=== PATIENT | female | born 1945 | race Caucasian/White ===

== ENCOUNTER → 2016-11-09 | Outpatient (CLI) | payer MEDICARE, BC | LOC: MMGSC 17:16 | PROVIDERS: ATTEND Family Medicine | DX: R94.6 Abnormal results of thyroid function studies (principal) | CPT/HCPCS: 36415; 84439; 84443; 99214 ==

== ENCOUNTER 2016-11-13 19:29 | Inpatient (IN) | payer MEDICARE, BC ==
[2016-11-13] MEDS ORDERED: ASPIRIN 81 MG CHEW PO STA (20:04)
[2016-11-13 20:36] LABS: ALT 33 U/L (9-52); AST 51 U/L (14-36); Acetaminophen <10.0 ug/mL; Alcohol <10 mg/dL; Alkaline Phosphatase 81 U/L (38-126); Anion Gap 7 mmol/L; Blood Urea Nitrogen 32 mg/dL (7-17); Calcium 9.1 mg/dL (8.4-10.2); Carbon Dioxide 30 mmol/L (22-30); Chloride 100 mmol/L (98-107); Glucose 122 mg/dL (74-99); Magnesium 1.6 mg/dL (1.6-2.3); Non-African American GFR(MDRD) >60 (>60 ml/min/1.73 sqM); Potassium 4.2 mmol/L (3.5-5.1); Salicylate <1.0 mg/dL; Sodium 137 mmol/L (137-145); Total Bilirubin 0.6 mg/dL (0.2-1.3); Total Protein 6.3 g/dL (6.3-8.2)
[2016-11-13 20:40] LABS: Basophils % (A) 1 %; CH 29.1; CHCM 31.2; Eosinophils # (A) 0.1 k/uL (0-0.7); Eosinophils % (A) 2 %; HCT 36.1 % (34.0-46.0); HDW 3.17; HGB 11.5 gm/dL (11.4-16.0); Hypochromasia Moderate; Luc # (Auto) 0.11; Luc % (Auto) 2; Lymphocytes # (A) 0.8 k/uL (1.0-4.8); Lymphocytes % (A) 17 %; MCHC 31.9 g/dL (31.0-37.0); MCV 93.9 fL (80.0-100.0); Mean Platelet Volume 8.2; Monocytes # (A) 0.3 k/uL (0-1.0); Monocytes % (A) 7 %; Neutrophils # (A) 3.5 k/uL (1.3-7.7); Neutrophils % (A) 71 %; RBC 3.84 m/uL (3.80-5.40); RDW 15.1 % (11.5-15.5); WBC 4.9 k/uL (3.8-10.6); WBC (Perox) 5.05
--- NOTE | 2016-11-13 20:50 | ED ---
General Adult HPI - General Chief complaint: Psychiatric Symptoms Stated complaint: Anxiety, SOB Time Seen by Provider: 11/13/16 19:55 Source: patient Mode of arrival: EMS Limitations: no limitations - History of Present Illness Initial comments: This 71-year-old white female presents with a complaint of some left-sided chest pain and shortness of breath. She apparently was quite anxious at home. Her said that she was hyperventilating. She presents by EMS. She does have a history of COPD and utilizes 2.5 L per hour of oxygen. She does have a history of anxiety. She also has a history of depression and apparently told the nurse initially that she is suicidal but denies any suicidal ideations to myself and an additional nurse. She complains of some mild lower extremity swelling in her feet. This apparently has been somewhat chronic over the last month or 2. He denies any history of DVT or PE. - Related Data Home Medications Medication Instructions Recorded Confirmed Dextroamphetamine/Amphetamine 15 mg PO BID PRN 08/27/15 11/13/16 [Adderall] Fenofibrate Nanocrystallized 145 mg PO DAILY 08/27/15 11/13/16 [Fenofibrate] LORazepam [Lorazepam] 1 mg PO TID 08/27/15 11/13/16 Metoprolol Tartrate 25 mg PO BID 08/27/15 11/13/16 Pregabalin [Lyrica] 150 mg PO HS 08/27/15 11/13/16 oxyCODONE HCL/ACETAMINOPHEN 1 tab PO QID PRN 08/27/15 11/13/16 [Oxycodone-Acetaminophen 10-325] Albuterol Inhaler [Ventolin Hfa 2 puff INHALATION RT-QID PRN 11/13/16 11/13/16 Inhaler] Ergocalciferol [Vitamin D2] 50,000 unit PO MO 11/13/16 11/13/16 Furosemide [Lasix] 20 mg PO DAILY PRN 11/13/16 11/13/16 Allergies Allergy/AdvReac Type Severity Reaction Status Date / Time No Known Allergies Allergy Verified 11/13/16 20:29 Review of Systems ROS Statement: Those systems with pertinent positive or pertinent negative responses have been documented in the HPI. ROS Other: All systems not noted in ROS Statement are negative. Past Medical History Past Medical History: Cancer, COPD, Fibromyalgia, Hyperlipidemia, Hypertension, Musculoskeletal Disorder, Osteoarthritis (OA) History of Any Multi-Drug Resistant Organisms: None Reported Past Surgical History: Unable to Obtain, Adenoidectomy, Joint Replacement, Orthopedic Surgery, Tonsillectomy Additional Past Surgical History / Comment(s): left lower lung removed, left total knee arthroplasty, tonsillectomy and adenoidectomy. Past Psychological History: No Psychological Hx Reported Smoking Status: Current every day smoker Past Alcohol Use History: None Reported Past Drug Use History: None Reported - Past Family History Mother Family Medical History: Cancer (Mother at age of 69 from colon cancer with metastatic disease) Additional Family Medical History / Comment(s): colon CA Father Family Medical History: Vascular Disorder (Father at age of 70 from a PAD with carotid endarterectomy.) Sister(s) Family Medical History: Cancer (Patient has 6 sisters one from lung cancer at the age of 60 the other one at age 50 from renal failure on hemodialysis ), Renal Disease Son(s) Family Medical History: No Reported History (Patient has 3 sons no major medical problems) General Exam - General Exam Comments Initial Comments: GENERAL: The patient is well nourished and well hydrated. VITAL SIGNS: Heart rate, blood pressure, respiratory rate reviewed as recorded in nurse's notes. EYES: Pupils are round and reactive. Extraocular movements are intact. No conjunctival / lid redness or swelling. ENT: No external evidence of injury, swelling, or ecchymosis. Airway is patent. Throat is clear. NECK: Nontender. No swelling or evidence of injury. No subcutaneous emphysema. Trachea is midline. No thyroid mass. HEART: Regular rate and rhythm. Good peripheral pulses. LUNGS/CHEST: Breath sounds clear and equal bilaterally. No rales, rhonchi, or wheezes. No ecchymosis, subcutaneous emphysema, or tenderness. ABDOMEN: Abdomen soft without tenderness. No palpable masses or organomegaly. No peritoneal signs. No abdominal wall swelling or ecchymosis. EXTREMITIES: No extremity tenderness. Normal muscle tone and function. No thoracolumbar tenderness. There is some slight swelling into the feet. NEUROLOGIC: Sensation is grossly intact. Cranial nerve exam reveals face is symmetrical, tongue is midline, speech is clear. SKIN: No abrasions or ecchymosis is noted. No induration or masses noted. PSYCHIATRIC: Alert and oriented. Appropriate behavior and judgment. Limitations: no limitations Course Vital Signs 11/13/16 11/13/16 11/13/16 19:42 21:17 21:29 Temperature 97.6 F Pulse Rate 72 76 78 Respiratory 22 Rate Blood Pressure 127/57 O2 Sat by Pulse 98 Oximetry 11/13/16 11/13/16 11/14/16 22:22 23:32 00:47 Temperature Pulse Rate 70 74 67 Respiratory 20 20 20 Rate Blood Pressure 132/62 124/69 126/60 O2 Sat by Pulse 96 96 100 Oximetry Medical Decision Making - Medical Decision Making The patient was seen and examined. All diagnostics were reviewed. An EKG was done which shows a normal sinus rhythm at a rate is 73. There is no acute ST-T wave changes identified. The OH interval is 126, castration is 98, and QTC intervals 438. The chest x-ray did not show any acute processes. The d-dimer was elevated on the labs. The BNP is significantly elevated as well. The troponin is moderately elevated. The computed tomography scan of the thorax does show a right upper lobe 2.7 cm mass. No evidence of PE is noted. The patient is sleeping on recheck and is in no distress after receiving some Ativan. She is also given 40 mg of Lasix. It is felt as though she would require admission to the hospital for further treatment. She is agreeable. The family is updated. The case will be discussed with internal medicine shortly. - Lab Data Result diagrams: 11/13/16 20:04 11/13/16 20:04 Lab Results 11/13/16 11/13/16 11/13/16 Range/Units 20:04 20:04 20:04 WBC 4.9 (3.8-10.6) k/uL RBC 3.84 (3.80-5.40) m/uL Hgb 11.5 (11.4-16.0) gm/dL Hct 36.1 (34.0-46.0) % MCV 93.9 (80.0-100.0) fL MCH 30.0 (25.0-35.0) pg MCHC 31.9 (31.0-37.0) g/dL RDW 15.1 (11.5-15.5) % Plt Count 236 (150-450) k/uL Neutrophils % 71 % Lymphocytes % 17 % Monocytes % 7 % Eosinophils % 2 % Basophils % 1 % Neutrophils # 3.5 (1.3-7.7) k/uL Lymphocytes # 0.8 L (1.0-4.8) k/uL Monocytes # 0.3 (0-1.0) k/uL Eosinophils # 0.1 (0-0.7) k/uL Basophils # 0.0 (0-0.2) k/uL Hypochromasia Moderate Anisocytosis (manual) Present Stomatocytes Present PT (9.0-12.0) sec INR (<1.1) APTT (22.0-30.0) sec D-Dimer (<0.60) mg/L FEU Sodium 137 (137-145) mmol/L Potassium 4.2 (3.5-5.1) mmol/L Chloride 100 (98-107) mmol/L Carbon Dioxide 30 (22-30) mmol/L Anion Gap 7 mmol/L BUN 32 H (7-17) mg/dL Creatinine 0.81 (0.52-1.04) mg/dL Est GFR (MDRD) Af Amer >60 (>60 ml/min/1.73 sqM) Est GFR (MDRD) Non-Af >60 (>60 ml/min/1.73 sqM) Glucose 122 H (74-99) mg/dL Calcium 9.1 (8.4-10.2) mg/dL Magnesium 1.6 (1.6-2.3) mg/dL Total Bilirubin 0.6 (0.2-1.3) mg/dL AST 51 H (14-36) U/L ALT 33 (9-52) U/L Alkaline Phosphatase 81 (38-126) U/L Total Creatine Kinase 31 (30-135) U/L CK-MB (CK-2) 2.3 (0.0-2.4) ng/mL CK-MB (CK-2) Rel Index 7.4 Troponin I 0.122 H* (0.000-0.034) ng/mL NT-Pro-B Natriuret Pep pg/mL Total Protein 6.3 (6.3-8.2) g/dL Albumin 3.4 L (3.5-5.0) g/dL Urine Color Urine Appearance (Clear) Urine pH (5.0-8.0) Ur Specific Homer (1.001-1.035) Urine Protein (Negative) Urine Glucose (UA) (Negative) Urine Ketones (Negative) Urine Blood (Negative) Urine Nitrite (Negative) Urine Bilirubin (Negative) Urine Urobilinogen (<2.0) mg/dL Ur Leukocyte Esterase (Negative) Urine RBC (0-5) /hpf Urine WBC (0-5) /hpf Ur Squamous Epith Cells (0-4) /hpf Urine Mucus (None) /hpf Urine Yeast (Budding) (None) /hpf Salicylates <1.0 mg/dL Urine Opiates Screen (NotDetected) Ur Oxycodone Screen (NotDetected) Urine Methadone Screen (NotDetected) Ur Propoxyphene Screen (NotDetected) Acetaminophen <10.0 ug/mL Ur Barbiturates Screen (NotDetected) U Tricyclic Antidepress (NotDetected) Ur Phencyclidine Scrn (NotDetected) Ur Amphetamines Screen (NotDetected) U Methamphetamines Scrn (NotDetected) U Benzodiazepines Scrn (NotDetected) Urine Cocaine Screen (NotDetected) U Marijuana (THC) Screen (NotDetected) Serum Alcohol <10 mg/dL 11/13/16 11/13/16 11/13/16 Range/Units 20:04 20:04 23:20 WBC (3.8-10.6) k/uL RBC (3.80-5.40) m/uL Hgb (11.4-16.0) gm/dL Hct (34.0-46.0) % MCV (80.0-100.0) fL MCH (25.0-35.0) pg MCHC (31.0-37.0) g/dL RDW (11.5-15.5) % Plt Count (150-450) k/uL Neutrophils % % Lymphocytes % % Monocytes % % Eosinophils % % Basophils % % Neutrophils # (1.3-7.7) k/uL Lymphocytes # (1.0-4.8) k/uL Monocytes # (0-1.0) k/uL Eosinophils # (0-0.7) k/uL Basophils # (0-0.2) k/uL Hypochromasia Anisocytosis (manual) Stomatocytes PT 12.5 H (9.0-12.0) sec INR 1.3 (<1.1) APTT 24.7 (22.0-30.0) sec D-Dimer 0.68 H (<0.60) mg/L FEU Sodium (137-145) mmol/L Potassium (3.5-5.1) mmol/L Chloride (98-107) mmol/L Carbon Dioxide (22-30) mmol/L Anion Gap mmol/L BUN (7-17) mg/dL Creatinine (0.52-1.04) mg/dL Est GFR (MDRD) Af Amer (>60 ml/min/1.73 sqM) Est GFR (MDRD) Non-Af (>60 ml/min/1.73 sqM) Glucose (74-99) mg/dL Calcium (8.4-10.2) mg/dL Magnesium (1.6-2.3) mg/dL Total Bilirubin (0.2-1.3) mg/dL AST (14-36) U/L ALT (9-52) U/L Alkaline Phosphatase (38-126) U/L Total Creatine Kinase (30-135) U/L CK-MB (CK-2) (0.0-2.4) ng/mL CK-MB (CK-2) Rel Index Troponin I (0.000-0.034) ng/mL NT-Pro-B Natriuret Pep 95285 pg/mL Total Protein (6.3-8.2) g/dL Albumin (3.5-5.0) g/dL Urine Color Light Yellow Urine Appearance Cloudy H (Clear) Urine pH 6.5 (5.0-8.0) Ur Specific Homer 1.009 (1.001-1.035) Urine Protein Negative (Negative) Urine Glucose (UA) Negative (Negative) Urine Ketones Negative (Negative) Urine Blood Trace H (Negative) Urine Nitrite Positive H (Negative) Urine Bilirubin Negative (Negative) Urine Urobilinogen <2.0 (<2.0) mg/dL Ur Leukocyte Esterase Large H (Negative) Urine RBC 8 H (0-5) /hpf Urine WBC >182 H (0-5) /hpf Ur Squamous Epith Cells <1 (0-4) /hpf Urine Mucus Rare H (None) /hpf Urine Yeast (Budding) Few H (None) /hpf Salicylates mg/dL Urine Opiates Screen Not Detected (NotDetected) Ur Oxycodone Screen Detected H (NotDetected) Urine Methadone Screen Not Detected (NotDetected) Ur Propoxyphene Screen Not Detected (NotDetected) Acetaminophen ug/mL Ur Barbiturates Screen Not Detected (NotDetected) U Tricyclic Antidepress Not Detected (NotDetected) Ur Phencyclidine Scrn Not Detected (NotDetected) Ur Amphetamines Screen Detected H (NotDetected) U Methamphetamines Scrn Not Detected (NotDetected) U Benzodiazepines Scrn Detected H (NotDetected) Urine Cocaine Screen Not Detected (NotDetected) U Marijuana (THC) Screen Not Detected (NotDetected) Serum Alcohol mg/dL Disposition Clinical Impression: Acute anxiety, Acute exacerbation of chronic obstructive airways disease, Depression, Chest pain, Dyspnea, Lung mass, UTI (urinary tract infection), Elevated troponin Disposition: ADMITTED IP TO THIS [facility] Condition: Fair Time of Disposition: 00:53 Decision Date: 11/14/16 Decision Time: 00:53
[2016-11-13] MEDS ORDERED: IPRATROPIUM-ALBUTEROL 3 ML NEB INHALATION STA (20:51)
[2016-11-13 20:53] LABS: Creatine Kinase MB 2.3 ng/mL (0.0-2.4)
[2016-11-13 20:54] LABS: Troponin I 0.122 ng/mL (0.000-0.034)
[2016-11-13 20:56] LABS: INR 1.3 (<1.1); Partial Thromboplastin Time 24.7 sec (22.0-30.0); Prothrombin Time 12.5 sec (9.0-12.0)
[2016-11-13] MEDS ORDERED: NITROGLYCERIN OINT 1 INCH/GM PACKET TOPICAL STA (20:56)
--- NOTE | 2016-11-13 20:59 | XR ---
EXAMINATION TYPE: XR chest 2V DATE OF EXAM: 11/13/2016 8:35 PM COMPARISON: 08/26/2015 HISTORY: Pain TECHNIQUE: Frontal and lateral views of the chest are obtained. FINDINGS: Previously seen left hilar clips redemonstrated. There are a few scattered linear shadows throughout the lung parenchyma bilaterally, seen on the prior study, and likely chronic. Overall, the lung parenchyma appears clear bilaterally. Pleural spaces appear negative. Cardiac silhouette is top normal in size. Bones and soft tissues are unremarkable. IMPRESSION: NO DEFINITE ACUTE PROCESS.
[2016-11-13 21:14] LABS: Stomatocytes Present
[2016-11-13] MEDS ORDERED: RX INFO: IV CONTRAST WAS GIVEN 1 EACH MISC MISCELLANE PRN (22:00)
[2016-11-13] MEDS ORDERED: FUROSEMIDE 10 MG/ML 4 ML VIAL IV STA (22:01)
[2016-11-13] MEDS ORDERED: LORazepam 2 MG/ML SYRINGE IV STA (22:31)
[2016-11-13 23:43] LABS: Appearance,Urine Cloudy (Clear); Bilirubin,Urine Negative (Negative); Glucose,Urine (UA) Negative (Negative); Ketones,Urine Negative (Negative); Leukocyte Esterase,Urine Large (Negative); Mucus,Urine Rare /hpf; Nitrite,Urine Positive (Negative); PH, Urine 6.5 (5.0-8.0); Particle Count 5055; Protein,Urine Negative (Negative); RBC,Urine 8 /hpf (0-5); Specific Gravity,Urine 1.009 (1.001-1.035); Squamous Epithelial Cell,Urine <1 /hpf (0-4); UA Billing (MACRO vs. MICRO) MICRO; Urobilinogen,Urine <2.0 mg/dL (<2.0); WBC,Urine >182 /hpf (0-5)
--- NOTE | 2016-11-14 00:17 | CT ---
ADDENDUM - Added by Bhupendra Campbell M.D. on 12/06/2016 2:49 AM (-07:00) Coronal and sagittal maximum intensity projection reformats were created on a separate workstation and submitted for review. EXAM: CT Chest With Intravenous Contrast CLINICAL HISTORY: Reason: Pain TECHNIQUE: Axial computed tomography images of the chest with intravenous contrast during the arterial phase of enhancement. Coronal and sagittal reformats submitted. CTDI is 30.32 mGy and DLP is 323.91 mGy-cm This CT exam was performed using one or more of the following dose reduction techniques: automated exposure control, adjustment of the mA and/or kV according to patient size, and/or use of iterative reconstruction technique. COMPARISON: No relevant prior studies available. FINDINGS: Pulmonary arteries: Dilated central pulmonary arteries suggesting pulmonary arterial hypertension. No pulmonary embolism. Aorta: No aortic aneurysm or dissection. Lungs: Extensive emphysema, probably centrilobular bilaterally. Spiculated 2.7 cm mass at the periphery/lateral lower segment of the right upper lobe. Pleural space: Small right and left pleural effusion. No pneumothorax. Heart: Unremarkable. No cardiomegaly. No significant pericardial effusion. No evidence of RV dysfunction. Bones/joints: No acute fracture. No dislocation. Soft tissues: Unremarkable. Lymph nodes: Unremarkable. No enlarged lymph nodes. IMPRESSION: No PE. Suspicious 2.7 cm spiculated mass at the right upper lobe. [employer] 11/14/16 00:54 Verify Receipt Verified receipt with DEBRA Handley who verified received by Dr. Harden on 11/14 00:53 (-04:00)
[2016-11-14] MEDS ORDERED: NITROGLYCERIN SL TABS 0.4 MG TAB SUBLINGUAL PRN (01:11)
[2016-11-14] MEDS ORDERED: HEPARIN SODIUM,PORCINE 5,000 UNIT/ML 1 ML VIAL IV ONE (01:11)
[2016-11-14] MEDS ORDERED: HEPARIN SODIUM,PORCINE 5,000 UNIT/ML 1 ML VIAL IV PRN (01:11)
[2016-11-14] MEDS ORDERED: ALBUTEROL NEBULIZED 2.5 MG/3 ML INHALATION PRN (01:15)
[2016-11-14] MEDS ORDERED: NON-FORMULARY DRUG (Dextroamphetamine/Amphetamine [Adderall] 15 MG) PO PRN (01:15)
[2016-11-14] MEDS: HEPARIN SODIUM,PORCINE/D5W PMX 25,000 UNIT in DEXTROSE/WATER 1 500ML.BAG IV SCH (01:38)
[2016-11-14] MEDS: NITROGLYCERIN OINT 1 INCH/GM PACKET TOPICAL SCH ×4 (06:38→23:04)
[2016-11-14] MEDS: METOPROLOL TARTRATE 25 MG TAB PO SCH ×2 (07:55→21:52)
[2016-11-14] MEDS: ASPIRIN 325 MG TAB PO SCH (07:55)
[2016-11-14] MEDS: FUROSEMIDE 10 MG/ML 4 ML VIAL IV SCH ×2 (07:55→21:52)
[2016-11-14] MEDS: oxyCODONE-APAP 10-325MG 1 EACH TAB PO PRN ×2 (07:56→14:42)
[2016-11-14] MEDS: FENOFIBRATE 160 MG TAB PO SCH (07:57)
[2016-11-14] MEDS: LORazepam 1 MG TAB PO SCH ×2 (07:57→17:57)
--- NOTE | 2016-11-14 08:42 | P.CRDCN ---
History of Present Illness Consult date: 11/14/16 Requesting physician: Selena Wiggins Consult reason: chest pain, shortness of breath Chief complaint: Chest discomfort and shortness of breath History of present illness: His is a 71-year-old female with known history of COPD, history of lung cancer approximately 24 years ago, fibromyalgia, major depressive and anxiety disorder, hypertension, hyperlipidemia, family history of premature coronary artery disease, nicotine dependence, is admitted to the hospital with symptoms of progressively worsening shortness of breath with associated left- sided chest discomfort. According to the patient, she's been getting progressively more short of breath at home, she states that when this happens she hyperventilates and then develops chest pain. Patient also states that for the past 3 weeks or more she has noticed an increase in leg swelling bilaterally. She states she has never been told in the past to have any congestive cardiac failure. At the time of my examination this morning, she still appears short of breath, she denies any chest pain at present. KG on presentation here shows normal sinus rhythm with nonspecific ST-T wave changes. Subsequent EKG performed this morning shows normal sinus rhythm with inferior lateral ST-T wave changes. Chest x-ray does not reveal any acute process. White blood cell count 4.9, hemoglobin 11.5, d-dimer 0.68, potassium 4.2, BUN 32 , creatinine 0.8. Troponins 0.12, 0.14. BNP level 12,900. Drug screen positive for oxycodone amphetamines and benzodiazepines. Pressure on arrival 128/58 with a heart rate in the 70s. 98% on 4 L of oxygen. Patient was given 40 mg of IV Lasix in the emergency room and is currently on 40 mg of Lasix IV twice a day. She is also on IV heparin. Past Medical History Past Medical History: Cancer, COPD, Fibromyalgia, Hyperlipidemia, Hypertension, Musculoskeletal Disorder, Osteoarthritis (OA), Pneumonia History of Any Multi-Drug Resistant Organisms: None Reported Past Surgical History: Adenoidectomy, Joint Replacement, Orthopedic Surgery, Tonsillectomy Additional Past Surgical History / Comment(s): left lower lung removed, left total knee arthroplasty, tonsillectomy and adenoidectomy. Past Psychological History: No Psychological Hx Reported Smoking Status: Current every day smoker Past Alcohol Use History: None Reported Past Drug Use History: None Reported - Past Family History Mother Family Medical History: Cancer Additional Family Medical History / Comment(s): colon CA Father Family Medical History: Vascular Disorder Sister(s) Family Medical History: Cancer, Renal Disease Son(s) Family Medical History: No Reported History Medications and Allergies Home Medications Medication Instructions Recorded Confirmed Type Dextroamphetamine/Amphetamine 15 mg PO BID PRN 08/27/15 11/13/16 History [Adderall] Fenofibrate Nanocrystallized 145 mg PO DAILY 08/27/15 11/13/16 History [Fenofibrate] LORazepam [Lorazepam] 1 mg PO TID 08/27/15 11/13/16 History Metoprolol Tartrate 25 mg PO BID 08/27/15 11/13/16 History Pregabalin [Lyrica] 150 mg PO HS 08/27/15 11/13/16 History oxyCODONE HCL/ACETAMINOPHEN 1 tab PO QID PRN 08/27/15 11/13/16 History [Oxycodone-Acetaminophen 10-325] Albuterol Inhaler [Ventolin Hfa 2 puff INHALATION RT-QID PRN 11/13/16 11/13/16 History Inhaler] Ergocalciferol [Vitamin D2] 50,000 unit PO MO 11/13/16 11/13/16 History Furosemide [Lasix] 20 mg PO DAILY PRN 11/13/16 11/13/16 History Allergies Allergy/AdvReac Type Severity Reaction Status Date / Time No Known Allergies Allergy Verified 11/13/16 20:29 Physical Exam Vitals: Vital Signs Temp Pulse Pulse Pulse Resp BP BP 11/14/16 08:00 97.9 F 70 18 127/60 11/14/16 03:13 71 18 11/14/16 02:04 97.1 F L 71 18 126/58 11/14/16 01:42 68 20 102/56 Pulse Ox 11/14/16 08:00 94 L 11/14/16 03:13 11/14/16 02:04 97 11/14/16 01:42 96 Intake and Output 11/13/16 11/14/16 11/14/16 22:59 06:59 14:59 Intake Total 40 Balance 40 Intake: IV 40 0.9 NS 40 Other: # Voids 1 Weight 41.2 kg 41.2 kg Patient Weight 11/15/16 06:59 Weight 41.2 kg PHYSICAL EXAMINATION: HEENT: Head is atraumatic, normocephalic. Pupils equal, round. Neck is supple. There is elevated jugular venous pressure. HEART EXAMINATION: S1 and S2 1 systolic murmur is heard. CHEST EXAMINATION: Lungs reveal decreased air exchange throughout with fine rales to bilateral bases. ABDOMEN: Soft, nontender. Bowel sounds are heard. No organomegaly noted. EXTREMITIES: 2+ peripheral pulses with 2+ evidence of peripheral edema and no calf tenderness noted. NEUROLOGIC patient is awake, alert and oriented -3. Very Anxious. . Results 11/13/16 20:04 11/13/16 20:04 Cardiac Enzymes 11/14/16 11/14/16 Range/Units 03:03 06:32 CK-MB (CK-2) 2.0 (0.0-2.4) ng/mL Troponin I 0.149 H* (0.000-0.034) ng/mL Current Medications Generic Name Dose Route Start Last Admin Trade Name Freq PRN Reason Stop Dose Admin Albuterol Sulfate 2.5 mg 11/14/16 01:15 Ventolin Nebulized INHALATION RT-QID PRN Shortness Of Breath Aspirin 325 mg 11/14/16 09:00 11/14/16 07:55 Aspirin PO 325 mg DAILY PETRA Administration Ergocalciferol 50,000 unit 11/20/16 09:00 Vitamin D2 PO Mo@0900 PETRA Fenofibrate 160 mg 11/14/16 09:00 11/14/16 07:57 Lofibra PO 160 mg DAILY PETRA Administration Furosemide 40 mg 11/14/16 09:00 11/14/16 07:55 Lasix IV 40 mg BID PETRA Administration Heparin Sodium (Porcine) 0 unit 11/14/16 01:11 Heparin IV Q6HR PRN Low PTT Protocol Heparin Sodium/Dextrose 25,000 500 mls @ 14.69 mls/hr 11/14/16 01:15 01:38 unit/ IV Solution IV 12 units/kg/hr .Q24H PETRA 14.69 mls/hr Protocol Administration 12 UNITS/KG/HR Ceftriaxone Sodium 1,000 mg/ 50 mls @ 100 mls/hr 11/14/16 23:00 Sodium Chloride IVPB HS PETRA Lorazepam 1 mg 11/14/16 09:00 11/14/16 07:57 Ativan PO 1 mg TID PTERA Administration Metoprolol Tartrate 25 mg 11/14/16 09:00 11/14/16 07:55 Lopressor PO 25 mg BID PETRA Administration Miscellaneous Information 1 each 11/13/16 22:00 11/13/16 22:19 Rx Info: Iv Contrast Was Given MISCELLANE 11/15/16 22:00 1 each DAILY PRN Administration Per Protocol Nitroglycerin 1 inch 11/14/16 06:00 11/14/16 06:38 Nitro-Bid Oint TOPICAL 1 inch Q6HR PETRA Administration Nitroglycerin 0.4 mg 11/14/16 01:11 Nitrostat SUBLINGUAL Q5M PRN Chest Pain Non-Formulary Medication 15 mg 11/14/16 01:15 Dextroamphetamine/Amphetamine [Adderall] PO BID PRN Alertness Oxycodone/Acetaminophen 1 each 11/14/16 01:15 11/14/16 07:56 Percocet 10-325 PO 1 each QID PRN Administration Pain Intake and Output 11/13/16 11/14/16 11/14/16 22:59 06:59 14:59 Intake Total 40 Balance 40 Intake: IV 40 0.9 NS 40 Other: # Voids 1 Weight 41.2 kg 41.2 kg Patient Weight 11/15/16 06:59 Weight 41.2 kg EKG Interpretations (text) Initial EKG shows a normal sinus rhythm with nonspecific ST-T wave changes, subsequent EKG performed this morning shows normal sinus rhythm with inferior lateral ST-T wave changes. Assessment and Plan Plan: Assessment and plan #1 symptoms of progressively worsening shortness of breath likely a combination of COPD exacerbation and congestive heart failure. LV function unknown at this time. BNP 12,900. Patient is currently on IV Lasix. #2 chest discomfort and symptoms of heartburn, with some atypical features, rule out acute coronary syndrome. Troponins 0.12, 0.14. EKG shows a normal sinus rhythm with inferior lateral ST-T wave changes. #3 COPD #4 history of depressive and anxiety disorder. #5 hypertension #6 hyperlipidemia #7 family history of premature coronary artery disease #8 nicotine dependence Plan We will obtain an echocardiogram with Doppler study, continue IV heparin, continue IV Lasix monitoring intake and output along with daily weights daily lytes BUN and creatinine. Once the patient's heart failure and COPD he has, improved, patient will require further workup to rule out underlying coronary artery disease.Further recommendations to follow. DNP note has been reviewed, I agree with a documented findings and plan of care. Patient was seen and examined.
[2016-11-14 09:09] LABS: Creatine Kinase MB 1.7 ng/mL (0.0-2.4)
[2016-11-14 09:13] LABS: Troponin I 0.144 ng/mL (0.000-0.034)
--- NOTE | 2016-11-14 13:04 | ECHOF ---
Referral Reason:cp and sob MEASUREMENTS -------- HEIGHT: 162.6 cm WEIGHT: 40.8 kg BP: 102/56 RVIDd: 3.5 cm (< 3.3) IVSd: 1.0 cm (0.6 - 1.1) LVIDd: 3.6 cm (3.9 - 5.3) LVPWd: 1.1 cm (0.6 - 1.1) IVSs: 1.6 cm LVIDs: 2.3 cm LVPWs: 1.5 cm LA Diam: 3.5 cm (2.7 - 3.8) LAESV Index (A-L): 16.27 ml/m Ao Diam: 3.2 cm (2.0 - 3.7) AV Cusp: 2.0 cm (1.5 - 2.6) MV EXCURSION: 18.612 mm (> 18.000) MV EF SLOPE: 80 mm/s (70 - 150) EPSS: 0.1 cm MV E Chip: 0.59 m/s MV DecT: 126 ms MV A Chip: 0.51 m/s MV E/A Ratio: 1.17 RAP: 5.00 mmHg RVSP: 75.87 mmHg FINDINGS -------- Sinus rhythm. This was a technically good study. The left ventricular size is normal. There is borderline concentric left ventricular hypertrophy. Overall left ventricular systolic function is normal with, an EF between 55 - 60 %. The right ventricle is mildly enlarged. Normal LA size by volume 22+/-6 ml/m2. The right atrium is normal in size. Aortic valve is trileaflet and is mildly thickened. The mitral valve leaflets are mildly thickened. Mild mitral annular calcification present. [id number] mitral regurgitation is present. Moderate to severe tricuspid regurgitation present. There is severe pulmonary hypertension. The right ventricular systolic pressure, as measured by Doppler, is 75.87mmHg. Trace/mild (physiologic) pulmonic regurgitation. The aortic root size is normal. Normal inferior vena cava with normal inspiratory collapse consistent with estimated right atrial pressure of 5 mmHg. The pericardium is normal. CONCLUSIONS -------- 1. Sinus rhythm. 2. Mild mitral annular calcification present. 3. [id number] mitral regurgitation is present. 4. Moderate to severe tricuspid regurgitation present. 5. There is severe pulmonary hypertension. 6. The right ventricular systolic pressure, as measured by Doppler, is 75.87mmHg. 7. Trace/mild (physiologic) pulmonic regurgitation. 8. The aortic root size is normal. 9. Normal inferior vena cava with normal inspiratory collapse consistent with estimated right atrial pressure of 5 mmHg. 10. The pericardium is normal. 11. This was a technically good study. 12. The left ventricular size is normal. 13. There is borderline concentric left ventricular hypertrophy. 14. Overall left ventricular systolic function is normal with, an EF between 55 - 60 %. 15. The right ventricle is mildly enlarged. 16. Normal LA size by volume 22+/-6 ml/m2. 17. Aortic valve is trileaflet and is mildly thickened. 18. The mitral valve leaflets are mildly thickened. EFFICIENCY EXPERT: Leena Lamb RDCS
--- NOTE | 2016-11-14 20:47 | P.HPIM ---
History of Present Illness H&P Date: 11/14/16 Chief Complaint: Shortness of breath This is a 70-year-old female one of Dr. Iris Sauceda with a previous medical history significant for chronic obstructive pulmonary disease, history of lung cancer that was diagnosed about 22 years ago status post left lower lobe resection, osteoarthritis, fibromyalgia, cachexia and significant weight loss, major depressive disorder, anxiety disorder with panic attacks, and current tobacco dependency patient stated that she came to the emergency department at [facility] secondary to left-sided chest pain, worsening shortness of breath, dyspnea on exertion, and pleurisy. She also has increasing lower extremity edema worse within the past 3 weeks, patient denies any fever she has some yellow UA screen sputum, patient has had increasing stress. She continues to smoke depending on her stress level, she has home O2 at 3 L is a cannula, patient has a nebulizer however the insurance does not call for nebulized medications, she also has been losing some weight with decreasing appetite In the emergency room, as EKG changes showing inferior lateral ST-T wave changes, chest x-ray did not reveal an acute process, CTA of the chest failed to reveal any pulmonary emboli, there is a spiculated 2.7 cm mass at the periphery L lower segment of the right upper lobe,, dilated central pulmonary arteries suggesting pulmonary arterial hypertension small right and left pleural effusion no pneumothorax third troponin was noted to be elevated, patient was admitted with what was presumed to be CHF exacerbation, consult was made with cardiology and echo cardiogram was requested Review of Systems Constitutional: Reports as per HPI, Reports anorexia, Reports chills, Reports fatigue, Reports poor appetite, Reports weakness, Reports weight loss, Denies chronic headaches, Denies chronic pain, Denies daytime sleepiness, Denies fever , Denies lethargy, Denies malaise, Denies night sweats, Denies sweats, Denies weight gain Ears, nose, mouth and throat: Reports as per HPI, Denies ant. neck pain, Denies bleeding gums, Denies dental pain, Denies dysphagia, Denies epistaxis, Denies headache, Denies hoarseness, Denies mouth pain, Denies nasal congestion, Denies nasal discharge, Denies neck fullness/pressure, Denies neck lump, Denies nose pain, Denies odynophagia, Denies post-nasal drip, Denies sinus pain, Denies sinus pressure, Denies swelling in mouth, Denies swelling in throat, Denies sore throat, Denies vertigo, Denies voice changes Cardiovascular: Reports as per HPI, Denies chest pain, Denies claudication, Denies decreased exercise tolerance, Denies dyspnea on exertion, Denies edema, Denies high blood pressure, Denies irregular heart beat, Denies leg edema, Denies lightheadedness, Denies orthopnea, Denies palpitations, Denies paroxysmal nocturnal dyspnea, Denies phlebitis, Denies rapid heart beat, Denies shortness of breath, Denies syncope Respiratory: Reports as per HPI, Reports cough, Reports cough with sputum, Reports dyspnea, Reports home oxygen, Reports pain on inspiration, Reports respiratory infections, Reports wheezing, Denies congestion, Denies excessive sputum, Denies hemoptysis, Denies pain, Denies pleurisy, Denies sleep apnea, Denies snoring Gastrointestinal: Reports as per HPI, Denies abdominal pain, Denies belching, Denies bloating, Denies BRBPR, Denies change in bowel habits, Denies coffee ground emesis, Denies constipation, Denies diarrhea, Denies dyspepsia, Denies early satiety, Denies excessive gas, Denies heartburn, Denies hematemesis, Denies hematochezia, Denies indigestion, Denies jaundice, Denies lactose intolerance, Denies loss of appetite, Denies melena, Denies nausea, Denies vomiting Genitourinary: Reports as per HPI Menstruation: Reports as per HPI Musculoskeletal: Reports as per HPI Integumentary: Reports as per HPI Neurological: Reports as per HPI Past Medical History Past Medical History: Cancer, COPD, Fibromyalgia, Hyperlipidemia, Hypertension, Musculoskeletal Disorder, Osteoarthritis (OA), Pneumonia History of Any Multi-Drug Resistant Organisms: None Reported Past Surgical History: Adenoidectomy, Joint Replacement, Orthopedic Surgery, Tonsillectomy Additional Past Surgical History / Comment(s): left lower lung removed, left total knee arthroplasty, tonsillectomy and adenoidectomy. Past Psychological History: No Psychological Hx Reported Smoking Status: Current every day smoker Past Alcohol Use History: None Reported Past Drug Use History: None Reported - Past Family History Mother Family Medical History: Cancer Additional Family Medical History / Comment(s): colon CA Father Family Medical History: Vascular Disorder Sister(s) Family Medical History: Cancer, Renal Disease Son(s) Family Medical History: No Reported History Medications and Allergies Home Medications Medication Instructions Recorded Confirmed Type Dextroamphetamine/Amphetamine 15 mg PO BID PRN 08/27/15 11/13/16 History [Adderall] Fenofibrate Nanocrystallized 145 mg PO DAILY 08/27/15 11/13/16 History [Fenofibrate] LORazepam [Lorazepam] 1 mg PO TID 08/27/15 11/13/16 History Metoprolol Tartrate 25 mg PO BID 08/27/15 11/13/16 History Pregabalin [Lyrica] 150 mg PO HS 08/27/15 11/13/16 History oxyCODONE HCL/ACETAMINOPHEN 1 tab PO QID PRN 08/27/15 11/13/16 History [Oxycodone-Acetaminophen 10-325] Albuterol Inhaler [Ventolin Hfa 2 puff INHALATION RT-QID PRN 11/13/16 11/13/16 History Inhaler] Ergocalciferol [Vitamin D2] 50,000 unit PO MO 11/13/16 11/13/16 History Furosemide [Lasix] 20 mg PO DAILY PRN 11/13/16 11/13/16 History Allergies Allergy/AdvReac Type Severity Reaction Status Date / Time No Known Allergies Allergy Verified 11/13/16 20:29 Physical Exam Vitals: Vital Signs Temp Pulse Pulse Pulse Resp BP BP 11/14/16 08:00 97.9 F 70 18 127/60 11/14/16 03:13 71 18 11/14/16 02:04 97.1 F L 71 18 126/58 11/14/16 01:42 68 20 102/56 Pulse Ox 11/14/16 08:00 94 L 11/14/16 03:13 11/14/16 02:04 97 11/14/16 01:42 96 Intake and Output 11/13/16 11/14/16 11/14/16 22:59 06:59 14:59 Intake Total 40 Balance 40 Intake: IV 40 0.9 NS 40 Other: # Voids 1 Weight 41.2 kg 41.2 kg Patient Weight 11/15/16 06:59 Weight 41.2 kg - Constitutional General appearance: cooperative, no acute distress, thin - EENT Eyes: anicteric sclerae, EOMI, PERRLA, poor dentition, normal appearance ENT: NA/AT, normal oropharynx - Neck Neck: no lymphadenopathy, normal ROM, no other, no rigidity, no stridor, no thyromegaly - Respiratory Respiratory: bilateral: CTA, diminished, wheezing - Cardiovascular Rhythm: regular Heart sounds: normal: S1, S2 Abnormal Heart Sounds: no systolic murmur, no diastolic murmur, no rub, no S3 Gallop, no S4 Gallop, no click, no other - Gastrointestinal General gastrointestinal: normal bowel sounds, soft - Integumentary Integumentary: normal, normal turgor - Neurologic Neurologic: CNII-XII intact - Musculoskeletal Musculoskeletal: gait normal, strength equal bilaterally - Psychiatric Psychiatric: A&O x's 3, appropriate affect, intact judgment & insight Results CBC & Chem 7: 11/13/16 20:04 11/13/16 20:04 Labs: Abnormal Lab Results - Last 24 Hours (Table) 11/14/16 11/14/16 11/14/16 Range/Units 06:32 08:09 08:09 APTT 48.1 H (22.0-30.0) sec Total Creatine Kinase 29 L (30-135) U/L Troponin I 0.149 H* 0.144 H* (0.000-0.034) ng/mL Laboratory Results WBC 4.9 k/uL (3.8-10.6) 11/13/16 20:04 RBC 3.84 m/uL (3.80-5.40) 11/13/16 20:04 Hgb 11.5 gm/dL (11.4-16.0) 11/13/16 20:04 Hct 36.1 % (34.0-46.0) 11/13/16 20:04 MCV 93.9 fL (80.0-100.0) 11/13/16 20:04 MCH 30.0 pg (25.0-35.0) 11/13/16 20:04 MCHC 31.9 g/dL (31.0-37.0) 11/13/16 20:04 RDW 15.1 % (11.5-15.5) 11/13/16 20:04 Plt Count 236 k/uL (150-450) 11/13/16 20:04 Neutrophils % 71 % 11/13/16 20:04 Lymphocytes % 17 % 11/13/16 20:04 Monocytes % 7 % 11/13/16 20:04 Eosinophils % 2 % 11/13/16 20:04 Basophils % 1 % 11/13/16 20:04 Neutrophils # 3.5 k/uL (1.3-7.7) 11/13/16 20:04 Lymphocytes # 0.8 k/uL (1.0-4.8) L 11/13/16 20:04 Monocytes # 0.3 k/uL (0-1.0) 11/13/16 20:04 Eosinophils # 0.1 k/uL (0-0.7) 11/13/16 20:04 Basophils # 0.0 k/uL (0-0.2) 11/13/16 20:04 Hypochromasia Moderate 11/13/16 20:04 Anisocytosis (manual) Present 11/13/16 20:04 Stomatocytes Present 11/13/16 20:04 PT 12.5 sec (9.0-12.0) H 11/13/16 20:04 INR 1.3 (<1.1) 11/13/16 20:04 APTT 48.1 sec (22.0-30.0) H 11/14/16 08:09 D-Dimer 0.68 mg/L FEU (<0.60) H 11/13/16 20:04 Sodium 137 mmol/L (137-145) 11/13/16 20:04 Potassium 4.2 mmol/L (3.5-5.1) 11/13/16 20:04 Chloride 100 mmol/L (98-107) 11/13/16 20:04 Carbon Dioxide 30 mmol/L (22-30) 11/13/16 20:04 Anion Gap 7 mmol/L 11/13/16 20:04 BUN 32 mg/dL (7-17) H 11/13/16 20:04 Creatinine 0.81 mg/dL (0.52-1.04) 11/13/16 20:04 Est GFR (MDRD) Af Amer >60 (>60 ml/min/1.73 sqM) 11/13/16 20:04 Est GFR (MDRD) Non-Af >60 (>60 ml/min/1.73 sqM) 11/13/16 20:04 Glucose 122 mg/dL (74-99) H 11/13/16 20:04 Calcium 9.1 mg/dL (8.4-10.2) 11/13/16 20:04 Magnesium 1.6 mg/dL (1.6-2.3) 11/13/16 20:04 Total Bilirubin 0.6 mg/dL (0.2-1.3) 11/13/16 20:04 AST 51 U/L (14-36) H 11/13/16 20:04 ALT 33 U/L (9-52) 11/13/16 20:04 Alkaline Phosphatase 81 U/L (38-126) 11/13/16 20:04 Total Creatine Kinase 29 U/L (30-135) L 11/14/16 08:09 CK-MB (CK-2) 1.7 ng/mL (0.0-2.4) 11/14/16 08:09 CK-MB (CK-2) Rel Index 5.9 11/14/16 08:09 Troponin I 0.144 ng/mL (0.000-0.034) H* 11/14/16 08:09 NT-Pro-B Natriuret Pep 56587 pg/mL 11/13/16 20:04 Total Protein 6.3 g/dL (6.3-8.2) 11/13/16 20:04 Albumin 3.4 g/dL (3.5-5.0) L 11/13/16 20:04 Urine Color Light Yellow 11/13/16 23:20 Urine Appearance Cloudy (Clear) H 11/13/16 23:20 Urine pH 6.5 (5.0-8.0) 11/13/16 23:20 Ur Specific [place] 1.009 (1.001-1.035) 11/13/16 23:20 Urine Protein Negative (Negative) 11/13/16 23:20 Urine Glucose (UA) Negative (Negative) 11/13/16 23:20 Urine Ketones Negative (Negative) 11/13/16 23:20 Urine Blood Trace (Negative) H 11/13/16 23:20 Urine Nitrite Positive (Negative) H 11/13/16 23:20 Urine Bilirubin Negative (Negative) 11/13/16 23:20 Urine Urobilinogen <2.0 mg/dL (<2.0) 11/13/16 23:20 Ur Leukocyte Esterase Large (Negative) H 11/13/16 23:20 Urine RBC 8 /hpf (0-5) H 11/13/16 23:20 Urine WBC >182 /hpf (0-5) H 11/13/16 23:20 Ur Squamous Epith Cells <1 /hpf (0-4) 11/13/16 23:20 Urine Mucus Rare /hpf (None) H 11/13/16 23:20 Urine Yeast (Budding) Few /hpf (None) H 11/13/16 23:20 Salicylates <1.0 mg/dL 11/13/16 20:04 Urine Opiates Screen Not Detected (NotDetected) 11/13/16 23:20 Ur Oxycodone Screen Detected (NotDetected) H 11/13/16 23:20 Urine Methadone Screen Not Detected (NotDetected) 11/13/16 23:20 Ur Propoxyphene Screen Not Detected (NotDetected) 11/13/16 23:20 Acetaminophen <10.0 ug/mL 11/13/16 20:04 Ur Barbiturates Screen Not Detected (NotDetected) 11/13/16 23:20 U Tricyclic Antidepress Not Detected (NotDetected) 11/13/16 23:20 Ur Phencyclidine Scrn Not Detected (NotDetected) 11/13/16 23:20 Ur Amphetamines Screen Detected (NotDetected) H 11/13/16 23:20 U Methamphetamines Scrn Not Detected (NotDetected) 11/13/16 23:20 U Benzodiazepines Scrn Detected (NotDetected) H 11/13/16 23:20 Urine Cocaine Screen Not Detected (NotDetected) 11/13/16 23:20 U Marijuana (THC) Screen Not Detected (NotDetected) 11/13/16 23:20 Serum Alcohol <10 mg/dL 11/13/16 20:04 Thrombosis Risk Factor Assmnt - DVT/VTE Prophylaxis DVT/VTE Prophylaxis: Pharmacologic Prophylaxis ordered, Mechanical Prophylaxis ordered - Choose All That Apply Any of the Below Risk Factors Present?: Yes Each Factor Represents 1 point: Abnormal pulmonary function (COPD), Swollen legs (current) Each Risk Factor Represents 2 Points: Arthroscopic surgery Thrombosis Risk Factor Assessment Total Risk Factor Score: 4 Thrombosis Risk Factor Assessment Level: Moderate Risk Assessment and Plan Plan: 1. CHF exacerbation with elevated troponin, diastolic CHF is suspected, echocardiogram was requested ejection fraction of 55-60% moderate to severe tricuspid regurgitation, mild to moderate mitral regurgitation, right ventricular systolic pressure of 78. Patient currently is requiring diuretics 40 mg Lasix every 12 hours, cardiology consultation. 2. COPD exacerbation for which patient requires Solu-Medrol nebulized treatments trial and Atrovent, Pulmicort consult will be made with her primary pulmonary doctor Dr. Sauceda, 3. New lung mass noted spiculated lesion right upper lobe 2.7 cm, patient also will be seen consultation by Dr. Sauceda to formally worked this when up,, imaging studies needs to be done to include bone scan and PET/CT 4. Known history off lung cancer diagnosed 22 years ago 5. Severe pulmonary hypertension patient currently would be on IV diuretics, cardiology to address other pulmonary hypertension medications 6. Elevated troponin echocardiogram as mentioned above, nonspecific EKG changes , possibly related to chronic diastolic CHF and severe pulmonary hypertension for acute coronary syndrome cannot be ruled out 7. Chronic depression and anxiety disorder and currently is on Ativan 1 milligram 3 times a day will be decreased to 0.5 mg 3 times a day, adderall has to be discontinued secondary to weight loss, Remeron will be started at 15 mg hs and currently is not homicidal without any suicidal ideation, patient might need to take consultation should she decompensate further 8Hypertensive cardio vascular disease metoprolol 25 mg twice a day 9 Hyperlipidemia on fenofibrate 145 mg daily 10 Active tobacco dependency 11Chronic opiate use on oxycodone 10 this needs to be investigated further continue on Lyrica 150 at bedtime 12. Anorexia cachexia malignancy and anxiety related most likely, stop adderall , start on Remeron 15 mg at bedtime 12 gI prophylaxis 13 DVT prophylaxis 14 prognsosi guarded CODE STATUS full It Time with Patient: Greater than 30
[2016-11-14] MEDS ORDERED: MIRTAZAPINE 15 MG TAB PO SCH (21:00)
[2016-11-14] MEDS: LORazepam 0.5 MG TAB PO SCH (21:54)
[2016-11-15] MEDS: HEPARIN SODIUM,PORCINE/D5W PMX 25,000 UNIT in DEXTROSE/WATER 1 500ML.BAG IV SCH (05:00)
[2016-11-15] MEDS: NITROGLYCERIN OINT 1 INCH/GM PACKET TOPICAL SCH ×3 (06:14→19:40)
[2016-11-15 08:53] LABS: Cholesterol 111 mg/dL (<200); HDL Cholesterol 42 mg/dL (40-60); Triglycerides 110 mg/dL (<150)
--- NOTE | 2016-11-15 10:49 | P.CNPUL ---
History of Present Illness Consult date: 11/15/16 Requesting physician: Selena Wiggins Reason for consult: abnormal CXR/CT Chief complaint: Shortness of breath, anxiety, left-sided chest pain History of present illness: This is a pleasant 71-year-old female patient follows with Dr. Simmons as her primary care physician. She does have a history of hyperlipidemia, hypertension , osteoarthritis, anxiety, fibromyalgia. She also has severe oxygen dependent chronic obstructive pulmonary disease and follows with Dr. Sauceda in our office for the same. The patient is a 50+ pack per day smoking history as well. The patient had a lung cancer and is status post left lower lobe lobectomy performed by Dr. Mcmahon approximately 20 years ago. She denies any recurrence of cancer. She presented here 11/13/2016 with complaints of left- sided chest pain, shortness of breath and anxiety. She was hyperventilating as well. A urine drug screen was positive for oxycodone, amphetamines and benzodiazepines. A chest x-ray revealed no acute cardiopulmonary process. An echocardiogram revealed evidence of severe pulmonary hypertension with an RVSP of 75 mmHg. Her troponins were borderline at 0.122, 0.149, 0.144. A heparin drip was initiated. Her proBNP level was 12,900. She is receiving Lasix 40 mg IV push every 12 hours. She has preserved left ventricular systolic function with estimated ejection fraction 55-60%. A CT angiogram ruled out pulmonary embolism however there was a noted 2.7 cm spiculated lesion at the periphery/ lateral lower segment of the right upper lobe. Significant emphysema is noted as well. The patient is seen today in consultation on the selective care unit. She is currently awake and alert in no acute distress. Her main complaint today is that of a headache. She denies any worsening shortness of breath, cough or congestion. No chills or night sweats. She has had some recent weight loss and poor appetite. She is maintaining O2 saturations at 100% on 4 L /m per nasal cannula. She's been afebrile. Hemodynamically stable. Review of Systems 14 point review of system was conducted. All negative other than as mentioned in the HPI. Past Medical History Past Medical History: Cancer, COPD, Fibromyalgia, Hyperlipidemia, Hypertension, Musculoskeletal Disorder, Osteoarthritis (OA), Pneumonia History of Any Multi-Drug Resistant Organisms: None Reported Past Surgical History: Adenoidectomy, Joint Replacement, Orthopedic Surgery, Tonsillectomy Additional Past Surgical History / Comment(s): left lower lung removed, left total knee arthroplasty, tonsillectomy and adenoidectomy. Past Psychological History: No Psychological Hx Reported Smoking Status: Current every day smoker Past Alcohol Use History: None Reported Past Drug Use History: None Reported - Past Family History Mother Family Medical History: Cancer Additional Family Medical History / Comment(s): colon CA Father Family Medical History: Vascular Disorder Sister(s) Family Medical History: Cancer, Renal Disease Son(s) Family Medical History: No Reported History Medications and Allergies Home Medications Medication Instructions Recorded Confirmed Type Dextroamphetamine/Amphetamine 15 mg PO BID PRN 08/27/15 11/13/16 History [Adderall] Fenofibrate Nanocrystallized 145 mg PO DAILY 08/27/15 11/13/16 History [Fenofibrate] LORazepam [Lorazepam] 1 mg PO TID 08/27/15 11/13/16 History Metoprolol Tartrate 25 mg PO BID 08/27/15 11/13/16 History Pregabalin [Lyrica] 150 mg PO HS 08/27/15 11/13/16 History oxyCODONE HCL/ACETAMINOPHEN 1 tab PO QID PRN 08/27/15 11/13/16 History [Oxycodone-Acetaminophen 10-325] Albuterol Inhaler [Ventolin Hfa 2 puff INHALATION RT-QID PRN 11/13/16 11/13/16 History Inhaler] Ergocalciferol [Vitamin D2] 50,000 unit PO MO 11/13/16 11/13/16 History Furosemide [Lasix] 20 mg PO DAILY PRN 11/13/16 11/13/16 History Allergies Allergy/AdvReac Type Severity Reaction Status Date / Time No Known Allergies Allergy Verified 11/13/16 20:29 Physical Exam Vitals: Vital Signs Temp Pulse Resp BP Pulse Ox 11/15/16 03:51 77 16 11/15/16 03:50 98 F 77 16 130/63 100 11/14/16 23:44 75 16 11/14/16 23:43 75 16 122/58 93 L 11/14/16 20:00 97.1 F L 70 16 132/62 96 11/14/16 16:00 65 20 100/49 95 11/14/16 12:00 97.6 F 73 18 119/56 96 Intake and Output 11/14/16 11/15/16 11/15/16 22:59 06:59 14:59 Intake Total 400 402.016 Output Total 600 1700 200 Balance -200 -1297.984 -200 Intake: IV 40 0.9 NS 40 Intake, IV Titration 402.016 Amount Heparin Sodium,Porcine/ 402.016 D5w Pmx 25,000 unit In Dextrose/Water 1 500ml. bag @ 12 UNITS/KG/HR 14. 69 mls/hr IV .Q24H PETRA Rx #:[id number] Oral 360 Output: Urine 600 1700 200 Other: # Voids 1 1 Weight 41 kg GENERAL EXAM: Frail, cachectic. Alert, comfortable in no apparent distress. HEAD: Normocephalic. EYES: Normal reaction of pupils, equal size. NOSE: Clear with pink turbinates. THROAT: No erythema or exudates. NECK: No masses, no JVD. CHEST: No chest wall deformity. LUNGS: Equal air entry with end expiratory wheeze. Diminished throughout.. CVS: S1 and S2 normal with no audible murmurs, regular rhythm. ABDOMEN: No hepatosplenomegaly, normal bowel sounds, no guarding or rigidity. SPINE: No scoliosis or deformity SKIN: No rashes CENTRAL NERVOUS SYSTEM: No focal deficits, tone is normal in all 4 extremities. Extremities: There is trace peripheral edema. No clubbing, no cyanosis. Peripheral pulses are intact. Results - Laboratory Findings CBC and BMP: 11/13/16 20:04 11/13/16 20:04 PT/INR, D-dimer PT 12.5 sec (9.0-12.0) H 11/13/16 20:04 INR 1.3 (<1.1) 11/13/16 20:04 D-Dimer 0.68 mg/L FEU (<0.60) H 11/13/16 20:04 Abnormal lab findings: Abnormal Labs 11/14/16 11/14/16 11/14/16 06:32 08:09 08:09 APTT 48.1 H Total Creatine Kinase 29 L Troponin I 0.149 H* 0.144 H* 11/15/16 08:09 APTT 43.1 H Total Creatine Kinase Troponin I - Diagnostic Findings Chest x-ray: image reviewed CT scan - chest: image reviewed Assessment and Plan Plan: Impression: #1 Acute on chronic hypoxic respiratory failure, multifactorial, secondary to acute exacerbation of severe oxygen dependent chronic obstructive pulmonary disease, acute exacerbation of diastolic congestive heart failure, chronic and ongoing tobacco dependence, anxiety. #2 Acute exacerbation of diastolic congestive heart failure. Preserved left ventricular systolic function with estimated ejection fraction 55-60%. #3 Severe pulmonary hypertension, RVSP 75 mmHg. #4 Borderline troponin leak. Currently on heparin drip. #5 Acute exacerbation of severe oxygen dependent chronic obstructive pulmonary disease. Suspect anorexia/cachexia syndrome. #6 Chronic and ongoing tobacco dependence. #7 2.7 cm spiculated lesion at the periphery/lower segment of the right upper lobe in a patient with a previous history of left lower lobe lung cancer status post lobectomy greater than 20 years ago. No chemotherapy or radiation at that time. #8 History of anxiety. #9 Fibromyalgia. #10 Hypertension. #11 Hyperlipidemia. #12 Osteoarthritis. #13 Urine drug screen positive for oxycodone, benzodiazepines and amphetamines. #14 Urinary tract infection, culture pending. #15 Poor overall functional performance based on the above-mentioned comorbidities. Plan: The patient was seen and evaluated by Dr. Sauceda. Her chest x-ray, CT angiogram and labs were reviewed. The spiculated lesion is quite peripheral and may be difficult to obtain a transbronchial biopsy, the location may be difficult for CT-guided fine-needle aspirate as well. A PET scan in the outpatient setting would be beneficial to determine if there is any significant SUV uptake in that area. In the interim, we'll continue with her treatment for COPD exacerbation. We will add bronchodilators 4 times a day, Pulmicort inhalations twice a day and IV Solu-Medrol. She is on ceftriaxone. She is being diuresed. She is educated regarding the importance of complete smoking cessation. A NicoDerm patch will be offered. We will continue to follow and make further recommendations based on her clinical status. Time with Patient: Greater than 30
[2016-11-15] MEDS: IPRATROPIUM-ALBUTEROL 3 ML NEB INHALATION SCH ×3 (11:14→19:45)
[2016-11-15] MEDS: ASPIRIN 325 MG TAB PO SCH (11:18)
[2016-11-15] MEDS: methylPREDNISolone SOD SUCCI 40 MG/ML 1 ML VIAL IV SCH ×2 (11:18→19:40)
[2016-11-15] MEDS: FUROSEMIDE 10 MG/ML 4 ML VIAL IV SCH ×2 (11:18→20:56)
[2016-11-15] MEDS: FENOFIBRATE 160 MG TAB PO SCH (11:18)
[2016-11-15] MEDS: METOPROLOL TARTRATE 25 MG TAB PO SCH ×2 (11:18→20:56)
[2016-11-15] MEDS: LORazepam 0.5 MG TAB PO SCH ×3 (11:19→21:55)
[2016-11-15] MEDS: NICOTINE 14MG/24HR PATCH TRANSDERM SCH (11:19)
--- NOTE | 2016-11-15 14:31 | P.PN ---
Subjective This is a 70-year-old female one of Dr. Iris Sauceda with a previous medical history significant for chronic obstructive pulmonary disease, history of lung cancer that was diagnosed about 22 years ago status post left lower lobe resection, osteoarthritis, fibromyalgia, cachexia and significant weight loss, major depressive disorder, anxiety disorder with panic attacks, and current tobacco dependency patient stated that she came to the emergency department at [facility] secondary to left-sided chest pain, worsening shortness of breath, dyspnea on exertion, and pleurisy. She also has increasing lower extremity edema worse within the past 3 weeks, patient denies any fever she has some yellow UA screen sputum, patient has had increasing stress. She continues to smoke depending on her stress level, she has home O2 at 3 L is a cannula, patient has a nebulizer however the insurance does not call for nebulized medications, she also has been losing some weight with decreasing appetite In the emergency room, as EKG changes showing inferior lateral ST-T wave changes, chest x-ray did not reveal an acute process, CTA of the chest failed to reveal any pulmonary emboli, there is a spiculated 2.7 cm mass at the periphery L lower segment of the right upper lobe,, dilated central pulmonary arteries suggesting pulmonary arterial hypertension small right and left pleural effusion no pneumothorax third troponin was noted to be elevated, patient was admitted with what was presumed to be CHF exacerbation, consult was made with cardiology and echo cardiogram was requested 11/15: Echocardiogram reveals moderate mitral regurgitation, severe tricuspid regurgitation, severe pulmonary hypertension, borderline concentric left ventricular hypertrophy, EF 55-60%. Cardiology has recommended continuing IV heparin and IV Lasix and she will have workup for coronary artery disease once stabilized. Triglycerides 110, cholesterol 111, LDL 47 and HDL 42. Patient has been evaluated by pulmonary medicine. Solu-Medrol at to 40 mg every 8 hours. Plan for outpatient PET scan. Patient is sleepy today for which Remeron is changed to suppertime. Objective - Vital Signs Vital signs: Vital Signs Temp 98 F 11/15/16 03:50 Pulse 77 11/15/16 03:51 Resp 16 11/15/16 03:51 BP 130/63 11/15/16 03:50 Pulse Ox 100 11/15/16 03:50 Intake & Output 11/14/16 11/15/16 11/15/16 18:59 06:59 18:59 Intake Total 770 442.016 Output Total 500 2100 Balance 270 -1657.984 Weight 41.2 kg 41 kg Intake: IV 40 0.9 NS 40 Intake, IV Titration 50 402.016 Amount Heparin Sodium,Porcine/ 402.016 D5w Pmx 25,000 unit In Dextrose/Water 1 500ml. bag @ 12 UNITS/KG/HR 14. 69 mls/hr IV .Q24H [facility] Rx #:[id number] cefTRIAXone 1,000 mg In 50 Sodium Chloride 0.9% 50 ml @ 100 mls/hr IVPB HS [facility] Rx#:[id number] Oral 720 Output: Urine 500 2100 Other: # Voids 1 1 - Exam General appearance: cooperative, no acute distress, thin - EENT Eyes: anicteric sclerae, EOMI, PERRLA, poor dentition, normal appearance ENT: NA/AT, normal oropharynx - Neck Neck: no lymphadenopathy, normal ROM, no other, no rigidity, no stridor, no thyromegaly - Respiratory Respiratory: bilateral: CTA, diminished, wheezing - Cardiovascular Rhythm: regular Heart sounds: normal: S1, S2 Abnormal Heart Sounds: no systolic murmur, no diastolic murmur, no rub, no S3 Gallop, no S4 Gallop, no click, no other - Gastrointestinal General gastrointestinal: normal bowel sounds, soft - Integumentary Integumentary: normal, normal turgor - Neurologic Neurologic: CNII-XII intact - Musculoskeletal Musculoskeletal: gait normal, strength equal bilaterally - Psychiatric Psychiatric: A&O x's 3, appropriate affect, intact judgment & insight - Labs CBC & Chem 7: 11/13/16 20:04 11/13/16 20:04 Labs: Abnormal Lab Results - Last 24 Hours (Table) 11/14/16 Range/Units 08:09 Total Creatine Kinase 29 L (30-135) U/L Troponin I 0.144 H* (0.000-0.034) ng/mL Assessment and Plan Plan: 1. Acute on chronic diastolic heart failure. Cardiology consult appreciated. Patient is currently on Lasix 40 mg IV twice daily. Echocardiogram as above. Continue Lopressor. 2. COPD exacerbation for which patient requires Solu-Medrol nebulized treatments trial and Atrovent, Pulmicort consult will be made with her primary pulmonary doctor Dr. Sauceda, 3. New lung mass noted spiculated lesion right upper lobe 2.7 cm, patient also will be seen consultation by Dr. Sauceda to formally worked this when up, imaging studies needs to be done to include bone scan and PET/CT 4. Known history of lung cancer diagnosed 22 years ago 5. Severe pulmonary hypertension patient currently would be on IV diuretics, cardiology to address other pulmonary hypertension medications 6. Elevated troponin echocardiogram as mentioned above, nonspecific EKG changes , possibly related to chronic diastolic CHF and severe pulmonary hypertension for acute coronary syndrome cannot be ruled out 7. Recurrent depression and generalized anxiety disorder and currently is on Ativan 1 milligram 3 times a day will be decreased to 0.5 mg 3 times a day, adderall has to be discontinued secondary to weight loss, Remeron will be started at 15 mg hs and currently is not homicidal without any suicidal ideation , patient might need to take consultation should she decompensate further 8. Hypertensive cardio vascular disease metoprolol 25 mg twice a day 9. Hyperlipidemia on fenofibrate 145 mg daily 10. Active tobacco dependency 11. Chronic opiate use on oxycodone 10 this needs to be investigated further continue on Lyrica 150 at bedtime 12. Anorexia cachexia malignancy and anxiety related most likely, stop adderall , start on Remeron 15 mg at bedtime 13. gI prophylaxis 14. DVT prophylaxis 15. prognsosi guarded CODE STATUS full Discharge plan: To be determined Impression and plan of care have been directed as dictated by the signing physician. Alisa Griffin nurse practitioner acting as scribe for signing physician. Time with Patient: Greater than 30
[2016-11-15 15:31] LABS: Glucose,Whole Blood 125 mg/dL (75-99)
[2016-11-15 15:54] LABS: ABG Base Excess 11.2 mmol/L; ABG HCO3 36 mmol/L (21-25); ABG Oxygen Saturation 99.9 % (94-97); ABG PCO2 55 mmHg (35-45); ABG PH 7.44 (7.35-7.45); ABG PO2 351 mmHg (83-108); ABG TCO2 38 mmol/L (19-24)
--- NOTE | 2016-11-15 16:30 | P.PN ---
Subjective Principal diagnosis: Acute respiratory failure This is a pleasant 71-year-old female patient with a past medical history significant for COPD, chronic respiratory failure on home oxygen, history of lung cancer and status post left lower lobe lobectomy long time ago, presented to the hospital with dyspnea. She was diagnosed with COPD exacerbation as well as CHF exacerbation. She was hypoxic when she presented to the emergency room. The BNP came in to be 12,000. The troponin was mildly elevated which is likely secondary to hypoxemia. The EKG did not show any ischemic changes. I'll follow-up with her today, she is not feeling well I told and she is short of breath even with regular conversation. The prognosis overall seems to be very poor. The CODE STATUS of the patient need to be addressed as well. Objective - Vital Signs Vital signs: Vital Signs Temp 97.5 F L 11/15/16 12:00 Pulse 84 11/15/16 16:12 Resp 20 11/15/16 12:00 BP 125/61 11/15/16 12:00 Pulse Ox 100 11/15/16 12:00 Intake & Output 11/14/16 11/15/16 11/15/16 18:59 06:59 18:59 Intake Total 770 442.016 Output Total 500 2100 500 Balance 270 -1657.984 -500 Weight 41.2 kg 41 kg Intake: IV 40 0.9 NS 40 Intake, IV Titration 50 402.016 Amount Heparin Sodium,Porcine/ 402.016 D5w Pmx 25,000 unit In Dextrose/Water 1 500ml. bag @ 12 UNITS/KG/HR 14. 69 mls/hr IV .Q24H [facility] Rx #:[id number] cefTRIAXone 1,000 mg In 50 Sodium Chloride 0.9% 50 ml @ 100 mls/hr IVPB HS [facility] Rx#:[id number] Oral 720 Output: Urine 500 2100 500 Other: # Voids 1 1 - Constitutional General appearance: Present: mild distress - Respiratory Respiratory: bilateral: diminished - Cardiovascular Rhythm: regular - Labs CBC & Chem 7: 11/13/16 20:04 11/13/16 20:04 Labs: Abnormal Lab Results - Last 24 Hours (Table) 11/15/16 11/15/16 11/15/16 Range/Units 08:09 15:28 15:45 APTT 43.1 H (22.0-30.0) sec ABG pCO2 55 H (35-45) mmHg ABG pO2 351 H (83-108) mmHg ABG HCO3 36 H (21-25) mmol/L ABG Total CO2 38 H (19-24) mmol/L ABG O2 Saturation 99.9 H (94-97) % POC Glucose (mg/dL) 125 H (75-99) mg/dL Assessment and Plan Plan: Assessment #1 acute on chronic respiratory failure #2 CHF exacerbation secondary to diastole dysfunction #3 COPD exacerbation #4 possible recurrence of cancer #5 multiple comorbid conditions Plan #1 continue the current medical treatment #2 from the cardiac vascular standpoint overview, there is no reason for any further cardiac workup
[2016-11-15 18:25] LABS: Glucose,Whole Blood 137 mg/dL (75-99)
[2016-11-15] MEDS: MIRTAZAPINE 15 MG TAB PO SCH (19:45)
[2016-11-15] MEDS: BUDESONIDE 1 MG/2 ML NEBU INHALATION SCH (19:45)
[2016-11-15] MEDS: oxyCODONE-APAP 10-325MG 1 EACH TAB PO PRN (20:55)
--- NOTE | 2016-11-15 21:48 | XR ---
EXAMINATION TYPE: XR KUB portable DATE OF EXAM: 11/15/2016 9:08 PM COMPARISON: NONE HISTORY: Left abdominal pain TECHNIQUE: Supine portable FINDINGS: Nonspecific bowel gas pattern. Visualized lung bases and pleural spaces are unremarkable. IMPRESSION: No definite acute abdominal pelvic process.
--- NOTE | 2016-11-15 21:54 | CT ---
EXAMINATION TYPE: CT brain wo con DATE OF EXAM: 11/15/2016 9:39 PM COMPARISON: NONE HISTORY: Patient poor historian. Patient shows signs of altered mental status. CT DLP: 700.2 mGycm Automated exposure control for dose reduction was used. FINDINGS: There is no acute intracranial hemorrhage, mass effect, or midline shift identified. The ventricles and sulci are within normal limits in size. The globes are intact and the visualized sinuses are george ar. IMPRESSION: No acute intracranial hemorrhage, mass effect, or midline shift is seen.
[2016-11-15] MEDS: SENNOSIDES-DOCUSATE SODIUM 1 EACH TAB PO SCH (21:56)
[2016-11-15 22:01] LABS: ALT 31 U/L (9-52); AST 34 U/L (14-36); Alkaline Phosphatase 65 U/L (38-126); Blood Urea Nitrogen 24 mg/dL (7-17); Calcium 9.6 mg/dL (8.4-10.2); Chloride 86 mmol/L (98-107); Glucose 137 mg/dL (74-99); Non-African American GFR(MDRD) >60 (>60 ml/min/1.73 sqM); Potassium 3.3 mmol/L (3.5-5.1); Sodium 136 mmol/L (137-145); Total Bilirubin 0.8 mg/dL (0.2-1.3); Total Protein 7.1 g/dL (6.3-8.2)
[2016-11-15 22:09] LABS: Anion Gap 7 mmol/L
[2016-11-15 22:19] LABS: Carbon Dioxide 43 mmol/L (22-30)
[2016-11-15] MEDS ORDERED: Potassium Replacement Protocol 1 EACH MISC MISCELLANE PRN (23:33)
[2016-11-16] MEDS: methylPREDNISolone SOD SUCCI 40 MG/ML 1 ML VIAL IV SCH ×4 (00:10→23:47)
[2016-11-16] MEDS: NITROGLYCERIN OINT 1 INCH/GM PACKET TOPICAL SCH ×5 (00:10→23:47)
[2016-11-16] MEDS: POTASSIUM CHLORIDE 20 MEQ, LIDOCAINE 2% INJ 20 MG in SODIUM CHLORIDE 0.9% 100 ML IVPB SCH ×2 (00:10→03:52)
[2016-11-16] MEDS: oxyCODONE-APAP 10-325MG 1 EACH TAB PO PRN ×3 (05:23→23:46)
[2016-11-16 05:42] LABS: CH 29.2; CHCM 31.7; HCT 39.8 % (34.0-46.0); HDW 3.24; HGB 12.7 gm/dL (11.4-16.0); Hypochromasia Slight; MCH 29.5 pg (25.0-35.0); MCHC 31.8 g/dL (31.0-37.0); MCV 92.7 fL (80.0-100.0); Mean Platelet Volume 7.8; RBC 4.29 m/uL (3.80-5.40); WBC 7.3 k/uL (3.8-10.6)
[2016-11-16 06:27] LABS: ALT 32 U/L (9-52); AST 35 U/L (14-36); Alkaline Phosphatase 70 U/L (38-126); Blood Urea Nitrogen 24 mg/dL (7-17); Calcium 9.8 mg/dL (8.4-10.2); Chloride 87 mmol/L (98-107); Glucose 126 mg/dL (74-99); Magnesium 1.5 mg/dL (1.6-2.3); Non-African American GFR(MDRD) >60 (>60 ml/min/1.73 sqM); Phosphorous 3.4 mg/dL (2.5-4.5); Potassium 3.9 mmol/L (3.5-5.1); Sodium 138 mmol/L (137-145); Total Bilirubin 0.6 mg/dL (0.2-1.3); Total Protein 7.4 g/dL (6.3-8.2)
[2016-11-16 06:34] LABS: Anion Gap 10 mmol/L
[2016-11-16 06:38] LABS: Carbon Dioxide 41 mmol/L (22-30)
[2016-11-16] MEDS ORDERED: Magnesium Replacement Protocol 1 EACH MISC MISCELLANE PRN (06:41)
[2016-11-16] MEDS: MAGNESIUM SULFATE-D5W PMX 1 GM in DEXTROSE/WATER 1 100ML.BAG IVPB SCH ×2 (07:12→09:25)
[2016-11-16] MEDS: BUDESONIDE 1 MG/2 ML NEBU INHALATION SCH ×2 (08:11→20:29)
[2016-11-16] MEDS: IPRATROPIUM-ALBUTEROL 3 ML NEB INHALATION SCH ×4 (08:11→20:29)
--- NOTE | 2016-11-16 09:33 | XR ---
EXAMINATION TYPE: XR chest 1V portable DATE OF EXAM: 11/16/2016 6:20 AM COMPARISON: 11/13/2016 HISTORY: Pain TECHNIQUE: Single frontal view of the chest is obtained. FINDINGS: Postsurgical changes noted with hyperinflation compatible COPD. Mild prominence of the lef t hilum. No overt failure or pneumothorax. IMPRESSION: 1. Correlate for COPD. 2. Postsurgical change of mild prominence of the left hilum.
[2016-11-16] MEDS: METOPROLOL TARTRATE 25 MG TAB PO SCH ×2 (09:36→21:06)
[2016-11-16] MEDS: ENOXAPARIN 40 MG/0.4 ML SYRINGE SQ SCH (09:36)
[2016-11-16] MEDS: ASPIRIN 325 MG TAB PO SCH (09:36)
[2016-11-16] MEDS: SENNOSIDES-DOCUSATE SODIUM 1 EACH TAB PO SCH (09:38)
[2016-11-16] MEDS: FENOFIBRATE 160 MG TAB PO SCH (09:38)
[2016-11-16] MEDS: LORazepam 0.5 MG TAB PO SCH ×3 (09:38→21:06)
--- NOTE | 2016-11-16 09:38 | US ---
EXAMINATION TYPE: US kidneys/renal and bladder DATE OF EXAM: 11/16/2016 8:03 AM COMPARISON: CT CLINICAL HISTORY: abdominal pain hematuria microscopic, UTI. UTI, microscopic hematuria EXAM MEASUREMENTS: Right Kidney: 9.2 x 3.3 x 3.1 cm Left Kidney: 9.1 x 4.3 x 3.8 cm Right Kidney: No evidence of hydronephrosis or nephrolithiasis Left Kidney: No evidence of hydronephrosis or nephrolithiasis. Lower pole limited by bowel gas. Bladder: Pt has cath in place IMPRESSION: No acute process.
[2016-11-16] MEDS: NICOTINE 14MG/24HR PATCH TRANSDERM SCH (09:39)
--- NOTE | 2016-11-16 09:42 | P.PN ---
Subjective Principal diagnosis: Acute respiratory failure This is a pleasant 71-year-old female patient with a past medical history significant for COPD, chronic respiratory failure on home oxygen, history of lung cancer and status post left lower lobe lobectomy long time ago, presented to the hospital with dyspnea. She was diagnosed with COPD exacerbation as well as CHF exacerbation. She was hypoxic when she presented to the emergency room. The BNP came in to be 12,000. The troponin was mildly elevated which is likely secondary to hypoxemia. The EKG did not show any ischemic changes. When the patient was seen yesterday she was quite dyspneic and tired and fatigued. She was seen and evaluated by Dr. Sauceda who transferred the patient to the intensive care unit. I'll follow-up with her today, she seems definitely better. The shortness of breath has improved. She is not as confused as yesterday. The chest x-ray continues to show findings consistent with COPD and not CHF. I am going to DC the Lasix IV and start her on Lasix by mouth. Objective - Vital Signs Vital signs: Vital Signs Temp 98.5 F 11/16/16 08:00 Pulse 89 11/16/16 09:00 Resp 34 H 11/16/16 09:00 BP 135/56 11/16/16 09:00 Pulse Ox 100 11/16/16 09:00 Intake & Output 11/15/16 11/16/16 11/16/16 18:59 06:59 18:59 Intake Total 1153.196 130 Output Total 500 1425 70 Balance -500 -271.804 60 Weight 38.1 kg Intake: IV 110 30 0.9 NS 110 30 Intake, IV Titration 563.196 100 Amount Heparin Sodium,Porcine/ 263.196 D5w Pmx 25,000 unit In Dextrose/Water 1 500ml. bag @ 12 UNITS/KG/HR 14. 69 mls/hr IV .Q24H [facility] Rx #:[id number] Magnesium Sulfate-D5w Pmx 100 1 gm In Dextrose/Water 1 100ml.bag @ 100 mls/hr IVPB Q1H [facility] Rx#: [id number] Potassium Chloride 20 meq 200 Lidocaine 2% Inj 20 mg In Sodium Chloride 0.9% 100 ml @ 55.5 mls/hr IVPB Q2HR [facility] Rx#:[id number] cefTRIAXone 1,000 mg In 100 Sodium Chloride 0.9% 50 ml @ 100 mls/hr IVPB HS [facility] Rx#:[id number] Oral 480 Output: Urine 500 1425 70 Other: Voiding Method Indwelling Catheter - Constitutional General appearance: Present: mild distress - Respiratory Respiratory: bilateral: CTA - Cardiovascular Rhythm: regular - Labs CBC & Chem 7: 11/16/16 05:06 11/16/16 05:06 Labs: Abnormal Lab Results - Last 24 Hours (Table) 11/15/16 11/15/16 11/15/16 Range/Units 15:28 15:45 18:23 APTT (22.0-30.0) sec ABG pCO2 55 H (35-45) mmHg ABG pO2 351 H (83-108) mmHg ABG HCO3 36 H (21-25) mmol/L ABG Total CO2 38 H (19-24) mmol/L ABG O2 Saturation 99.9 H (94-97) % Sodium (137-145) mmol/L Potassium (3.5-5.1) mmol/L Chloride (98-107) mmol/L Carbon Dioxide (22-30) mmol/L BUN (7-17) mg/dL Glucose (74-99) mg/dL POC Glucose (mg/dL) 125 H 137 H (75-99) mg/dL Magnesium (1.6-2.3) mg/dL 11/15/16 11/15/16 11/16/16 Range/Units 21:18 22:05 05:06 APTT 36.6 H 76.7 H (22.0-30.0) sec ABG pCO2 (35-45) mmHg ABG pO2 (83-108) mmHg ABG HCO3 (21-25) mmol/L ABG Total CO2 (19-24) mmol/L ABG O2 Saturation (94-97) % Sodium 136 L (137-145) mmol/L Potassium 3.3 L (3.5-5.1) mmol/L Chloride 86 L (98-107) mmol/L Carbon Dioxide 43 H* (22-30) mmol/L BUN 24 H (7-17) mg/dL Glucose 137 H (74-99) mg/dL POC Glucose (mg/dL) (75-99) mg/dL Magnesium (1.6-2.3) mg/dL 11/16/16 Range/Units 05:06 APTT (22.0-30.0) sec ABG pCO2 (35-45) mmHg ABG pO2 (83-108) mmHg ABG HCO3 (21-25) mmol/L ABG Total CO2 (19-24) mmol/L ABG O2 Saturation (94-97) % Sodium (137-145) mmol/L Potassium (3.5-5.1) mmol/L Chloride 87 L (98-107) mmol/L Carbon Dioxide 41 H* (22-30) mmol/L BUN 24 H (7-17) mg/dL Glucose 126 H (74-99) mg/dL POC Glucose (mg/dL) (75-99) mg/dL Magnesium 1.5 L (1.6-2.3) mg/dL Assessment and Plan Plan: Assessment #1 acute on chronic respiratory failure #2 CHF exacerbation secondary to diastole dysfunction #3 COPD exacerbation #4 possible recurrence of cancer #5 multiple comorbid conditions Plan #1 DC the Lasix IV and start the patient on Lasix by mouth #2 from the cardiac vascular standpoint of view the patient can be transferred to the floor.
--- NOTE | 2016-11-16 13:26 | P.PN ---
Subjective Principal diagnosis: Acute on chronic hypoxic respiratory failure secondary to COPD and diastolic congestive heart failure. Severe pulmonary hypertension and anxiety. This is a pleasant 71-year-old female patient follows with Dr. Simmons as her primary care physician. She does have a history of hyperlipidemia, hypertension , osteoarthritis, anxiety, fibromyalgia. She also has severe oxygen dependent chronic obstructive pulmonary disease and follows with Dr. Sauceda in our office for the same. The patient is a 50+ pack per day smoking history as well. The patient had a lung cancer and is status post left lower lobe lobectomy performed by Dr. Mcmahon approximately 20 years ago. She denies any recurrence of cancer. She presented here 11/13/2016 with complaints of left- sided chest pain, shortness of breath and anxiety. She was hyperventilating as well. A urine drug screen was positive for oxycodone, amphetamines and benzodiazepines. A chest x-ray revealed no acute cardiopulmonary process. An echocardiogram revealed evidence of severe pulmonary hypertension with an RVSP of 75 mmHg. Her troponins were borderline at 0.122, 0.149, 0.144. A heparin drip was initiated. Her proBNP level was 12,900. She is receiving Lasix 40 mg IV push every 12 hours. She has preserved left ventricular systolic function with estimated ejection fraction 55-60%. A CT angiogram ruled out pulmonary embolism however there was a noted 2.7 cm spiculated lesion at the periphery/ lateral lower segment of the right upper lobe. Significant emphysema is noted as well. The patient is seen today in consultation on the selective care unit. She is currently awake and alert in no acute distress. Her main complaint today is that of a headache. She denies any worsening shortness of breath, cough or congestion. No chills or night sweats. She has had some recent weight loss and poor appetite. She is maintaining O2 saturations at 100% on 4 L /m per nasal cannula. She's been afebrile. Hemodynamically stable. Patient was reevaluated today on 11/2016, patient spent last evening in the intensive care unit because the 18th was called to see the patient on selective , and she was quite lethargic, and slightly obtunded. ABG was felt to be reasonable, but because of the patient's mental status, she was monitored in the intensive care unit overnight. In the meantime she was kept on diuretics, bronchodilators, and this morning she seems to be doing much better. Breathing a lot easier. And she is more awake and responsive. Her basic metabolic profile showed elevated bicarb of 41, this is relatively normal for the patient considering her underlying severe COPD and hypercapnia. CBC was normal. And her chest x-ray showed no evidence of congestive heart failure, there is slightly prominent left hilum and postsurgical changes. Objective - Vital Signs Vital signs: Vital Signs Temp 98.5 F 11/16/16 12:00 Pulse 74 11/16/16 12:00 Resp 13 11/16/16 12:00 BP 133/53 11/16/16 12:00 Pulse Ox 99 11/16/16 12:00 Intake & Output 11/15/16 11/16/16 11/16/16 18:59 06:59 18:59 Intake Total 1153.196 280 Output Total 500 1425 160 Balance -500 -271.804 120 Weight 38.1 kg 38.1 kg Intake: IV 110 180 0.9 NS 110 180 Intake, IV Titration 563.196 100 Amount Heparin Sodium,Porcine/ 263.196 D5w Pmx 25,000 unit In Dextrose/Water 1 500ml. bag @ 12 UNITS/KG/HR 14. 69 mls/hr IV .Q24H [facility] Rx #:[id number] Magnesium Sulfate-D5w Pmx 100 1 gm In Dextrose/Water 1 100ml.bag @ 100 mls/hr IVPB Q1H [facility] Rx#: [id number] Potassium Chloride 20 meq 200 Lidocaine 2% Inj 20 mg In Sodium Chloride 0.9% 100 ml @ 55.5 mls/hr IVPB Q2HR [facility] Rx#:[id number] cefTRIAXone 1,000 mg In 100 Sodium Chloride 0.9% 50 ml @ 100 mls/hr IVPB HS [facility] Rx#:[id number] Oral 480 Output: Urine 500 1425 160 Other: Voiding Method Indwelling Catheter Indwelling Catheter - Exam GENERAL EXAM: Frail, cachectic. Alert, comfortable in no apparent distress. HEAD: Normocephalic. EYES: Normal reaction of pupils, equal size. NOSE: Clear with pink turbinates. THROAT: No erythema or exudates. NECK: No masses, no JVD. CHEST: No chest wall deformity. LUNGS: Equal air entry with end expiratory wheeze. Diminished throughout.. CVS: S1 and S2 normal with no audible murmurs, regular rhythm. ABDOMEN: No hepatosplenomegaly, normal bowel sounds, no guarding or rigidity. SPINE: No scoliosis or deformity SKIN: No rashes CENTRAL NERVOUS SYSTEM: No focal deficits, tone is normal in all 4 extremities. Extremities: Bipedal edema, resolved. No clubbing, no cyanosis. Peripheral pulses are intact. - Labs CBC & Chem 7: 11/16/16 05:06 11/16/16 05:06 Labs: Abnormal Lab Results - Last 24 Hours (Table) 11/15/16 11/15/16 11/15/16 Range/Units 15:28 15:45 18:23 APTT (22.0-30.0) sec ABG pCO2 55 H (35-45) mmHg ABG pO2 351 H (83-108) mmHg ABG HCO3 36 H (21-25) mmol/L ABG Total CO2 38 H (19-24) mmol/L ABG O2 Saturation 99.9 H (94-97) % Sodium (137-145) mmol/L Potassium (3.5-5.1) mmol/L Chloride (98-107) mmol/L Carbon Dioxide (22-30) mmol/L BUN (7-17) mg/dL Glucose (74-99) mg/dL POC Glucose (mg/dL) 125 H 137 H (75-99) mg/dL Magnesium (1.6-2.3) mg/dL 11/15/16 11/15/16 11/16/16 Range/Units 21:18 22:05 05:06 APTT 36.6 H 76.7 H (22.0-30.0) sec ABG pCO2 (35-45) mmHg ABG pO2 (83-108) mmHg ABG HCO3 (21-25) mmol/L ABG Total CO2 (19-24) mmol/L ABG O2 Saturation (94-97) % Sodium 136 L (137-145) mmol/L Potassium 3.3 L (3.5-5.1) mmol/L Chloride 86 L (98-107) mmol/L Carbon Dioxide 43 H* (22-30) mmol/L BUN 24 H (7-17) mg/dL Glucose 137 H (74-99) mg/dL POC Glucose (mg/dL) (75-99) mg/dL Magnesium (1.6-2.3) mg/dL 11/16/16 Range/Units 05:06 APTT (22.0-30.0) sec ABG pCO2 (35-45) mmHg ABG pO2 (83-108) mmHg ABG HCO3 (21-25) mmol/L ABG Total CO2 (19-24) mmol/L ABG O2 Saturation (94-97) % Sodium (137-145) mmol/L Potassium (3.5-5.1) mmol/L Chloride 87 L (98-107) mmol/L Carbon Dioxide 41 H* (22-30) mmol/L BUN 24 H (7-17) mg/dL Glucose 126 H (74-99) mg/dL POC Glucose (mg/dL) (75-99) mg/dL Magnesium 1.5 L (1.6-2.3) mg/dL Assessment and Plan Plan: #1 Acute on chronic hypoxic respiratory failure, multifactorial, secondary to acute exacerbation of severe oxygen dependent chronic obstructive pulmonary disease, acute exacerbation of diastolic congestive heart failure, , anxiety. And severe pulmonary hypertension. #2 Acute exacerbation of diastolic congestive heart failure. Preserved left ventricular systolic function with estimated ejection fraction 55-60%. #3 Severe pulmonary hypertension, RVSP 75 mmHg. #4 Borderline troponin leak. Being addressed by cardiology #5 Acute exacerbation of severe oxygen dependent chronic obstructive pulmonary disease. Suspect anorexia/cachexia syndrome. #6 Chronic and ongoing tobacco dependence. #7 2.7 cm spiculated lesion at the periphery/lower segment of the right upper lobe in a patient with a previous history of left lower lobe lung cancer status post lobectomy greater than 20 years ago. No chemotherapy or radiation at that time. This will be monitored on outpatient basis, I explained to the patient that I plan to repeat her CT of the chest in 4 months, and if the nodule seems to be increased in size, I would likely recommend radiation only. Patient is not a surgical candidate anymore. #8 History of anxiety. #9 Fibromyalgia. #10 Hypertension. #11 Hyperlipidemia. #12 Osteoarthritis. #13 Urine drug screen positive for oxycodone, benzodiazepines and amphetamines. #14 Urinary tract infection, culture pending. #15 Poor overall functional performance based on the above-mentioned comorbidities. Recommendation: Patient could be transferred back to [facility] today, continue present course of treatment including bronchodilators, cautiously hydrate the patient, and we'll continue to follow. Discussed her condition with her and with her family at bedside. Time with Patient: Less than 30
[2016-11-16] MEDS: FUROSEMIDE 10 MG/ML 4 ML VIAL IV SCH (17:25)
[2016-11-16] MEDS: SODIUM CHLORIDE 0.9% 1,000 ML IV SCH (17:26)
[2016-11-16] MEDS: MIRTAZAPINE 15 MG TAB PO SCH (18:20)
--- NOTE | 2016-11-16 18:41 | P.PN ---
Subjective This is a 70-year-old female one of Dr. Iris Sauceda with a previous medical history significant for chronic obstructive pulmonary disease, history of lung cancer that was diagnosed about 22 years ago status post left lower lobe resection, osteoarthritis, fibromyalgia, cachexia and significant weight loss, major depressive disorder, anxiety disorder with panic attacks, and current tobacco dependency patient stated that she came to the emergency department at [facility] secondary to left-sided chest pain, worsening shortness of breath, dyspnea on exertion, and pleurisy. She also has increasing lower extremity edema worse within the past 3 weeks, patient denies any fever she has some yellow UA screen sputum, patient has had increasing stress. She continues to smoke depending on her stress level, she has home O2 at 3 L is a cannula, patient has a nebulizer however the insurance does not call for nebulized medications, she also has been losing some weight with decreasing appetite In the emergency room, as EKG changes showing inferior lateral ST-T wave changes, chest x-ray did not reveal an acute process, CTA of the chest failed to reveal any pulmonary emboli, there is a spiculated 2.7 cm mass at the periphery L lower segment of the right upper lobe,, dilated central pulmonary arteries suggesting pulmonary arterial hypertension small right and left pleural effusion no pneumothorax third troponin was noted to be elevated, patient was admitted with what was presumed to be CHF exacerbation, consult was made with cardiology and echo cardiogram was requested 11/15: Echocardiogram reveals moderate mitral regurgitation, severe tricuspid regurgitation, severe pulmonary hypertension, borderline concentric left ventricular hypertrophy, EF 55-60%. Cardiology has recommended continuing IV heparin and IV Lasix and she will have workup for coronary artery disease once stabilized. Triglycerides 110, cholesterol 111, LDL 47 and HDL 42. Patient has been evaluated by pulmonary medicine. Solu-Medrol at to 40 mg every 8 hours. Plan for outpatient PET scan. Patient is sleepy today for which Remeron is changed to suppertime. 11/16: Patient was transferred to ICU last night secondary to pulmonary decompensation and mental status changes, ABGs were obtained, CAT scan of the brain was performed, no new intervention needed except for diuretics, bronchodilators, patient is much better this morning with less shortness of breath, Ativan has been decreased, secondary to her hypercapnia, no aspirative events noted, Objective - Vital Signs Vital signs: Vital Signs Temp 98.5 F 11/16/16 17:37 Pulse 85 11/16/16 17:37 Resp 18 11/16/16 17:37 BP 161/73 11/16/16 17:37 Pulse Ox 100 11/16/16 17:37 Intake & Output 11/15/16 11/16/16 11/16/16 18:59 06:59 18:59 Intake Total 1153.196 560 Output Total 500 1425 310 Balance -500 -271.804 250 Weight 38.1 kg 38.1 kg Intake: IV 110 460 0.9 NS 110 460 Intake, IV Titration 563.196 100 Amount Heparin Sodium,Porcine/ 263.196 D5w Pmx 25,000 unit In Dextrose/Water 1 500ml. bag @ 12 UNITS/KG/HR 14. 69 mls/hr IV .Q24H PETRA Rx #:[id number] Magnesium Sulfate-D5w Pmx 100 1 gm In Dextrose/Water 1 100ml.bag @ 100 mls/hr IVPB Q1H PETRA Rx#: [id number] Potassium Chloride 20 meq 200 Lidocaine 2% Inj 20 mg In Sodium Chloride 0.9% 100 ml @ 55.5 mls/hr IVPB Q2HR PETRA Rx#:[id number] cefTRIAXone 1,000 mg In 100 Sodium Chloride 0.9% 50 ml @ 100 mls/hr IVPB HS PETRA Rx#:[id number] Oral 480 Output: Urine 500 1425 310 Other: Voiding Method Indwelling Catheter Indwelling Catheter - Constitutional General appearance: Present: cooperative, no acute distress, thin - EENT Eyes: Present: anicteric sclerae, EOMI, dentition normal, normal appearance ENT: Present: hearing grossly normal, NA/AT, normal oropharynx - Neck Neck: Present: normal ROM - Respiratory Respiratory: bilateral: CTA, negative: diminished, dullness, rales, rhonchi, wheezing - Cardiovascular Rhythm: regular Heart sounds: normal: S1, S2 Abnormal Heart Sounds: Absent: systolic murmur, diastolic murmur, rub, S3 Gallop , S4 Gallop, click, other - Gastrointestinal General gastrointestinal: Present: soft - Integumentary Integumentary: Present: normal, normal turgor - Neurologic Neurologic: Present: CNII-XII intact - Musculoskeletal Musculoskeletal: Present: strength equal bilaterally - Psychiatric Psychiatric: Present: A&O x's 3, appropriate affect, intact judgment & insight - Labs CBC & Chem 7: 11/16/16 05:06 11/16/16 05:06 Labs: Abnormal Lab Results - Last 24 Hours (Table) 11/15/16 11/15/16 11/16/16 Range/Units 21:18 22:05 05:06 APTT 36.6 H 76.7 H (22.0-30.0) sec Sodium 136 L (137-145) mmol/L Potassium 3.3 L (3.5-5.1) mmol/L Chloride 86 L (98-107) mmol/L Carbon Dioxide 43 H* (22-30) mmol/L BUN 24 H (7-17) mg/dL Glucose 137 H (74-99) mg/dL Magnesium (1.6-2.3) mg/dL 11/16/16 Range/Units 05:06 APTT (22.0-30.0) sec Sodium (137-145) mmol/L Potassium (3.5-5.1) mmol/L Chloride 87 L (98-107) mmol/L Carbon Dioxide 41 H* (22-30) mmol/L BUN 24 H (7-17) mg/dL Glucose 126 H (74-99) mg/dL Magnesium 1.5 L (1.6-2.3) mg/dL Microbiology - Last 24 Hours (Table) 11/16/16 00:25 Urine Culture - Preliminary Urine,Catheterized Assessment and Plan Plan: 1. Acute on chronic diastolic heart failure along with new hypercarbic respiratory failure,. Cardiology consult appreciated. Patient is currently on Lasix 40 mg IV twice daily. Echocardiogram as above. Continue Lopressor. oral diuretics will be started soon, minimize Ativan, minimize oxycodone use 2. COPD exacerbation for which patient requires Solu-Medrol nebulized treatments trial and Atrovent, Pulmicort consult will be made with her primary pulmonary doctor Dr. Sauceda, 3. New lung mass noted spiculated lesion right upper lobe 2.7 cm, patient also will be seen consultation by Dr. Sauceda to formally work this up, imaging studies needs to be done to include bone scan and PET/CT 4. Known history of lung cancer diagnosed 22 years ago 5. Severe pulmonary hypertension patient currently would be on IV diuretics, cardiology to address other pulmonary hypertension medications 6. Elevated troponin echocardiogram as mentioned above, nonspecific EKG changes , possibly related to chronic diastolic CHF and severe pulmonary hypertension for acute coronary syndrome cannot be ruled out 7. Recurrent depression and generalized anxiety disorder and currently is on Ativan 1 milligram 3 times a day will be decreased to 0.5 mg 3 times a day, adderall has to be discontinued secondary to weight loss, Remeron will be started at 15 mg dinner and currently is not homicidal without any suicidal ideation, patient might need to take consultation should she decompensate further 8. Hypertensive cardio vascular disease metoprolol 25 mg twice a day 9. Hyperlipidemia on fenofibrate 145 mg daily 10. Active tobacco dependency 11. Chronic opiate use on oxycodone 10 this needs to be investigated further continue on Lyrica 150 at bedtime 12. Anorexia cachexia malignancy and anxiety related most likely, stop adderall , started on Remeron 15 mg at bedtime decrease Ativan to 0.25 mg 3 times a day when necessary 2.5 mg 3 times a day when necessary 13. gI prophylaxis 14. DVT prophylaxis 15. prognsos guarded CODE STATUS full Discharge plan: To be determined
[2016-11-16 23:27] VITALS: RESP 20
[2016-11-17] MEDS ORDERED: MAG HYDROX/AL HYDROX/SIMETH 30 ML CUP PO ONE (02:28)
[2016-11-17] MEDS ORDERED: HYDROmorphone 1 MG/ML 1 ML SYRINGE IVP STA (02:29)
[2016-11-17] MEDS: NITROGLYCERIN OINT 1 INCH/GM PACKET TOPICAL SCH ×2 (06:21→12:57)
[2016-11-17] MEDS: SODIUM CHLORIDE 0.9% 1,000 ML IV SCH (06:23)
[2016-11-17] MEDS: BUDESONIDE 1 MG/2 ML NEBU INHALATION SCH (07:25)
[2016-11-17] MEDS: IPRATROPIUM-ALBUTEROL 3 ML NEB INHALATION SCH ×2 (07:25→11:21)
[2016-11-17 08:18] VITALS: BP 152/86; TEMP 97.8
[2016-11-17] MEDS: LORazepam 0.5 MG TAB PO SCH (08:31)
[2016-11-17] MEDS: methylPREDNISolone SOD SUCCI 40 MG/ML 1 ML VIAL IV SCH (08:32)
[2016-11-17] MEDS: ASPIRIN 325 MG TAB PO SCH (08:33)
[2016-11-17] MEDS: ENOXAPARIN 40 MG/0.4 ML SYRINGE SQ SCH (08:33)
[2016-11-17] MEDS: METOPROLOL TARTRATE 25 MG TAB PO SCH (08:34)
[2016-11-17] MEDS: FENOFIBRATE 160 MG TAB PO SCH (08:34)
[2016-11-17 08:37] LABS: CH 28.7; CHCM 30.3; HCT 40.1 % (34.0-46.0); HDW 3.16; HGB 12.1 gm/dL (11.4-16.0); Hypochromasia Marked; MCH 28.7 pg (25.0-35.0); MCHC 30.1 g/dL (31.0-37.0); MCV 95.5 fL (80.0-100.0); Mean Platelet Volume 8.1; RDW 15.1 % (11.5-15.5); WBC 13.2 k/uL (3.8-10.6)
[2016-11-17 08:50] LABS: ALT 30 U/L (9-52); AST 31 U/L (14-36); Alkaline Phosphatase 64 U/L (38-126); Anion Gap 9 mmol/L; Blood Urea Nitrogen 22 mg/dL (7-17); Calcium 10.1 mg/dL (8.4-10.2); Carbon Dioxide 36 mmol/L (22-30); Chloride 97 mmol/L (98-107); Glucose 109 mg/dL (74-99); Magnesium 2.1 mg/dL (1.6-2.3); Non-African American GFR(MDRD) >60 (>60 ml/min/1.73 sqM); Potassium 3.9 mmol/L (3.5-5.1); Sodium 142 mmol/L (137-145); Total Bilirubin 0.7 mg/dL (0.2-1.3); Total Protein 7.7 g/dL (6.3-8.2)
[2016-11-17] MEDS: oxyCODONE-APAP 10-325MG 1 EACH TAB PO PRN (08:50)
[2016-11-17] MEDS: SENNOSIDES-DOCUSATE SODIUM 1 EACH TAB PO SCH (08:50)
[2016-11-17] MEDS ORDERED: FUROSEMIDE 40 MG TAB PO SCH (09:00)
[2016-11-17 11:37] VITALS: PULSE 84
[2016-11-17] MEDS: NICOTINE 14MG/24HR PATCH TRANSDERM SCH (11:45)
--- NOTE | 2016-11-17 12:47 | P.PN ---
Subjective Acute on chronic hypoxic respiratory failure secondary to COPD and diastolic congestive heart failure. Severe pulmonary hypertension and anxiety. This is a pleasant 71-year-old female patient follows with Dr. Simmons as her primary care physician. She does have a history of hyperlipidemia, hypertension , osteoarthritis, anxiety, fibromyalgia. She also has severe oxygen dependent chronic obstructive pulmonary disease and follows with Dr. Sauceda in our office for the same. The patient is a 50+ pack per day smoking history as well. The patient had a lung cancer and is status post left lower lobe lobectomy performed by Dr. Mcmahon approximately 20 years ago. She denies any recurrence of cancer. She presented here 11/13/2016 with complaints of left- sided chest pain, shortness of breath and anxiety. She was hyperventilating as well. A urine drug screen was positive for oxycodone, amphetamines and benzodiazepines. A chest x-ray revealed no acute cardiopulmonary process. An echocardiogram revealed evidence of severe pulmonary hypertension with an RVSP of 75 mmHg. Her troponins were borderline at 0.122, 0.149, 0.144. A heparin drip was initiated. Her proBNP level was 12,900. She is receiving Lasix 40 mg IV push every 12 hours. She has preserved left ventricular systolic function with estimated ejection fraction 55-60%. A CT angiogram ruled out pulmonary embolism however there was a noted 2.7 cm spiculated lesion at the periphery/ lateral lower segment of the right upper lobe. Significant emphysema is noted as well. The patient is seen today in consultation on the selective care unit. She is currently awake and alert in no acute distress. Her main complaint today is that of a headache. She denies any worsening shortness of breath, cough or congestion. No chills or night sweats. She has had some recent weight loss and poor appetite. She is maintaining O2 saturations at 100% on 4 L /m per nasal cannula. She's been afebrile. Hemodynamically stable. Patient was reevaluated today on 11/16/2016, patient spent last evening in the intensive care unit because the A team was called to see the patient on selective, and she was quite lethargic, and slightly obtunded. ABG was felt to be reasonable, but because of the patient's mental status, she was monitored in the intensive care unit overnight. In the meantime she was kept on diuretics, bronchodilators, and this morning she seems to be doing much better. Breathing a lot easier. And she is more awake and responsive. Her basic metabolic profile showed elevated bicarb of 41, this is relatively normal for the patient considering her underlying severe COPD and hypercapnia. CBC was normal. And her chest x-ray showed no evidence of congestive heart failure, there is slightly prominent left hilum and postsurgical changes. The patient is seen today in follow-up on the regular medical floor. She is more awake and alert and oriented. Her family is at the bedside. She is anxious to go home. She does have a significant amount of anxiety and she feels she would do better at home. She denies any worsening shortness of breath , cough or congestion. He is maintaining good O2 saturations in the high 90s on 2 L/m per nasal cannula. She's been afebrile. Her chest x-ray showed no acute cardiopulmonary process. Objective - Vital Signs Vital signs: Vital Signs Temp 97.8 F 11/17/16 07:00 Pulse 84 11/17/16 11:35 Resp 20 11/17/16 07:00 BP 152/86 11/17/16 07:00 Pulse Ox 96 11/17/16 07:00 Intake & Output 11/16/16 11/17/16 11/17/16 18:59 06:59 18:59 Intake Total 560 1490 Output Total 310 700 Balance 250 790 Weight 38.1 kg 36.5 kg Intake: IV 460 900 0.9 NS 460 Sodium Chloride 0.9% 1, 850 000 ml @ 75 mls/hr IV . [id number] PETRA Rx#:[id number] cefTRIAXone 1,000 mg In 50 Sodium Chloride 0.9% 50 ml @ 100 mls/hr IVPB HS PETRA Rx#:[id number] Intake, IV Titration 100 Amount Magnesium Sulfate-D5w Pmx 100 1 gm In Dextrose/Water 1 100ml.bag @ 100 mls/hr IVPB Q1H PETRA Rx#: [id number] Oral 590 Output: Urine 310 700 Other: Voiding Method Indwelling Catheter Indwelling Catheter Indwelling Catheter - Exam GENERAL EXAM: Cachectic, frail. Alert, comfortable in no apparent distress. HEAD: Normocephalic. EYES: Normal reaction of pupils, equal size. NOSE: Clear with pink turbinates. THROAT: No erythema or exudates. NECK: No masses, no JVD. CHEST: No chest wall deformity. LUNGS: Equal air entry with no crackles, wheeze, rhonchi or dullness. Managed. CVS: S1 and S2 normal with no audible murmurs, regular rhythm. ABDOMEN: No hepatosplenomegaly, normal bowel sounds, no guarding or rigidity. SPINE: Kyphosis SKIN: No rashes CENTRAL NERVOUS SYSTEM: No focal deficits, tone is normal in all 4 extremities. *Midis: There is no peripheral edema. No clubbing, no cyanosis. Arthritic changes noted. Peripheral pulses are intact. - Labs CBC & Chem 7: 11/17/16 07:50 11/17/16 07:50 Labs: Abnormal Lab Results - Last 24 Hours (Table) 11/17/16 11/17/16 Range/Units 07:50 07:50 WBC 13.2 H (3.8-10.6) k/uL MCHC 30.1 L (31.0-37.0) g/dL Chloride 97 L (98-107) mmol/L Carbon Dioxide 36 H (22-30) mmol/L BUN 22 H (7-17) mg/dL Glucose 109 H (74-99) mg/dL Microbiology - Last 24 Hours (Table) 11/16/16 00:25 Urine Culture - Preliminary Urine,Catheterized Assessment and Plan Plan: Impression: #1 Acute on chronic hypoxic respiratory failure, multifactorial, secondary to acute exacerbation of severe oxygen dependent chronic obstructive pulmonary disease, acute exacerbation of diastolic congestive heart failure, chronic and ongoing tobacco dependence, anxiety. #2 Acute exacerbation of diastolic congestive heart failure. Preserved left ventricular systolic function with estimated ejection fraction 55-60%. #3 Severe pulmonary hypertension, RVSP 75 mmHg. #4 Borderline troponin leak. Currently on heparin drip. #5 Acute exacerbation of severe oxygen dependent chronic obstructive pulmonary disease. Suspect anorexia/cachexia syndrome. #6 Chronic and ongoing tobacco dependence. #7 2.7 cm spiculated lesion at the periphery/lower segment of the right upper lobe in a patient with a previous history of left lower lobe lung cancer status post lobectomy greater than 20 years ago. No chemotherapy or radiation at that time. #8 History of anxiety. #9 Fibromyalgia. #10 Hypertension. #11 Hyperlipidemia. #12 Osteoarthritis. #13 Urine drug screen positive for oxycodone, benzodiazepines and amphetamines. #14 Urinary tract infection, culture pending. #15 Poor overall functional performance based on the above-mentioned comorbidities. Plan: The patient was seen and evaluated by Dr. Sauceda. The patient is much more awake and alert today. He is cleared for discharge from the pulmonary standpoint. She is again educated regarding the importance of complete smoking cessation. She could follow-up in our office in 1-2 weeks' time. At that time we'll perform pulmonary function testing to evaluate the severity of her COPD and assure follow-up CT scans of the chest in regards to the spiculated lesion at the right upper lobe. She is however encouraged to call sooner with any pulmonary complaints or other questions or concerns.
[2016-11-17 13:39] VITALS: BMI 13.8
--- NOTE | 2016-11-17 15:04 | P.DS ---
Providers Date of admission: 11/14/16 01:11 Expected date of discharge: 11/17/16 Attending physician: Selena Wiggins Consults: 11/14/16 20:35 Consult Physician Routine Consulting Provider: Armani Sauceda Consult Reason/Comments: copd, spiculated mass Do you want consulting provider notified?: Yes [facility] This is a 70-year-old female one of Dr. Iris Sauceda with a previous medical history significant for chronic obstructive pulmonary disease, history of lung cancer that was diagnosed about 22 years ago status post left lower lobe resection, osteoarthritis, fibromyalgia, cachexia and significant weight loss, major depressive disorder, anxiety disorder with panic attacks, and current tobacco dependency patient stated that she came to the emergency department at [facility] secondary to left-sided chest pain, worsening shortness of breath, dyspnea on exertion, and pleurisy. She also has increasing lower extremity edema worse within the past 3 weeks, patient denies any fever she has some yellow UA screen sputum, patient has had increasing stress. She continues to smoke depending on her stress level, she has home O2 at 3 L is a cannula, patient has a nebulizer however the insurance does not call for nebulized medications, she also has been losing some weight with decreasing appetite In the emergency room, as EKG changes showing inferior lateral ST-T wave changes, chest x-ray did not reveal an acute process, CTA of the chest failed to reveal any pulmonary emboli, there is a spiculated 2.7 cm mass at the periphery L lower segment of the right upper lobe,, dilated central pulmonary arteries suggesting pulmonary arterial hypertension small right and left pleural effusion no pneumothorax third troponin was noted to be elevated, patient was admitted with what was presumed to be CHF exacerbation, consult was made with cardiology and echo cardiogram was requested 11/15: Echocardiogram reveals moderate mitral regurgitation, severe tricuspid regurgitation, severe pulmonary hypertension, borderline concentric left ventricular hypertrophy, EF 55-60%. Cardiology has recommended continuing IV heparin and IV Lasix and she will have workup for coronary artery disease once stabilized. Triglycerides 110, cholesterol 111, LDL 47 and HDL 42. Patient has been evaluated by pulmonary medicine. Solu-Medrol at to 40 mg every 8 hours. Plan for outpatient PET scan. Patient is sleepy today for which Remeron is changed to suppertime. 11/16: Patient was transferred to ICU last night secondary to pulmonary decompensation and mental status changes, ABGs were obtained, CAT scan of the brain was performed, no new intervention needed except for diuretics, bronchodilators, patient is much better this morning with less shortness of breath, Ativan has been decreased, secondary to her hypercapnia, no aspirative events noted, 11/17: Patient states that her breathing is back to her baseline and she is requesting to be discharged home today. Nursing staff state that she had a panic attack this morning that was improved with Xanax and Percocet. Narayanan catheter will be discontinued and patient will be discharged home today in stable condition. Discharge diagnoses: 1. Acute on chronic diastolic heart failure. 2. COPD exacerbation 3. New lung mass noted spiculated lesion right upper lobe 2.7 cm 4. Known history of lung cancer diagnosed 22 years ago 5. Severe pulmonary hypertension 6. Elevated troponin related to chronic diastolic CHF and severe pulmonary hypertension for acute coronary syndrome cannot be ruled out 7. Recurrent depression and generalized anxiety disorder 8. Hypertensive cardio vascular disease 9. Hyperlipidemia 10. Active tobacco dependency 11. Chronic opiate use on oxycodone 10 12. Severe protein calorie malnutrition due to Anorexia, cachexia, malignancy and anxiety 13. Acute metabolic encephalopathy possibly due to medications or hypoxia. Discharge plan: Home without home care. Patient has refused home care Impression and plan of care have been directed as dictated by the signing physician. Alisa Griffin nurse practitioner acting as scribe for signing physician. CC: Dr. Pepe Patient Condition at Discharge: Fair Plan - Discharge Summary New Discharge Prescriptions: Aspirin EC [Ecotrin Low Dose] 81 mg PO DAILY #30 tablet. Budesonide [Pulmicort] 1 mg INHALATION RT-BID #60 nebu Furosemide [Lasix] 40 mg PO DAILY #30 tab LORazepam [Ativan] 0.5 mg PO TID #1 tab Mirtazapine [Remeron] 15 mg PO 1800 #30 tab Nicotine 14Mg/24Hr Patch [Habitrol] 1 patch TRANSDERM DAILY #30 patch predniSONE 0 mg PO DIRECTED #40 tab Discharge Medication List Fenofibrate Nanocrystallized [Fenofibrate] 145 mg PO DAILY 08/27/15 [History] Metoprolol Tartrate 25 mg PO BID 08/27/15 [History] Pregabalin [Lyrica] 150 mg PO HS 08/27/15 [History] oxyCODONE HCL/ACETAMINOPHEN [Oxycodone-Acetaminophen 10-325] 1 tab PO QID PRN [History] Albuterol Inhaler [Ventolin Hfa Inhaler] 2 puff INHALATION RT-QID PRN 11/13/16 [ History] Ergocalciferol [Vitamin D2 (DRISDOL)] 50,000 unit PO MO 11/13/16 [History] Aspirin EC [Ecotrin Low Dose] 81 mg PO DAILY #30 tablet.dr 11/17/16 [Rx] Budesonide [Pulmicort] 1 mg INHALATION RT-BID #60 nebu 11/17/16 [Rx] Furosemide [Lasix] 40 mg PO DAILY #30 tab 11/17/16 [Rx] LORazepam [Ativan] 0.5 mg PO TID #1 tab 11/17/16 [Rx] Mirtazapine [Remeron] 15 mg PO 1800 #30 tab 11/17/16 [Rx] Nicotine 14Mg/24Hr Patch [Habitrol] 1 patch TRANSDERM DAILY #30 patch 11/17/16 [ Rx] predniSONE 0 mg PO DIRECTED #40 tab 11/17/16 [Rx] Follow up Appointment(s)/Referral(s): Armani Sauceda MD [STAFF PHYSICIAN] - 11/21/16 9:00 am Jose Cruz Sexton MD [STAFF PHYSICIAN] - 11/24/16 4:30 pm Heidi Pepe MD [Primary Care Provider] - 1 Week (please call and make appoitnment office did not answer) Patient Instructions/Handouts: Furosemide (By mouth), Lorazepam (By mouth), Prednisone (By mouth), Aspirin (By mouth), Nicotine (Absorbed through the skin) , Mirtazapine (By mouth), Budesonide (By breathing), How to Stop Smoking (DC), COPD (Chronic Obstructive Pulmonary Disease) (DC), Generalized Anxiety Disorder (DC) Activity/Diet/Wound Care/Special Instructions: Activity as tolerated Diet Heart Healthy Discharge Disposition: HOME SELF-CARE
[2016-11-20] MEDS ORDERED: ERGOCALCIFEROL 50,000 UNIT CAP PO SCH (09:00)
== END 2016-11-17 15:13 | disposition home or self-care (01) | DRG 291 ==
LOC: EC 19:29 → 6SEL 11-14 01:11 → 6ICU 11-15 18:13 → 5ONC 11-16 17:04
PROVIDERS: ADMIT Family Medicine; ATTEND Family Medicine
DX: I11.0 Hypertensive heart disease with heart failure (principal); E43 Unspecified severe protein-calorie malnutrition; J96.21 Acute and chronic respiratory failure with hypoxia; G93.41 Metabolic encephalopathy; R64 Cachexia; F33.9 Major depressive disorder, recurrent, unspecified; I24.9 Acute ischemic heart disease, unspecified; J44.1 Chronic obstructive pulmonary disease with (acute) exacerbation; Z68.1 Body mass index [BMI] 19.9 or less, adult; C80.1 Malignant (primary) neoplasm, unspecified; I27.2 Other secondary pulmonary hypertension; I08.1 Rheumatic disorders of both mitral and tricuspid valves; I50.33 Acute on chronic diastolic (congestive) heart failure; E78.5 Hyperlipidemia, unspecified; F41.0 Panic disorder [episodic paroxysmal anxiety]; F41.1 Generalized anxiety disorder; F17.200 Nicotine dependence, unspecified, uncomplicated; M79.7 Fibromyalgia; M19.91 Primary osteoarthritis, unspecified site; Z99.81 Dependence on supplemental oxygen; Z85.118 Personal history of other malignant neoplasm of bronchus and lung; Z90.2 Acquired absence of lung [part of]; Z96.652 Presence of left artificial knee joint; Z79.899 Other long term (current) drug therapy; Z82.49 Family history of ischemic heart disease and other diseases of the circulatory system
CPT/HCPCS: 36415; 36600; 70450; 71010; 71020; 71275; 74000; 76770; 80053; 80061; 80306; 80320; 81001; 82550; 82553; 82805; 83520; 83605; 83690; 83735; 83880; 84100; 84484; 85025; 85027; 85379; 85610; 85730; 87086; 93005; 93306; 94640; 96365; 96367; 96375; 96376; 99285

== ENCOUNTER 2017-03-17 09:36 | Inpatient (IN) | payer MEDICARE, BC ==
[2017-03-17] MEDS ORDERED: SODIUM CHLORIDE 0.9% 1,000 ML IV STA (09:41)
--- NOTE | 2017-03-17 09:52 | ED ---
General Adult HPI - General Stated complaint: unresponsive Time Seen by Provider: 03/17/17 09:36 Source: RN notes reviewed - History of Present Illness Initial comments: This is a 71-year-old female who presents emergency Department because of difficulty breathing when EMS arrived at the scene the patient was in respiratory distress and completely unresponsive patient continued to be unresponsive throughout the transport. There is no family and there is no further history because the patient is unable to give us any. Patient remains unresponsive at this time - Related Data Home Medications Medication Instructions Recorded Confirmed Fenofibrate Nanocrystallized 145 mg PO DAILY 08/27/15 03/17/17 [Fenofibrate] Metoprolol Tartrate 25 mg PO BID 08/27/15 03/17/17 Pregabalin [Lyrica] 75 mg PO BID 08/27/15 03/17/17 oxyCODONE HCL/ACETAMINOPHEN 1 tab PO TID 08/27/15 03/17/17 [Oxycodone-Acetaminophen 10-325] Albuterol Inhaler [Ventolin Hfa 2 puff INHALATION RT-QID PRN 11/13/16 03/17/17 Inhaler] Aspirin/Acetaminophen/Caffeine 2 tab PO BID PRN 03/17/17 03/17/17 [Excedrin Extra Strength Caplet] Bismuth Subsalicylate 262 mg PO BID PRN 03/17/17 03/17/17 [Pepto-Bismol] Calcium Carbonate/Vitamin D3 1 tab PO DAILY 03/17/17 03/17/17 [Calcium 600-Vit D3 400 Tablet] Cyclobenzaprine [Flexeril] 10 mg PO DAILY PRN 03/17/17 03/17/17 Dextroamphetamine/Amphetamine 15 mg PO QAM 03/17/17 03/17/17 [Adderall] Dicyclomine [Bentyl] 10 mg PO QID PRN 03/17/17 03/17/17 Furosemide [Lasix] 20 mg PO DAILY PRN 03/17/17 03/17/17 LORazepam [Ativan] 1 mg PO TID 03/17/17 03/17/17 Tiotropium 18 Mcg/Puff [Spiriva] 1 cap INHALATION RT-DAILY 03/17/17 03/17/17 Previous Rx's Medication Instructions Recorded Aspirin EC [Ecotrin Low Dose] 81 mg PO DAILY #30 tablet. 11/17/16 Allergies Allergy/AdvReac Type Severity Reaction Status Date / Time No Known Allergies Allergy Verified 03/17/17 10:06 Review of Systems ROS Statement: Those systems with pertinent positive or pertinent negative responses have been documented in the HPI. ROS Other: All systems not noted in ROS Statement are negative. Past Medical History Past Medical History: Cancer, COPD, Fibromyalgia, Hyperlipidemia, Hypertension, Musculoskeletal Disorder, Osteoarthritis (OA), Pneumonia History of Any Multi-Drug Resistant Organisms: None Reported Past Surgical History: Adenoidectomy, Joint Replacement, Orthopedic Surgery, Tonsillectomy Additional Past Surgical History / Comment(s): left lower lung removed, left total knee arthroplasty, tonsillectomy and adenoidectomy. Past Psychological History: No Psychological Hx Reported Smoking Status: Current every day smoker Past Alcohol Use History: None Reported Past Drug Use History: None Reported - Past Family History Mother Family Medical History: Cancer Additional Family Medical History / Comment(s): colon CA Father Family Medical History: Vascular Disorder Sister(s) Family Medical History: Cancer, Renal Disease Son(s) Family Medical History: No Reported History General Exam - General Exam Comments Initial Comments: GENERAL: Patient is well-developed and well-nourished. Patient is nontoxic and well- hydrated and is in moderate distress. ENT: Neck is soft and supple. No significant lymphadenopathy is noted. Oropharynx is clear. Moist mucous membranes. Neck has full range of motion without eliciting any pain. Patient has no gag reflex EYES: The sclera were anicteric and conjunctiva were pink and moist. PULMONARY: Patient is taking some occasional breaths and her lungs are clear CARDIOVASCULAR: There is a regular rate and rhythm without any murmurs gallops or rubs. Femoral pulses are equal bilaterally ABDOMEN: Abdomen is nontender. SKIN: Skin is clear with no lesions or rashes and otherwise unremarkable. NEUROLOGIC: Patient is patient is unresponsive LYMPHATICS: No significant lymphadenopathy is noted PSYCHIATRIC: Unable to assess Course Vital Signs 03/17/17 03/17/17 03/17/17 09:38 09:50 10:05 Temperature 96.8 F L 97 F L Pulse Rate 66 66 68 Respiratory 6 L 12 12 Rate Blood Pressure 105/57 104/50 90/51 O2 Sat by Pulse 97 98 99 Oximetry 03/17/17 03/17/17 03/17/17 10:20 10:40 11:08 Temperature Pulse Rate 66 68 66 Respiratory 12 12 Rate Blood Pressure 88/51 104/56 122/44 O2 Sat by Pulse 99 99 Oximetry 03/17/17 03/17/17 03/17/17 11:32 12:08 12:19 Temperature Pulse Rate 71 80 82 Respiratory 12 16 16 Rate Blood Pressure 74/42 76/41 151/65 O2 Sat by Pulse 99 95 98 Oximetry 03/17/17 03/17/17 03/17/17 12:28 12:55 13:00 Temperature Pulse Rate 80 81 82 Respiratory 16 16 16 Rate Blood Pressure 148/50 157/59 131/57 O2 Sat by Pulse 97 97 98 Oximetry 03/17/17 03/17/17 03/17/17 13:30 14:30 14:52 Temperature 97 F L 97.8 F Pulse Rate 82 83 83 Respiratory 15 16 16 Rate Blood Pressure 182/85 189/83 192/75 O2 Sat by Pulse 99 98 98 Oximetry 03/17/17 03/17/17 03/17/17 15:00 15:05 15:10 Temperature 96.8 F L 96.8 F L 96.8 F L Pulse Rate 83 86 86 Respiratory 16 16 16 Rate Blood Pressure 160/77 162/80 168/79 O2 Sat by Pulse 97 Oximetry Procedures - Intubation Time Out Performed: Yes Laryngoscope: Arvizu Size: 3 ET Tube Size: 7 ET Tube Uncuffed: No Tube Secured Location: teeth Tube Placement Confirmation: visualized tube passing through cords, equal breath sounds bilaterally, no breath sounds over epigastrium, confirmation by capnometry Intubation Complications: none - Sepsis Sepsis Focused Exam #1 Time Sepsis Criteria Met: 14:00 Sepsis Focused Exam Date: 03/17/17 Sepsis Focused Exam Time: 15:20 Sepsis Focused Exam Complete: Yes Vital Signs & RN Notes Reviewed: Yes Capillary Refill: None: Fingers, Toes Peripheral Pulses: Normal: Radial (R) Skin Color: Ashen, Cyanotic (Toes and fingers) Respiratory Exam: normal lung sounds Cardiovascular Exam: regular rate Medical Decision Making - Medical Decision Making EKG shows a normal sinus rhythm at 66 bpm TX interval is 140 QRS is 104 Q-T intervals 4:30 QTC is 450 per patient's EKG shows no ST segment elevation or depression or T wave abnormalities are noted. CT of the brain shows no acute abnormality. Chest x-ray shows no acute normalities. Dr. Perales was paged at 12:15. Dr. Piña was consult and came down and saw the patient spoke to family and the family determined that they did not want surgery. She will be admitted to Dr. Cardenas go to the ICU and be comfort care When patient had a CAT scan of the abdomen done in an abscess was seen this was finally found to be the source of infection and the patient was considered to be severely septic at this time - Lab Data Result diagrams: 03/17/17 09:48 03/17/17 11:25 Lab Results 03/17/17 03/17/17 03/17/17 Range/Units 09:48 09:48 09:48 WBC 7.0 (3.8-10.6) k/uL RBC 5.38 (3.80-5.40) m/uL Hgb 15.0 (11.4-16.0) gm/dL Hct 50.8 H (34.0-46.0) % MCV 94.4 (80.0-100.0) fL MCH 27.8 (25.0-35.0) pg MCHC 29.5 L (31.0-37.0) g/dL RDW 18.2 H (11.5-15.5) % Plt Count 250 (150-450) k/uL Neutrophils % (Manual) 63 % Band Neutrophils % 11 % Lymphocytes % (Manual) 11 % Monocytes % (Manual) 14 % Metamyelocytes % 1 % Neutrophils # (Manual) 5.10 (1.3-7.7) k/uL Lymphocytes # (Manual) 0.77 L (1.0-4.8) k/uL Monocytes # (Manual) 0.98 (0-1.0) k/uL Metamyelocytes # (Man) 0.07 H (0) k/uL Nucleated RBCs 0 (0-0) /100 WBC Polychromasia Present Hypochromasia Marked Anisocytosis Slight Macrocytosis Slight PT (9.0-12.0) sec INR (<1.2) APTT (22.0-30.0) sec Sample Site ABG pH (7.35-7.45) ABG pCO2 (35-45) mmHg ABG pO2 (83-108) mmHg ABG HCO3 (21-25) mmol/L ABG Total CO2 (19-24) mmol/L ABG O2 Saturation (94-97) % ABG Base Excess mmol/L FiO2 % Sodium 134 L (137-145) mmol/L Potassium 7.9 H* (3.5-5.1) mmol/L Chloride 94 L (98-107) mmol/L Carbon Dioxide 18 L (22-30) mmol/L Anion Gap 22 mmol/L BUN 58 H (7-17) mg/dL Creatinine 2.81 H (0.52-1.04) mg/dL Est GFR (MDRD) Af Amer 20 (>60 ml/min/1.73 sqM) Est GFR (MDRD) Non-Af 17 (>60 ml/min/1.73 sqM) Glucose <20 L* (74-99) mg/dL POC Glucose (mg/dL) (75-99) mg/dL POC Glu Machine Operator Cane Cutter ID Lactic Ac Sepsis Rflx Plasma Lactic Acid Darrell (0.7-2.0) mmol/L Calcium 8.9 (8.4-10.2) mg/dL Magnesium 2.0 (1.6-2.3) mg/dL Total Bilirubin 2.2 H (0.2-1.3) mg/dL AST 2780 H (14-36) U/L ALT 598 H (9-52) U/L Alkaline Phosphatase 118 (38-126) U/L Ammonia (<30) umol/L Total Creatine Kinase 228 H (30-135) U/L CK-MB (CK-2) 7.8 H* (0.0-2.4) ng/mL CK-MB (CK-2) Rel Index 3.4 Troponin I 0.287 H* (0.000-0.034) ng/mL Total Protein 5.2 L (6.3-8.2) g/dL Albumin 2.6 L (3.5-5.0) g/dL Urine Color Urine Appearance (Clear) Urine pH (5.0-8.0) Ur Specific [place] (1.001-1.035) Urine Protein (Negative) Urine Glucose (UA) (Negative) Urine Ketones (Negative) Urine Blood (Negative) Urine Nitrite (Negative) Urine Bilirubin (Negative) Urine Urobilinogen (<2.0) mg/dL Ur Leukocyte Esterase (Negative) Salicylates mg/dL Urine Opiates Screen (NotDetected) Ur Oxycodone Screen (NotDetected) Urine Methadone Screen (NotDetected) Ur Propoxyphene Screen (NotDetected) Acetaminophen ug/mL Ur Barbiturates Screen (NotDetected) U Tricyclic Antidepress (NotDetected) Ur Phencyclidine Scrn (NotDetected) Ur Amphetamines Screen (NotDetected) U Methamphetamines Scrn (NotDetected) U Benzodiazepines Scrn (NotDetected) Urine Cocaine Screen (NotDetected) U Marijuana (THC) Screen (NotDetected) Blood Type Blood Type Recheck Antibody Screen Transfuse Plasma Spec Expiration Date 03/17/17 03/17/17 03/17/17 Range/Units 09:48 09:48 09:48 WBC (3.8-10.6) k/uL RBC (3.80-5.40) m/uL Hgb (11.4-16.0) gm/dL Hct (34.0-46.0) % MCV (80.0-100.0) fL MCH (25.0-35.0) pg MCHC (31.0-37.0) g/dL RDW (11.5-15.5) % Plt Count (150-450) k/uL Neutrophils % (Manual) % Band Neutrophils % % Lymphocytes % (Manual) % Monocytes % (Manual) % Metamyelocytes % % Neutrophils # (Manual) (1.3-7.7) k/uL Lymphocytes # (Manual) (1.0-4.8) k/uL Monocytes # (Manual) (0-1.0) k/uL Metamyelocytes # (Man) (0) k/uL Nucleated RBCs (0-0) /100 WBC Polychromasia Hypochromasia Anisocytosis Macrocytosis PT 34.8 H (9.0-12.0) sec INR 3.6 H (<1.2) APTT 36.6 H (22.0-30.0) sec Sample Site ABG pH (7.35-7.45) ABG pCO2 (35-45) mmHg ABG pO2 (83-108) mmHg ABG HCO3 (21-25) mmol/L ABG Total CO2 (19-24) mmol/L ABG O2 Saturation (94-97) % ABG Base Excess mmol/L FiO2 % Sodium (137-145) mmol/L Potassium (3.5-5.1) mmol/L Chloride (98-107) mmol/L Carbon Dioxide (22-30) mmol/L Anion Gap mmol/L BUN (7-17) mg/dL Creatinine (0.52-1.04) mg/dL Est GFR (MDRD) Af Amer (>60 ml/min/1.73 sqM) Est GFR (MDRD) Non-Af (>60 ml/min/1.73 sqM) Glucose (74-99) mg/dL POC Glucose (mg/dL) (75-99) mg/dL POC Glu Machine Operator Cane Cutter ID Lactic Ac Sepsis Rflx Plasma Lactic Acid Darrell 10.8 H* (0.7-2.0) mmol/L Calcium (8.4-10.2) mg/dL Magnesium (1.6-2.3) mg/dL Total Bilirubin (0.2-1.3) mg/dL AST (14-36) U/L ALT (9-52) U/L Alkaline Phosphatase (38-126) U/L Ammonia (<30) umol/L Total Creatine Kinase (30-135) U/L CK-MB (CK-2) (0.0-2.4) ng/mL CK-MB (CK-2) Rel Index Troponin I (0.000-0.034) ng/mL Total Protein (6.3-8.2) g/dL Albumin (3.5-5.0) g/dL Urine Color Urine Appearance (Clear) Urine pH (5.0-8.0) Ur Specific [place] (1.001-1.035) Urine Protein (Negative) Urine Glucose (UA) (Negative) Urine Ketones (Negative) Urine Blood (Negative) Urine Nitrite (Negative) Urine Bilirubin (Negative) Urine Urobilinogen (<2.0) mg/dL Ur Leukocyte Esterase (Negative) Salicylates <1.0 mg/dL Urine Opiates Screen (NotDetected) Ur Oxycodone Screen (NotDetected) Urine Methadone Screen (NotDetected) Ur Propoxyphene Screen (NotDetected) Acetaminophen <10.0 ug/mL Ur Barbiturates Screen (NotDetected) U Tricyclic Antidepress (NotDetected) Ur Phencyclidine Scrn (NotDetected) Ur Amphetamines Screen (NotDetected) U Methamphetamines Scrn (NotDetected) U Benzodiazepines Scrn (NotDetected) Urine Cocaine Screen (NotDetected) U Marijuana (THC) Screen (NotDetected) Blood Type Blood Type Recheck Antibody Screen Transfuse Plasma Spec Expiration Date 03/17/17 03/17/17 03/17/17 Range/Units 09:48 09:48 10:08 WBC (3.8-10.6) k/uL RBC (3.80-5.40) m/uL Hgb (11.4-16.0) gm/dL Hct (34.0-46.0) % MCV (80.0-100.0) fL MCH (25.0-35.0) pg MCHC (31.0-37.0) g/dL RDW (11.5-15.5) % Plt Count (150-450) k/uL Neutrophils % (Manual) % Band Neutrophils % % Lymphocytes % (Manual) % Monocytes % (Manual) % Metamyelocytes % % Neutrophils # (Manual) (1.3-7.7) k/uL Lymphocytes # (Manual) (1.0-4.8) k/uL Monocytes # (Manual) (0-1.0) k/uL Metamyelocytes # (Man) (0) k/uL Nucleated RBCs (0-0) /100 WBC Polychromasia Hypochromasia Anisocytosis Macrocytosis PT (9.0-12.0) sec INR (<1.2) APTT (22.0-30.0) sec Sample Site ABG pH (7.35-7.45) ABG pCO2 (35-45) mmHg ABG pO2 (83-108) mmHg ABG HCO3 (21-25) mmol/L ABG Total CO2 (19-24) mmol/L ABG O2 Saturation (94-97) % ABG Base Excess mmol/L FiO2 % Sodium (137-145) mmol/L Potassium (3.5-5.1) mmol/L Chloride (98-107) mmol/L Carbon Dioxide (22-30) mmol/L Anion Gap mmol/L BUN (7-17) mg/dL Creatinine (0.52-1.04) mg/dL Est GFR (MDRD) Af Amer (>60 ml/min/1.73 sqM) Est GFR (MDRD) Non-Af (>60 ml/min/1.73 sqM) Glucose (74-99) mg/dL POC Glucose (mg/dL) (75-99) mg/dL POC Glu Machine Operator Cane Cutter ID Lactic Ac Sepsis Rflx Plasma Lactic Acid Darrell (0.7-2.0) mmol/L Calcium (8.4-10.2) mg/dL Magnesium (1.6-2.3) mg/dL Total Bilirubin (0.2-1.3) mg/dL AST (14-36) U/L ALT (9-52) U/L Alkaline Phosphatase (38-126) U/L Ammonia <9 (<30) umol/L Total Creatine Kinase (30-135) U/L CK-MB (CK-2) (0.0-2.4) ng/mL CK-MB (CK-2) Rel Index Troponin I (0.000-0.034) ng/mL Total Protein (6.3-8.2) g/dL Albumin (3.5-5.0) g/dL Urine Color Yellow Urine Appearance Clear (Clear) Urine pH 5.5 (5.0-8.0) Ur Specific [place] 1.012 (1.001-1.035) Urine Protein Negative (Negative) Urine Glucose (UA) Negative (Negative) Urine Ketones Negative (Negative) Urine Blood Negative (Negative) Urine Nitrite Negative (Negative) Urine Bilirubin Negative (Negative) Urine Urobilinogen <2.0 (<2.0) mg/dL Ur Leukocyte Esterase Negative (Negative) Salicylates mg/dL Urine Opiates Screen (NotDetected) Ur Oxycodone Screen (NotDetected) Urine Methadone Screen (NotDetected) Ur Propoxyphene Screen (NotDetected) Acetaminophen ug/mL Ur Barbiturates Screen (NotDetected) U Tricyclic Antidepress (NotDetected) Ur Phencyclidine Scrn (NotDetected) Ur Amphetamines Screen (NotDetected) U Methamphetamines Scrn (NotDetected) U Benzodiazepines Scrn (NotDetected) Urine Cocaine Screen (NotDetected) U Marijuana (THC) Screen (NotDetected) Blood Type O Positive Blood Type Recheck No Antibody Screen NEGATIVE Transfuse Plasma 03/17/17 Spec Expiration Date 03/20/2017 - 3859 03/17/17 03/17/17 03/17/17 Range/Units 10:08 10:27 11:25 WBC (3.8-10.6) k/uL RBC (3.80-5.40) m/uL Hgb (11.4-16.0) gm/dL Hct (34.0-46.0) % MCV (80.0-100.0) fL MCH (25.0-35.0) pg MCHC (31.0-37.0) g/dL RDW (11.5-15.5) % Plt Count (150-450) k/uL Neutrophils % (Manual) % Band Neutrophils % % Lymphocytes % (Manual) % Monocytes % (Manual) % Metamyelocytes % % Neutrophils # (Manual) (1.3-7.7) k/uL Lymphocytes # (Manual) (1.0-4.8) k/uL Monocytes # (Manual) (0-1.0) k/uL Metamyelocytes # (Man) (0) k/uL Nucleated RBCs (0-0) /100 WBC Polychromasia Hypochromasia Anisocytosis Macrocytosis PT (9.0-12.0) sec INR (<1.2) APTT (22.0-30.0) sec Sample Site RFEM ABG pH 7.26 L (7.35-7.45) ABG pCO2 36 (35-45) mmHg ABG pO2 391 H (83-108) mmHg ABG HCO3 16 L (21-25) mmol/L ABG Total CO2 17 L (19-24) mmol/L ABG O2 Saturation 100.0 H (94-97) % ABG Base Excess -10.1 mmol/L FiO2 100 % Sodium (137-145) mmol/L Potassium 6.6 H* (3.5-5.1) mmol/L Chloride (98-107) mmol/L Carbon Dioxide (22-30) mmol/L Anion Gap mmol/L BUN (7-17) mg/dL Creatinine (0.52-1.04) mg/dL Est GFR (MDRD) Af Amer (>60 ml/min/1.73 sqM) Est GFR (MDRD) Non-Af (>60 ml/min/1.73 sqM) Glucose (74-99) mg/dL POC Glucose (mg/dL) (75-99) mg/dL POC Glu Machine Operator Cane Cutter ID Lactic Ac Sepsis Rflx Plasma Lactic Acid Darrell (0.7-2.0) mmol/L Calcium (8.4-10.2) mg/dL Magnesium (1.6-2.3) mg/dL Total Bilirubin (0.2-1.3) mg/dL AST (14-36) U/L ALT (9-52) U/L Alkaline Phosphatase (38-126) U/L Ammonia (<30) umol/L Total Creatine Kinase (30-135) U/L CK-MB (CK-2) (0.0-2.4) ng/mL CK-MB (CK-2) Rel Index Troponin I (0.000-0.034) ng/mL Total Protein (6.3-8.2) g/dL Albumin (3.5-5.0) g/dL Urine Color Urine Appearance (Clear) Urine pH (5.0-8.0) Ur Specific [place] (1.001-1.035) Urine Protein (Negative) Urine Glucose (UA) (Negative) Urine Ketones (Negative) Urine Blood (Negative) Urine Nitrite (Negative) Urine Bilirubin (Negative) Urine Urobilinogen (<2.0) mg/dL Ur Leukocyte Esterase (Negative) Salicylates mg/dL Urine Opiates Screen Not Detected (NotDetected) Ur Oxycodone Screen Detected H (NotDetected) Urine Methadone Screen Not Detected (NotDetected) Ur Propoxyphene Screen Not Detected (NotDetected) Acetaminophen ug/mL Ur Barbiturates Screen Not Detected (NotDetected) U Tricyclic Antidepress Not Detected (NotDetected) Ur Phencyclidine Scrn Not Detected (NotDetected) Ur Amphetamines Screen Detected H (NotDetected) U Methamphetamines Scrn Not Detected (NotDetected) U Benzodiazepines Scrn Detected H (NotDetected) Urine Cocaine Screen Not Detected (NotDetected) U Marijuana (THC) Screen Not Detected (NotDetected) Blood Type Blood Type Recheck Antibody Screen Transfuse Plasma Spec Expiration Date 09/09/0103/17/17 03/17/17 Range/Units 11:34 12:03 13:25 WBC (3.8-10.6) k/uL RBC (3.80-5.40) m/uL Hgb (11.4-16.0) gm/dL Hct (34.0-46.0) % MCV (80.0-100.0) fL MCH (25.0-35.0) pg MCHC (31.0-37.0) g/dL RDW (11.5-15.5) % Plt Count (150-450) k/uL Neutrophils % (Manual) % Band Neutrophils % % Lymphocytes % (Manual) % Monocytes % (Manual) % Metamyelocytes % % Neutrophils # (Manual) (1.3-7.7) k/uL Lymphocytes # (Manual) (1.0-4.8) k/uL Monocytes # (Manual) (0-1.0) k/uL Metamyelocytes # (Man) (0) k/uL Nucleated RBCs (0-0) /100 WBC Polychromasia Hypochromasia Anisocytosis Macrocytosis PT (9.0-12.0) sec INR (<1.2) APTT (22.0-30.0) sec Sample Site ABG pH (7.35-7.45) ABG pCO2 (35-45) mmHg ABG pO2 (83-108) mmHg ABG HCO3 (21-25) mmol/L ABG Total CO2 (19-24) mmol/L ABG O2 Saturation (94-97) % ABG Base Excess mmol/L FiO2 % Sodium (137-145) mmol/L Potassium (3.5-5.1) mmol/L Chloride (98-107) mmol/L Carbon Dioxide (22-30) mmol/L Anion Gap mmol/L BUN (7-17) mg/dL Creatinine (0.52-1.04) mg/dL Est GFR (MDRD) Af Amer (>60 ml/min/1.73 sqM) Est GFR (MDRD) Non-Af (>60 ml/min/1.73 sqM) Glucose (74-99) mg/dL POC Glucose (mg/dL) 83 27 L (75-99) mg/dL POC Glu Machine Operator Cane Cutter ID Floyd, Shellene Lavere, Alissandra Lactic Ac Sepsis Rflx Y Plasma Lactic Acid Darrell (0.7-2.0) mmol/L Calcium (8.4-10.2) mg/dL Magnesium (1.6-2.3) mg/dL Total Bilirubin (0.2-1.3) mg/dL AST (14-36) U/L ALT (9-52) U/L Alkaline Phosphatase (38-126) U/L Ammonia (<30) umol/L Total Creatine Kinase (30-135) U/L CK-MB (CK-2) (0.0-2.4) ng/mL CK-MB (CK-2) Rel Index Troponin I (0.000-0.034) ng/mL Total Protein (6.3-8.2) g/dL Albumin (3.5-5.0) g/dL Urine Color Urine Appearance (Clear) Urine pH (5.0-8.0) Ur Specific [place] (1.001-1.035) Urine Protein (Negative) Urine Glucose (UA) (Negative) Urine Ketones (Negative) Urine Blood (Negative) Urine Nitrite (Negative) Urine Bilirubin (Negative) Urine Urobilinogen (<2.0) mg/dL Ur Leukocyte Esterase (Negative) Salicylates mg/dL Urine Opiates Screen (NotDetected) Ur Oxycodone Screen (NotDetected) Urine Methadone Screen (NotDetected) Ur Propoxyphene Screen (NotDetected) Acetaminophen ug/mL Ur Barbiturates Screen (NotDetected) U Tricyclic Antidepress (NotDetected) Ur Phencyclidine Scrn (NotDetected) Ur Amphetamines Screen (NotDetected) U Methamphetamines Scrn (NotDetected) U Benzodiazepines Scrn (NotDetected) Urine Cocaine Screen (NotDetected) U Marijuana (THC) Screen (NotDetected) Blood Type Blood Type Recheck Antibody Screen Transfuse Plasma Spec Expiration Date 03/17/17 03/17/17 Range/Units 14:11 15:01 WBC (3.8-10.6) k/uL RBC (3.80-5.40) m/uL Hgb (11.4-16.0) gm/dL Hct (34.0-46.0) % MCV (80.0-100.0) fL MCH (25.0-35.0) pg MCHC (31.0-37.0) g/dL RDW (11.5-15.5) % Plt Count (150-450) k/uL Neutrophils % (Manual) % Band Neutrophils % % Lymphocytes % (Manual) % Monocytes % (Manual) % Metamyelocytes % % Neutrophils # (Manual) (1.3-7.7) k/uL Lymphocytes # (Manual) (1.0-4.8) k/uL Monocytes # (Manual) (0-1.0) k/uL Metamyelocytes # (Man) (0) k/uL Nucleated RBCs (0-0) /100 WBC Polychromasia Hypochromasia Anisocytosis Macrocytosis PT (9.0-12.0) sec INR (<1.2) APTT (22.0-30.0) sec Sample Site ABG pH (7.35-7.45) ABG pCO2 (35-45) mmHg ABG pO2 (83-108) mmHg ABG HCO3 (21-25) mmol/L ABG Total CO2 (19-24) mmol/L ABG O2 Saturation (94-97) % ABG Base Excess mmol/L FiO2 % Sodium (137-145) mmol/L Potassium (3.5-5.1) mmol/L Chloride (98-107) mmol/L Carbon Dioxide (22-30) mmol/L Anion Gap mmol/L BUN (7-17) mg/dL Creatinine (0.52-1.04) mg/dL Est GFR (MDRD) Af Amer (>60 ml/min/1.73 sqM) Est GFR (MDRD) Non-Af (>60 ml/min/1.73 sqM) Glucose (74-99) mg/dL POC Glucose (mg/dL) 23 L 156 H (75-99) mg/dL POC Glu Machine Operator Cane Cutter Araceli Irene Alissandra Lactic Ac Sepsis Rflx Plasma Lactic Acid Darrell (0.7-2.0) mmol/L Calcium (8.4-10.2) mg/dL Magnesium (1.6-2.3) mg/dL Total Bilirubin (0.2-1.3) mg/dL AST (14-36) U/L ALT (9-52) U/L Alkaline Phosphatase (38-126) U/L Ammonia (<30) umol/L Total Creatine Kinase (30-135) U/L CK-MB (CK-2) (0.0-2.4) ng/mL CK-MB (CK-2) Rel Index Troponin I (0.000-0.034) ng/mL Total Protein (6.3-8.2) g/dL Albumin (3.5-5.0) g/dL Urine Color Urine Appearance (Clear) Urine pH (5.0-8.0) Ur Specific [place] (1.001-1.035) Urine Protein (Negative) Urine Glucose (UA) (Negative) Urine Ketones (Negative) Urine Blood (Negative) Urine Nitrite (Negative) Urine Bilirubin (Negative) Urine Urobilinogen (<2.0) mg/dL Ur Leukocyte Esterase (Negative) Salicylates mg/dL Urine Opiates Screen (NotDetected) Ur Oxycodone Screen (NotDetected) Urine Methadone Screen (NotDetected) Ur Propoxyphene Screen (NotDetected) Acetaminophen ug/mL Ur Barbiturates Screen (NotDetected) U Tricyclic Antidepress (NotDetected) Ur Phencyclidine Scrn (NotDetected) Ur Amphetamines Screen (NotDetected) U Methamphetamines Scrn (NotDetected) U Benzodiazepines Scrn (NotDetected) Urine Cocaine Screen (NotDetected) U Marijuana (THC) Screen (NotDetected) Blood Type Blood Type Recheck Antibody Screen Transfuse Plasma Spec Expiration Date Critical Care Time Critical Care Time: Yes Total Critical Care Time: 50 Disposition Clinical Impression: Peritoneal free air, Intra-abdominal abscess, Liver failure, Kidney failure Disposition: ADMITTED IP TO THIS [facility] Time of Disposition: 15:02
[2017-03-17 10:27] LABS: Appearance,Urine Clear (Clear); Bilirubin,Urine Negative (Negative); Glucose,Urine (UA) Negative (Negative); Ketones,Urine Negative (Negative); Leukocyte Esterase,Urine Negative (Negative); Nitrite,Urine Negative (Negative); PH, Urine 5.5 (5.0-8.0); Protein,Urine Negative (Negative); Specific Gravity,Urine 1.012 (1.001-1.035); UA Billing (MACRO vs. MICRO) CHEM; Urobilinogen,Urine <2.0 mg/dL (<2.0)
[2017-03-17 10:35] LABS: INR 3.6 (<1.2); Partial Thromboplastin Time 36.6 sec (22.0-30.0); Prothrombin Time 34.8 sec (9.0-12.0)
[2017-03-17 10:35] LABS: ABG Base Excess -10.1 mmol/L; ABG HCO3 16 mmol/L (21-25); ABG PCO2 36 mmHg (35-45); ABG PH 7.26 (7.35-7.45); ABG PO2 391 mmHg (83-108); ABG TCO2 17 mmol/L (19-24)
--- NOTE | 2017-03-17 10:35 | XR ---
EXAMINATION TYPE: XR chest 1V portable DATE OF EXAM: 03/17/2017 COMPARISON: Chest x-ray November 16, 2016. HISTORY: Unresponsive had to be intubated. TECHNIQUE: Single AP portable frontal supine view of the chest is obtained. FINDINGS: There is new endotracheal tube with tip at carinal level, recommend pulling back 5 to 6 cm . There is new orogastric tube projecting below left hemidiaphragm. There is chronic parenchymal change with left hilar clips redemonstrated. Bilateral hilar prominence suggests underlying pulmonary artery hypertension. There is no suspicious new focal airspace opacity, pleural effusion, or pneumothorax seen bilaterally. Cardiac silhouette size is stable and within nor mal limits with atherosclerotic thoracic aorta. Osseous structures are demineralized. Old right poste rior lateral eighth rib fracture is present. IMPRESSION: 1. New endotracheal tube is at carinal level, recommend pulling back 5 to 6 cm. 2. Chronic changes without suspicious acute pulmonary process.
[2017-03-17 10:36] LABS: ALT 598 U/L (9-52); Alkaline Phosphatase 118 U/L (38-126); Anion Gap 22 mmol/L; Blood Urea Nitrogen 58 mg/dL (7-17); Calcium 8.9 mg/dL (8.4-10.2); Carbon Dioxide 18 mmol/L (22-30); Chloride 94 mmol/L (98-107); Sodium 134 mmol/L (137-145); Total Bilirubin 2.2 mg/dL (0.2-1.3); Total Protein 5.2 g/dL (6.3-8.2)
[2017-03-17 10:41] LABS: Anisocytosis Slight; CH 28.5; CHCM 30.4; HCT 50.8 % (34.0-46.0); HDW 3.12; Hypochromasia Marked; Immature Gran Flag Marked; MCH 27.8 pg (25.0-35.0); MCHC 29.5 g/dL (31.0-37.0); MCV 94.4 fL (80.0-100.0); Macrocytosis Slight; Mean Platelet Volume 11.4; Non-African American GFR(MDRD) 17 (>60 ml/min/1.73 sqM); RBC 5.38 m/uL (3.80-5.40); RDW 18.2 % (11.5-15.5); WBC (Perox) 7.47
[2017-03-17] MEDS: NOREPINEPHRIN 4 MG-0.9% NS PMX 4 MG/250 ML ML IV ONE ×2 (10:51→15:06)
[2017-03-17 11:01] LABS: AST 2780 U/L (14-36)
[2017-03-17 11:03] LABS: Glucose <20 mg/dL (74-99)
[2017-03-17 11:04] LABS: Potassium 7.9 mmol/L (3.5-5.1)
[2017-03-17] MEDS ORDERED: DEXTROSE 50%-WATER 50 ML SYRINGE IVP STA ×3 (11:06→14:14)
[2017-03-17 11:08] LABS: Add Differential Manual Differential
[2017-03-17 11:10] LABS: Band Neutrophils % 11 %; Metamyelocytes % 1 %; Nucleated Red Blood Cells 0 /100 WBC (0-0); Polychromasia Present; Total Cells Counted 100
[2017-03-17 11:12] LABS: Creatine Kinase MB 7.8 ng/mL (0.0-2.4)
[2017-03-17 11:13] LABS: Troponin I 0.287 ng/mL (0.000-0.034)
[2017-03-17] MEDS ORDERED: CALCIUM CHLORIDE 100 MG/ML 10 ML SYRINGE IVP STA (11:15)
[2017-03-17 11:36] LABS: Glucose,Whole Blood 83 mg/dL (75-99)
[2017-03-17] MEDS ORDERED: SODIUM BICARB 8.4% 50 ML SYR (1 MEQ/ML) IV ONE (12:15)
[2017-03-17] MEDS ORDERED: PHYTONADIONE 10 MG in SODIUM CHLORIDE 0.9% 50 ML IVPB STA (12:42)
[2017-03-17 12:45] LABS: Acetaminophen <10.0 ug/mL; Salicylate <1.0 mg/dL
--- NOTE | 2017-03-17 12:48 | CT ---
EXAMINATION TYPE: CT brain wo con DATE OF EXAM: 03/17/2017 HISTORY: Unresponsive. Pain per order. CT DLP: 998.5 mGycm. Automated Exposure Control for Dose Reduction was Utilized. TECHNIQUE: CT scan of the head is performed without contrast. COMPARISON: CT brain November 15, 2016. FINDINGS: There is no acute intracranial hemorrhage or midline shift identified. There is diffuse v entricular and sulcal prominence consistent with diffuse age-related cerebral atrophy. There is low- attenuation in the periventricular white matter consistent with chronic small vessel ischemic change. Retained secretions are seen in the posterior nasopharynx. The globes are intact and the visualized sinuses are clear. IMPRESSION: No acute intracranial hemorrhage or midline shift. There is mild to moderate diffuse ag e-related cerebral atrophy and chronic small vessel ischemic change redemonstrated without significan t change from prior CT is seen.
[2017-03-17] MEDS ORDERED: HYDROCORTISONE SUCCINATE 100 MG/2 ML VIAL IV STA (13:27)
[2017-03-17] MEDS ORDERED: DEXTROSE 5%-0.9% NACL 1,000 ML IV SCH (13:30)
[2017-03-17 13:36] LABS: Glucose,Whole Blood 27 mg/dL (75-99)
[2017-03-17 14:12] LABS: Glucose,Whole Blood 23 mg/dL (75-99)
[2017-03-17] MEDS ORDERED: LEVOFLOXACIN 750MG-D5W PMX 750 MG in DEXTROSE/WATER 1 150ML.BAG IVPB STA (14:14)
[2017-03-17] MEDS ORDERED: PIPERACILLIN-TAZOBACTAM 3.375 GM in DEXTROSE/WATER 1 50ML.BAG IVPB STA (14:15)
[2017-03-17] MEDS ORDERED: DEXTROSE 10% IN WATER 1,000 ML IV ONE (14:15)
[2017-03-17] MEDS ORDERED: metroNIDAZOLE-NS PMX 500 MG in SALINE 1 100ML.BAG IVPB STA (14:16)
--- NOTE | 2017-03-17 14:16 | CT ---
EXAMINATION TYPE: CT abdomen pelvis wo con DATE OF EXAM: 03/17/2017 HISTORY: Pain not further specified, unresponsive and vented CT DLP: 240 mGycm. Automated Exposure Control for Dose Reduction was Utilized. TECHNIQUE: CT scan of the abdomen and pelvis is performed without oral or IV contrast. COMPARISON: CT abdomen July 24, 2012 FINDINGS: Within the limitations of a non-contrast study, the following observations are made. LUNG BASES: There is chronic emphysematous change with bibasilar atelectasis. Moderate right atrial d ilatation is suspected. LIVER/GB: There is new heterogeneous irregular hyperdense appearance of liver, nonspecific finding. G allbladder is dense suggesting sludge or vicarious excretion of contrast. PANCREAS: No significant abnormality is seen. SPLEEN: No significant abnormality is seen. ADRENALS: There is irregular nodular thickening of left adrenal gland redemonstrated. KIDNEYS: No significant abnormality is seen. BOWEL: Evaluation of bowel is suboptimal due to lack of enteric contrast and patient having little in tra-abdominal fat. An orogastric tube is seen in stomach. There is no suspicious small or large bowel dilatation. There is some prominence of fecal material in the right and transverse colon. There is s uspicious fecal material or debris in the right pelvis that I cannot definitively connect to colonic bowel. GENITAL ORGANS: No gross abnormality seen. LYMPH NODES: No greater than 1cm abdominal or pelvic lymph nodes are appreciated. OSSEOUS STRUCTURES: Spine is straightened on sagittal images. There is moderate to severe multilevel spurring and disc space narrowing of the lumbar spine. Underlying levoconvex scoliosis is present. Th ere is multilevel spondylolisthesis. There is moderate joint space loss in both hips. OTHER: There is moderate amount of diffuse abdominal and pelvic ascites. There is pneumoperitoneum suspected as there is air anterior to the stomach near image 37 and smaller foci inferior to this on image 42 which I cannot definitively connect to small bowel loops. Addition al suspicious foci of air are noted superiorly anterior to liver on axial images 12 through 19. There is moderate calcified atherosclerotic change of aorta extending into branch vessels. IMPRESSION: Pneumoperitoneum is seen. There is suspicious fecal debris in the right pelvis in which d eveloping abscess cannot be excluded. There is moderate amount of abdominal and pelvic ascites. New h eterogeneous appearance of liver could reflect developing intrahepatic abscesses, other etiologies ar e not excluded. Case reviewed with ordering ER physician at time of dictation.
--- NOTE | 2017-03-17 14:59 | P.CNPUL ---
History of Present Illness Consult date: 03/17/17 Chief complaint: unresponsive, acute abdomen History of present illness: I was asked to consult immediately on a 71-year-old female patient due to unresponsiveness and marked metabolic derangements. This is a 71-year-old female, known history of advanced COPD, chronic hypoxic respiratory failure, severe pulmonary hypertension with a right-sided failure, along with history of hyperlipidemia, hypertension, fibromyalgia maintained on oral narcotic medication for pain control. She has also chronic constipation This patient arrived to the emergency department unresponsive. She was not responding to any verbal or painful stimulation. Based on that, the patient was immediately intubated and placed on a mechanical ventilator. The initial blood work showed marked derangements. The patient was severely acidotic and lactic acid level was at 10. No significant leukocytosis however the patient had 11% bandemia. She was in acute kidney injury and the creatinine was up to 2.8. Her potassium level was at 6.6. She had an anion gap metabolic acidosis a bicarb level of 18. Liver function tests were markedly abnormal with a LDL of 598 and AST of 2780. Bilirubin was at 2.0. Troponin was at 0.2. The post intubation blood gases showed a pH of 7.26 with a pCO2 of 36 and pO2 of 391. This was done while the patient being an assist-control of 12, tidal volume 400 , FiO2 of 100% and PEEP of 5. CAT scan of the brain showed no acute intracranial process. There was mild to moderate diffuse age-related atrophy. Upon further evaluation, the patient was found to have some distended abdomen. Based on that a CAT scan of the abdomen was done that showed evidence of pneumoperitoneum. There was suspicious fecal debris's and the right pelvis in which there was a developing collection, probably an abscess. There was moderate amount of abdominal and pelvic ascites. The liver showed some new heterogeneous lesions probably abscesses. The patient was immediately given accommodation Zosyn and Levaquin and surgical consultation was requested. Meanwhile, the patient was noted to have abnormalities in the correlation profile and she will be given fresh frozen plasma. She was having episodes of hypoglycemia for which she was given D50 and placed on D5 water and later on she continued to have the same episodes of hypoglycemia for which she was placed on D10 at the rate of 100 mL an hour. Post intubation she was also found to be hypotensive currently on 10 mics of levo fed a triple lumen cath was also inserted in his right IJ. Surgical consultation is pending at this point. Discussed the findings with her son and grandson at the bedside. Review of Systems ROS unobtainable: due to endotracheal tube Past Medical History Past Medical History: Cancer, COPD, Fibromyalgia, Hyperlipidemia, Hypertension, Musculoskeletal Disorder, Osteoarthritis (OA), Pneumonia Additional Past Medical History / Comment(s): COPD, chronic hypoxic respiratory failure, lung cancer with previous lung surgery till in 2 years ago, severe pulmonary hypertension evidence of right-sided heart failure, fibromyalgia, osteoarthritis, chronic pain, chronic constipation, questionable sedated lesion in the right lung measuring 2.7 cm in size and it was found during her most hospitalization, hyperlipidemia, cachexia and severe malnourishment, chronic COPD, remote history of lung cancer, CHF with a right-sided heart failure and severe pulmonary hypertension, hyperlipidemia, hypertension, fibromyalgia, osteoarthritis, chronic constipatio pain killer dependence. History of Any Multi-Drug Resistant Organisms: None Reported Past Surgical History: Adenoidectomy, Joint Replacement, Orthopedic Surgery, Tonsillectomy Additional Past Surgical History / Comment(s): left lower lung removed, left total knee arthroplasty, tonsillectomy and adenoidectomy. Past Psychological History: No Psychological Hx Reported Smoking Status: Current every day smoker Past Alcohol Use History: None Reported Past Drug Use History: None Reported - Past Family History Mother Family Medical History: Cancer Additional Family Medical History / Comment(s): colon CA Father Family Medical History: Vascular Disorder Sister(s) Family Medical History: Cancer, Renal Disease Son(s) Family Medical History: No Reported History Medications and Allergies Home Medications Medication Instructions Recorded Confirmed Type Fenofibrate Nanocrystallized 145 mg PO DAILY 08/27/15 03/17/17 History [Fenofibrate] Metoprolol Tartrate 25 mg PO BID 08/27/15 03/17/17 History Pregabalin [Lyrica] 75 mg PO BID 08/27/15 03/17/17 History oxyCODONE HCL/ACETAMINOPHEN 1 tab PO TID 08/27/15 03/17/17 History [Oxycodone-Acetaminophen 10-325] Albuterol Inhaler [Ventolin Hfa 2 puff INHALATION RT-QID PRN 11/13/16 03/17/17 History Inhaler] Aspirin EC [Ecotrin Low Dose] 81 mg PO DAILY #30 tablet.dr 11/17/16 03/17/17 Rx Aspirin/Acetaminophen/Caffeine 2 tab PO BID PRN 03/17/17 03/17/17 History [Excedrin Extra Strength Caplet] Bismuth Subsalicylate 262 mg PO BID PRN 03/17/17 03/17/17 History [Pepto-Bismol] Calcium Carbonate/Vitamin D3 1 tab PO DAILY 03/17/17 03/17/17 History [Calcium 600-Vit D3 400 Tablet] Cyclobenzaprine [Flexeril] 10 mg PO DAILY PRN 03/17/17 03/17/17 History Dextroamphetamine/Amphetamine 15 mg PO QAM 03/17/17 03/17/17 History [Adderall] Dicyclomine [Bentyl] 10 mg PO QID PRN 03/17/17 03/17/17 History Furosemide [Lasix] 20 mg PO DAILY PRN 03/17/17 03/17/17 History LORazepam [Ativan] 1 mg PO TID 03/17/17 03/17/17 History Tiotropium 18 Mcg/Puff [Spiriva] 1 cap INHALATION RT-DAILY 03/17/17 03/17/17 History Allergies Allergy/AdvReac Type Severity Reaction Status Date / Time No Known Allergies Allergy Verified 03/17/17 10:06 Physical Exam Vitals: Vital Signs Temp Pulse Resp BP Pulse Ox 03/17/17 13:30 97 F L 82 15 182/85 99 03/17/17 13:00 82 16 131/57 98 03/17/17 12:55 81 16 157/59 97 03/17/17 12:28 80 16 148/50 97 03/17/17 12:19 82 16 151/65 98 03/17/17 12:08 80 16 76/41 95 03/17/17 11:32 71 12 74/42 99 03/17/17 11:08 66 12 122/44 99 03/17/17 10:40 68 104/56 03/17/17 10:20 66 12 88/51 99 03/17/17 10:05 68 12 90/51 99 03/17/17 09:50 97 F L 66 12 104/50 98 03/17/17 09:38 96.8 F L 66 6 L 105/57 97 Intake and Output 0903/17/17 03/17/17 22:59 06:59 14:59 Intake Total 152.812 Output Total 150 Balance 2.812 Intake: Intake, IV Titration 152.812 Amount Norepinephrin 4 mg-0.9% 152.812 Ns Pmx 4 mg In 250 ml @ Titrate IV .Q0M ONE Rx#: [id number] Output: Urine 150 Uretheral (Narayanan) 150 Other: Weight 45.359 kg Patient Weight 03/18/17 06:59 Weight 45.359 kg Cachectic, thin frail female patient, unresponsive on a mechanical ventilator, currently is an assist-control mode of ventilation. She is pale and she has been completely unresponsive. At times she may withdraw to deep painful stimuli.Head exam was generally normal. There was no scleral icterus or corneal arcus. Mucous membranes were moist. Neck is positive for JVD there is a little neck masses at this point. Mucous membranes are dry. Lung sounds are diminished bilaterally otherwise no wheezes or rhonchi any crackles. Heart sounds are positive S1-S2 and there is accentuation of the second heart sound. No significant murmurs appreciated. Abdomen is slightly distended. The abdomen is firm. No direct tenderness that can be elicited. No rebound tenderness or guarding. The patient has absent bowel sounds. Extremities show diminished pulses bilaterally in the patient's condition is mottled and pulses are very much diminished and feet are cold. No cyanosis or clubbing. Neurologically unresponsive to verbal and painful stimuli. Pupils around 3-4 mm in size and they're sluggish and reactive to light. Results - Laboratory Findings CBC and BMP: 03/17/17 09:48 03/17/17 11:25 ABG ABG pH 7.26 (7.35-7.45) L 03/17/17 10:27 ABG pCO2 36 mmHg (35-45) 03/17/17 10:27 ABG pO2 391 mmHg (83-108) H 03/17/17 10:27 ABG O2 Saturation 100.0 % (94-97) H 03/17/17 10:27 PT/INR, D-dimer PT 34.8 sec (9.0-12.0) H 03/17/17 09:48 INR 3.6 (<1.2) H 03/17/17 09:48 Abnormal lab findings: Abnormal Labs 03/17/17 03/17/17 03/17/17 09:48 09:48 09:48 Hct 50.8 H MCHC 29.5 L RDW 18.2 H Lymphocytes # (Manual) 0.77 L Metamyelocytes # (Man) 0.07 H PT INR APTT ABG pH ABG pO2 ABG HCO3 ABG Total CO2 ABG O2 Saturation Sodium 134 L Potassium 7.9 H* Chloride 94 L Carbon Dioxide 18 L BUN 58 H Creatinine 2.81 H Glucose <20 L* POC Glucose (mg/dL) Plasma Lactic Acid Darrell Total Bilirubin 2.2 H AST 2780 H ALT 598 H Total Creatine Kinase 228 H CK-MB (CK-2) 7.8 H* Troponin I 0.287 H* Total Protein 5.2 L Albumin 2.6 L Ur Oxycodone Screen Ur Amphetamines Screen U Benzodiazepines Scrn 03/17/17 03/17/17 03/17/17 09:48 09:48 10:08 Hct MCHC RDW Lymphocytes # (Manual) Metamyelocytes # (Man) PT 34.8 H INR 3.6 H APTT 36.6 H ABG pH ABG pO2 ABG HCO3 ABG Total CO2 ABG O2 Saturation Sodium Potassium Chloride Carbon Dioxide BUN Creatinine Glucose POC Glucose (mg/dL) Plasma Lactic Acid Darrell 10.8 H* Total Bilirubin AST ALT Total Creatine Kinase CK-MB (CK-2) Troponin I Total Protein Albumin Ur Oxycodone Screen Detected H Ur Amphetamines Screen Detected H U Benzodiazepines Scrn Detected H 03/17/17 03/17/17 03/17/17 10:27 11:25 13:25 Hct MCHC RDW Lymphocytes # (Manual) Metamyelocytes # (Man) PT INR APTT ABG pH 7.26 L ABG pO2 391 H ABG HCO3 16 L ABG Total CO2 17 L ABG O2 Saturation 100.0 H Sodium Potassium 6.6 H* Chloride Carbon Dioxide BUN Creatinine Glucose POC Glucose (mg/dL) 27 L Plasma Lactic Acid Darrell Total Bilirubin AST ALT Total Creatine Kinase CK-MB (CK-2) Troponin I Total Protein Albumin Ur Oxycodone Screen Ur Amphetamines Screen U Benzodiazepines Scrn 03/17/17 14:11 Hct MCHC RDW Lymphocytes # (Manual) Metamyelocytes # (Man) PT INR APTT ABG pH ABG pO2 ABG HCO3 ABG Total CO2 ABG O2 Saturation Sodium Potassium Chloride Carbon Dioxide BUN Creatinine Glucose POC Glucose (mg/dL) 23 L Plasma Lactic Acid Darrell Total Bilirubin AST ALT Total Creatine Kinase CK-MB (CK-2) Troponin I Total Protein Albumin Ur Oxycodone Screen Ur Amphetamines Screen U Benzodiazepines Scrn - Diagnostic Findings Chest x-ray: image reviewed Assessment and Plan Plan: Assessment 1 acute abdomen/pneumoperitoneum with secondary shock and multisystem organ failure. 2 acute respiratory failure secondary to above 3 acute kidney injury secondary to above. 4 acute liver failure with underlying coagulopathy, hypoglycemia, disturbed LFTs 5 acute hyperkalemia 6 hypertension/shock secondary to above currently pressor dependent 7 advanced COPD 8 chronic hypoxic respiratory failure 9 history of lung cancer with recently found right lung is dictated lesion that is supposed to be followed up on outpatient basis 10 fibromyalgia 11 hypertension 12 severe pulmonary hypertension with signs of right-sided heart failure 13 hyperlipidemia 14 smoker 15 chronic opiate dependence maintained on oxycodone 16 severe protein calorie malnourishment/cachexia Plan This is a very high mortality case. Surgical consultation has been requested. The surgery is done or not the patient carries a very high risk of and this approach is almost 99-100%. This has been ordered the discussed with the family. Awaiting a surgical consultation. Continue antibiotics. Continue fluid resuscitation. Put the patient D10 at the rate of 100 mL an hour. Discussed the case with the primary care. Discussed the case with general surgery over the phone and she would be related by Dr. Piña. Discussed the case with Dr. Nigel Salter. This is a critically ill female patient and based on her medical problems and comorbidities and current state of disease severity she stands no chance of recovery. Awaiting further recommendations from surgery. Would proceed with comfort care measures if no surgery is being contemplated.
[2017-03-17 15:03] LABS: Glucose,Whole Blood 156 mg/dL (75-99)
[2017-03-17] MEDS ORDERED: NALOXONE 0.4 MG/ML 1 ML VIAL IV PRN (15:05)
--- NOTE | 2017-03-17 15:05 | P.PN ---
Progress Note - Text Please see full dictated report. I was asked to see the patient emergently in the ER as she came in unresponsive. Her 2 sons are at bedside who reports at least more than 12 hours with the patient being unresponsive. One of her sons was able to speak to her just yesterday. Patient has baseline severe COPD including multiple comorbidities. The patient has been intubated and currently has orogastric tube. Diagnostic studies were reviewed in detail. Findings included moderate ascites including retained fecal matter of the cecum and some few small areas of pneumoperitoneum is identified as I personally reviewed her studies. Patient presents with multisystem organ failure including unresponsive, kidney failure, coagulopathic, hyperkalemic, liver failure, respiratory failure and are requiring pressors. With these findings, I had a detailed discussion with the patient's family including high chance of immediate mortality upon attempting surgery. As a result, comfort care was described as an option. The patient's family were encouraged to be at bedside along with her as they are awaiting their father's presence and final decision.
[2017-03-17] MEDS ORDERED: NOREPINEPHRIN 16 MG-0.9%NS PMX 16 MG/250 ML ML IV SCH (15:30)
--- NOTE | 2017-03-17 15:45 | P.PN ---
Progress Note - Text Patient's had arrived. She has additional nephews and sons who also arrived. I had a family discussion over 45 minutes regarding options and course of care. As patient presented in multisystem organ failure including baseline COPD and baseline multiple comorbidities chance of mortality extremely high with any potential surgery. As a result, family has agreed to not proceed with surgery. They are evaluating between Comfort Care including hospice care. Discussion and decision plan was also conveyed to the emergency room team.
[2017-03-17 16:05] LABS: Glucose,Whole Blood 176 mg/dL (75-99)
--- NOTE | 2017-03-17 16:12 | P.HPIM ---
History of Present Illness H&P Date: 03/17/17 Chief Complaint: respiratory failure/perforated viscus This is a 71-year-old female one of with a previous medical history significant for advanced COPD, chronic hypoxic respiratory failure, severe pulmonary hypertension with a right-sided failure, along with history of hyperlipidemia, hypertension and hypertensive cardio vascular disease, fibromyalgia maintained on oral narcotic medication for pain control, once patient chronic constipation, apparently the patient was found by a family member unresponsive patient was brought into the emergency department at [facility],this patient arrived to the emergency department unresponsive. She was not responding to any verbal or painful stimulation. Based on that, the patient was immediately intubated and placed on a mechanical ventilator. The initial blood work showed marked derangements. The patient was severely acidotic and lactic acid level was at 10. No significant leukocytosis however the patient had 11% bandemia. She was in acute kidney injury and the creatinine was up to 2.8. Her potassium level was at 6.6. She had an anion gap metabolic acidosis a bicarb level of 18. Liver function tests were markedly abnormal with a LDL of 598 and AST of 2780. Bilirubin was at 2.0. Troponin was at 0.2. The post intubation blood gases showed a pH of 7.26 with a pCO2 of 36 and pO2 of 391. This was done while the patient being an assist-control of 12, tidal volume 400, FiO2 of 100% and PEEP of 5. CAT scan of the brain showed no acute intracranial process. There was mild to moderate diffuse age-related atrophy. Upon further evaluation, the patient was found to have some distended abdomen. Based on that a CAT scan of the abdomen was done that showed evidence of pneumoperitoneum. There was suspicious fecal debris's and the right pelvis in which there was a developing collection, probably an abscess. There was moderate amount of abdominal and pelvic ascites. The liver showed some new heterogeneous lesions probably abscesses. The patient was immediately given accommodation Zosyn and Levaquin and surgical consultation was requested. Meanwhile, the patient was noted to have abnormalities in the correlation profile and she will be given fresh frozen plasma. She was having episodes of hypoglycemia for which she was given D50 and placed on D5 water and later on she continued to have the same episodes of hypoglycemia for which she was placed on D10 at the rate of 100 mL an hour. Post intubation she was also found to be hypotensive currently on 10 mics of levophed a triple lumen cath was also inserted in his right IJ. Surgical consultation is pending at this point family elected not to go for any surgical intervention, they are aware that the is imminent. Review of Systems ROS unobtainable: due to endotracheal tube, due to mental status (was not able to be obtained because of the patient mental status changes as well as endotracheal intubation.) Past Medical History Past Medical History: Cancer, COPD, Fibromyalgia, Hyperlipidemia, Hypertension, Musculoskeletal Disorder, Osteoarthritis (OA), Pneumonia Additional Past Medical History / Comment(s): COPD, chronic hypoxic respiratory failure, lung cancer with previous lung surgery till in 2 years ago, severe pulmonary hypertension evidence of right-sided heart failure, fibromyalgia, osteoarthritis, chronic pain, chronic constipation, questionable sedated lesion in the right lung measuring 2.7 cm in size and it was found during her most hospitalization, hyperlipidemia, cachexia and severe malnourishment, chronic COPD, remote history of lung cancer, CHF with a right-sided heart failure and severe pulmonary hypertension, hyperlipidemia, hypertension, fibromyalgia, osteoarthritis, chronic constipatio pain killer dependence. History of Any Multi-Drug Resistant Organisms: None Reported Past Surgical History: Adenoidectomy, Joint Replacement, Orthopedic Surgery, Tonsillectomy Additional Past Surgical History / Comment(s): left lower lung removed, left total knee arthroplasty, tonsillectomy and adenoidectomy. Past Psychological History: No Psychological Hx Reported Smoking Status: Current every day smoker Past Alcohol Use History: None Reported Past Drug Use History: None Reported - Past Family History Mother Family Medical History: Cancer Additional Family Medical History / Comment(s): colon CA Father Family Medical History: Vascular Disorder Sister(s) Family Medical History: Cancer, Renal Disease Son(s) Family Medical History: No Reported History Medications and Allergies Home Medications Medication Instructions Recorded Confirmed Type Fenofibrate Nanocrystallized 145 mg PO DAILY 08/27/15 03/17/17 History [Fenofibrate] Metoprolol Tartrate 25 mg PO BID 08/27/15 03/17/17 History Pregabalin [Lyrica] 75 mg PO BID 08/27/15 03/17/17 History oxyCODONE HCL/ACETAMINOPHEN 1 tab PO TID 08/27/15 03/17/17 History [Oxycodone-Acetaminophen 10-325] Albuterol Inhaler [Ventolin Hfa 2 puff INHALATION RT-QID PRN 11/13/16 03/17/17 History Inhaler] Aspirin EC [Ecotrin Low Dose] 81 mg PO DAILY #30 tablet. 11/17/16 03/17/17 Rx Aspirin/Acetaminophen/Caffeine 2 tab PO BID PRN 03/17/17 03/17/17 History [Excedrin Extra Strength Caplet] Bismuth Subsalicylate 262 mg PO BID PRN 03/17/17 03/17/17 History [Pepto-Bismol] Calcium Carbonate/Vitamin D3 1 tab PO DAILY 03/17/17 03/17/17 History [Calcium 600-Vit D3 400 Tablet] Cyclobenzaprine [Flexeril] 10 mg PO DAILY PRN 03/17/17 03/17/17 History Dextroamphetamine/Amphetamine 15 mg PO QAM 03/17/17 03/17/17 History [Adderall] Dicyclomine [Bentyl] 10 mg PO QID PRN 03/17/17 03/17/17 History Furosemide [Lasix] 20 mg PO DAILY PRN 03/17/17 03/17/17 History LORazepam [Ativan] 1 mg PO TID 03/17/17 03/17/17 History Tiotropium 18 Mcg/Puff [Spiriva] 1 cap INHALATION RT-DAILY 03/17/17 03/17/17 History Allergies Allergy/AdvReac Type Severity Reaction Status Date / Time No Known Allergies Allergy Verified 03/17/17 10:06 Physical Exam Vitals: Vital Signs Temp Pulse Resp BP Pulse Ox 03/17/17 15:34 97 F L 83 15 169/73 03/17/17 15:27 96.9 F L 83 16 169/73 97 03/17/17 15:10 96.8 F L 86 16 168/79 03/17/17 15:05 96.8 F L 86 16 162/80 03/17/17 15:00 96.8 F L 83 16 160/77 97 03/17/17 14:52 97.8 F 83 16 192/75 98 03/17/17 14:30 83 16 189/83 98 03/17/17 13:30 97 F L 82 15 182/85 99 03/17/17 13:00 82 16 131/57 98 03/17/17 12:55 81 16 157/59 97 03/17/17 12:28 80 16 148/50 97 03/17/17 12:19 82 16 151/65 98 03/17/17 12:08 80 16 76/41 95 03/17/17 11:32 71 12 74/42 99 03/17/17 11:08 66 12 122/44 99 03/17/17 10:40 68 104/56 03/17/17 10:20 66 12 88/51 99 03/17/17 10:05 68 12 90/51 99 03/17/17 09:50 97 F L 66 12 104/50 98 03/17/17 09:38 96.8 F L 66 6 L 105/57 97 Intake and Output 03/17/17 03/17/17 03/17/17 06:59 14:59 22:59 Intake Total 227.812 11.25 Output Total 245 115 Balance -17.188 -103.75 Intake: Intake, IV Titration 227.812 11.25 Amount Norepinephrin 4 mg-0.9% 227.812 11.25 Ns Pmx 4 mg In 250 ml @ Titrate IV .Q0M ONE Rx#: [id number] Blood Product 0 Ffp 24 Cp2d Unit 0 [id number] Output: Gastric Drainage 100 Urine 245 15 Uretheral (Narayanan) 150 Other: Weight 45.359 kg Patient Weight 03/18/17 06:59 Weight 45.359 kg - Constitutional General appearance: thin - EENT Eyes: abnormal pupil (patient is currently intubated and her pupils were not reactive to light.) ENT: other (ET tube in place and orogastric tube in place.) - Neck Neck: no lymphadenopathy, normal ROM, no rigidity Carotids: bilateral: upstroke delayed Thyroid: bilateral: normal size - Respiratory Respiratory: bilateral: diminished, dullness, rales, rhonchi, wheezing, prolonged expiration - Cardiovascular Rhythm: regular Heart sounds: normal: S1, S2 Abnormal Heart Sounds: systolic murmur, no S3 Gallop, no S4 Gallop, click - Gastrointestinal General gastrointestinal: normal bowel sounds, tenderness (significant tenderness to her abdomen with minimal guarding.), no umbilical hernia, no ventral hernia - Integumentary Integumentary: decreased turgor, pale - Psychiatric Psychiatric: no A&O x's 3, no appropriate affect, no intact judgment & insight Results CBC & Chem 7: 03/17/17 09:48 03/17/17 11:25 Labs: Abnormal Lab Results - Last 24 Hours (Table) 03/17/17 03/17/17 03/17/17 Range/Units 09:48 09:48 09:48 Hct 50.8 H (34.0-46.0) % MCHC 29.5 L (31.0-37.0) g/dL RDW 18.2 H (11.5-15.5) % Lymphocytes # (Manual) 0.77 L (1.0-4.8) k/uL Metamyelocytes # (Man) 0.07 H (0) k/uL PT (9.0-12.0) sec INR (<1.2) APTT (22.0-30.0) sec ABG pH (7.35-7.45) ABG pO2 (83-108) mmHg ABG HCO3 (21-25) mmol/L ABG Total CO2 (19-24) mmol/L ABG O2 Saturation (94-97) % Sodium 134 L (137-145) mmol/L Potassium 7.9 H* (3.5-5.1) mmol/L Chloride 94 L (98-107) mmol/L Carbon Dioxide 18 L (22-30) mmol/L BUN 58 H (7-17) mg/dL Creatinine 2.81 H (0.52-1.04) mg/dL Glucose <20 L* (74-99) mg/dL POC Glucose (mg/dL) (75-99) mg/dL Plasma Lactic Acid Darrell (0.7-2.0) mmol/L Total Bilirubin 2.2 H (0.2-1.3) mg/dL AST 2780 H (14-36) U/L ALT 598 H (9-52) U/L Total Creatine Kinase 228 H (30-135) U/L CK-MB (CK-2) 7.8 H* (0.0-2.4) ng/mL Troponin I 0.287 H* (0.000-0.034) ng/mL Total Protein 5.2 L (6.3-8.2) g/dL Albumin 2.6 L (3.5-5.0) g/dL Ur Oxycodone Screen (NotDetected) Ur Amphetamines Screen (NotDetected) U Benzodiazepines Scrn (NotDetected) 03/17/17 03/17/17 03/17/17 Range/Units 09:48 09:48 10:08 Hct (34.0-46.0) % MCHC (31.0-37.0) g/dL RDW (11.5-15.5) % Lymphocytes # (Manual) (1.0-4.8) k/uL Metamyelocytes # (Man) (0) k/uL PT 34.8 H (9.0-12.0) sec INR 3.6 H (<1.2) APTT 36.6 H (22.0-30.0) sec ABG pH (7.35-7.45) ABG pO2 (83-108) mmHg ABG HCO3 (21-25) mmol/L ABG Total CO2 (19-24) mmol/L ABG O2 Saturation (94-97) % Sodium (137-145) mmol/L Potassium (3.5-5.1) mmol/L Chloride (98-107) mmol/L Carbon Dioxide (22-30) mmol/L BUN (7-17) mg/dL Creatinine (0.52-1.04) mg/dL Glucose (74-99) mg/dL POC Glucose (mg/dL) (75-99) mg/dL Plasma Lactic Acid Darrell 10.8 H* (0.7-2.0) mmol/L Total Bilirubin (0.2-1.3) mg/dL AST (14-36) U/L ALT (9-52) U/L Total Creatine Kinase (30-135) U/L CK-MB (CK-2) (0.0-2.4) ng/mL Troponin I (0.000-0.034) ng/mL Total Protein (6.3-8.2) g/dL Albumin (3.5-5.0) g/dL Ur Oxycodone Screen Detected H (NotDetected) Ur Amphetamines Screen Detected H (NotDetected) U Benzodiazepines Scrn Detected H (NotDetected) 03/17/17 03/17/17 03/17/17 Range/Units 10:27 11:25 13:25 Hct (34.0-46.0) % MCHC (31.0-37.0) g/dL RDW (11.5-15.5) % Lymphocytes # (Manual) (1.0-4.8) k/uL Metamyelocytes # (Man) (0) k/uL PT (9.0-12.0) sec INR (<1.2) APTT (22.0-30.0) sec ABG pH 7.26 L (7.35-7.45) ABG pO2 391 H (83-108) mmHg ABG HCO3 16 L (21-25) mmol/L ABG Total CO2 17 L (19-24) mmol/L ABG O2 Saturation 100.0 H (94-97) % Sodium (137-145) mmol/L Potassium 6.6 H* (3.5-5.1) mmol/L Chloride (98-107) mmol/L Carbon Dioxide (22-30) mmol/L BUN (7-17) mg/dL Creatinine (0.52-1.04) mg/dL Glucose (74-99) mg/dL POC Glucose (mg/dL) 27 L (75-99) mg/dL Plasma Lactic Acid Darrell (0.7-2.0) mmol/L Total Bilirubin (0.2-1.3) mg/dL AST (14-36) U/L ALT (9-52) U/L Total Creatine Kinase (30-135) U/L CK-MB (CK-2) (0.0-2.4) ng/mL Troponin I (0.000-0.034) ng/mL Total Protein (6.3-8.2) g/dL Albumin (3.5-5.0) g/dL Ur Oxycodone Screen (NotDetected) Ur Amphetamines Screen (NotDetected) U Benzodiazepines Scrn (NotDetected) 03/17/17 03/17/17 Range/Units 14:11 15:01 Hct (34.0-46.0) % MCHC (31.0-37.0) g/dL RDW (11.5-15.5) % Lymphocytes # (Manual) (1.0-4.8) k/uL Metamyelocytes # (Man) (0) k/uL PT (9.0-12.0) sec INR (<1.2) APTT (22.0-30.0) sec ABG pH (7.35-7.45) ABG pO2 (83-108) mmHg ABG HCO3 (21-25) mmol/L ABG Total CO2 (19-24) mmol/L ABG O2 Saturation (94-97) % Sodium (137-145) mmol/L Potassium (3.5-5.1) mmol/L Chloride (98-107) mmol/L Carbon Dioxide (22-30) mmol/L BUN (7-17) mg/dL Creatinine (0.52-1.04) mg/dL Glucose (74-99) mg/dL POC Glucose (mg/dL) 23 L 156 H (75-99) mg/dL Plasma Lactic Acid Darrell (0.7-2.0) mmol/L Total Bilirubin (0.2-1.3) mg/dL AST (14-36) U/L ALT (9-52) U/L Total Creatine Kinase (30-135) U/L CK-MB (CK-2) (0.0-2.4) ng/mL Troponin I (0.000-0.034) ng/mL Total Protein (6.3-8.2) g/dL Albumin (3.5-5.0) g/dL Ur Oxycodone Screen (NotDetected) Ur Amphetamines Screen (NotDetected) U Benzodiazepines Scrn (NotDetected) Thrombosis Risk Factor Assmnt - DVT/VTE Prophylaxis DVT/VTE Prophylaxis: Mechanical Prophylaxis ordered Assessment and Plan Plan: Assessment and plan: 1. Acute ventilator-dependent respiratory failure due to acute septic shock due to pneumoperitoneum with perforated viscus and possible abscess formation. Patient was admitted to the intensive care unit and family elected not to go for any surgical intervention at this time, patient was admitted under were service with critical care consult as well as general surgery consult she was started on IV antibiotic in the form of Levaquin and Zosyn and Flagyl, patient is to be maintained on Levothroid drip to keep her pressure up, patient's prognosis is very dismal at this point in time. Family is aware of the is being eminent 2. Pneumoperitoneum with septic shock and multiorgan failure including the liver failure and renal failure and hypoglycemia this indicates a very poor prognosis. 3. acute kidney injury secondary to above. Continue IV fluid resuscitation. 4. acute liver failure with underlying coagulopathy, hypoglycemia, disturbed LFTs. 5.acute hyperkalemia. 6. hypotension/shock secondary to above currently pressor dependent 7. advanced COPD. currently being intubated. 8 .chronic hypoxic respiratory failure. Currently being intubated. 9. history of lung cancer with recently found right lung spiculated lesion suggestive of malignancy. 10. fibromyalgia. 11. hypertension. Currently hypotensive due to septic shock. 12. severe pulmonary hypertension with signs of right-sided heart failure 13. hyperlipidemia. 14. Chronic tobacco use and dependence. 15 .chronic opiate dependence maintained on oxycodone 16. Severe protein calorie malnourishment/cachexia. 17. Prognosis very guarded, initiate comfort care in the intensive care unit.
[2017-03-17] MEDS: PIPERACILLIN-TAZOBACTAM 3.375 GM in DEXTROSE/WATER 1 50ML.BAG IVPB SCH (17:00)
[2017-03-17 17:33] VITALS: TEMP 97.6
--- NOTE | 2017-03-17 17:38 | PCN ---
PROCEDURE NOTE PROCEDURE NOTE: Insertion of a triple-lumen catheter. TRIPLE LUMEN CATHETER PLACEMENT INDICATION: Hemodynamic monitoring/Intravenous access. PREOP DIAGNOSIS: Shock. POSTOP DIAGNOSIS: Shock. DESCRIPTION OF PROCEDURE: A time-out was completed verifying correct patient, procedure, site, positioning, and implant(s) or special equipment if applicable. The patient was placed in a dependent position appropriate for triple lumen catheter placement based on the vein to be cannulated. The patients right neck was prepped and draped in sterile fashion. 1% Lidocaine was used to anesthetize the surrounding skin area. A triple lumen 9F Cordis catheter was introduced into the internal jugular vein using Seldinger technique. The catheter was threaded smoothly over the guide wire and appropriate blood return was obtained. Each lumen of the catheter was evacuated of air and flushed with sterile saline. The catheter was then sutured in place to the skin and a sterile dressing applied. Perfusion to the extremity distal to the point of catheter insertion was checked and found to be adequate. No complications. MMODL / IJN: [id number] /
[2017-03-17 18:33] LABS: Glucose,Whole Blood 202 mg/dL (75-99)
[2017-03-17 20:07] LABS: Glucose,Whole Blood 184 mg/dL (75-99)
--- NOTE | 2017-03-17 20:10 | P.GSCN ---
History of Present Illness Consult date: 03/17/17 Reason for Consult: Abdominal pain Requesting physician: Jeffy Perales History of present illness: The patient is a 71-year-old female who presented to the emergency room unresponsive. I was asked to see the patient emergently in the ER as she came in unresponsive. Her 2 sons are at bedside who reports at least more than 12 hours with the patient being unresponsive. One of her sons was able to speak to her just yesterday. Patient has baseline severe COPD including multiple comorbidities. The patient has been intubated and currently has orogastric tube. Most of her history is obtained from her family members including medical records. She was being evaluated for a lung nodule. She had a chest x-ray obtained approximately 3+ days ago. She has occasional constipation. She last ate yesterday with minimal appetite. Early this morning, the patient had chills. She had reportedly agonal respirations. She was unresponsive as a result, hence she was brought to the emergency room. Review of Systems Unobtainable as the patient is intubated and was unresponsive. Past Medical History Past Medical History: Cancer, COPD, Fibromyalgia, Hyperlipidemia, Hypertension, Musculoskeletal Disorder, Osteoarthritis (OA), Pneumonia Additional Past Medical History / Comment(s): COPD, chronic hypoxic respiratory failure, lung cancer with previous lung surgery till in 2 years ago, severe pulmonary hypertension evidence of right-sided heart failure, fibromyalgia, osteoarthritis, chronic pain, chronic constipation, questionable sedated lesion in the right lung measuring 2.7 cm in size and it was found during her most hospitalization, hyperlipidemia, cachexia and severe malnourishment, chronic COPD, remote history of lung cancer, CHF with a right-sided heart failure and severe pulmonary hypertension, hyperlipidemia, hypertension, fibromyalgia, osteoarthritis, chronic constipatio pain killer dependence. History of Any Multi-Drug Resistant Organisms: None Reported Past Surgical History: Adenoidectomy, Joint Replacement, Orthopedic Surgery, Tonsillectomy Additional Past Surgical History / Comment(s): left lower lung removed, left total knee arthroplasty, tonsillectomy and adenoidectomy. Past Psychological History: No Psychological Hx Reported Smoking Status: Current every day smoker Past Alcohol Use History: None Reported Past Drug Use History: None Reported - Past Family History Mother Family Medical History: Cancer Additional Family Medical History / Comment(s): colon CA Father Family Medical History: Vascular Disorder Sister(s) Family Medical History: Cancer, Renal Disease Son(s) Family Medical History: No Reported History Medications and Allergies Home Medications Medication Instructions Recorded Confirmed Type Fenofibrate Nanocrystallized 145 mg PO DAILY 08/27/15 03/17/17 History [Fenofibrate] Metoprolol Tartrate 25 mg PO BID 08/27/15 03/17/17 History Pregabalin [Lyrica] 75 mg PO BID 08/27/15 03/17/17 History oxyCODONE HCL/ACETAMINOPHEN 1 tab PO TID 08/27/15 03/17/17 History [Oxycodone-Acetaminophen 10-325] Albuterol Inhaler [Ventolin Hfa 2 puff INHALATION RT-QID PRN 11/13/16 03/17/17 History Inhaler] Aspirin EC [Ecotrin Low Dose] 81 mg PO DAILY #30 tablet. 11/17/16 03/17/17 Rx Aspirin/Acetaminophen/Caffeine 2 tab PO BID PRN 03/17/17 03/17/17 History [Excedrin Extra Strength Caplet] Bismuth Subsalicylate 262 mg PO BID PRN 03/17/17 03/17/17 History [Pepto-Bismol] Calcium Carbonate/Vitamin D3 1 tab PO DAILY 03/17/17 03/17/17 History [Calcium 600-Vit D3 400 Tablet] Cyclobenzaprine [Flexeril] 10 mg PO DAILY PRN 03/17/17 03/17/17 History Dextroamphetamine/Amphetamine 15 mg PO QAM 03/17/17 03/17/17 History [Adderall] Dicyclomine [Bentyl] 10 mg PO QID PRN 03/17/17 03/17/17 History Furosemide [Lasix] 20 mg PO DAILY PRN 03/17/17 03/17/17 History LORazepam [Ativan] 1 mg PO TID 03/17/17 03/17/17 History Tiotropium 18 Mcg/Puff [Spiriva] 1 cap INHALATION RT-DAILY 03/17/17 03/17/17 History Allergies Allergy/AdvReac Type Severity Reaction Status Date / Time No Known Allergies Allergy Verified 03/17/17 10:06 Surgical - Exam Vital Signs Temp Pulse Resp BP Pulse Ox 96.8 F L 66 6 L 105/57 97 03/17/17 09:38 03/17/17 09:38 03/17/17 09:38 03/17/17 09:38 03/17/17 09:38 GENERAL: Cachectic female who is unresponsive. HEENT: No sclera icterus. Dry buccal mucosa. Head is atraumatic, normocephalic. Orogastric tube with blood. NECK: JV distention. CHEST: On mechanical ventilation. Equal bilateral excursions with ventilation. CARDIOVASCULAR: Tachycardic. Palpable 2+ femoral pulses. ABDOMEN: Soft, mildly distended. No rigidity. MUSCULOSKELETAL: Has cyanosis of the bilateral feet ascending to the ankles. NEUROLOGIC: Patient is unresponsive to speech or command. PSYCH: Patient is unresponsive and intubated. SKIN: Cool to touch. Poor skin turgor. Results - Labs 03/17/17 09:48 03/17/17 11:25 Abnormal Lab Results - Last 24 Hours (Table) 03/17/17 03/17/17 03/17/17 Range/Units 09:48 09:48 09:48 Hct 50.8 H (34.0-46.0) % MCHC 29.5 L (31.0-37.0) g/dL RDW 18.2 H (11.5-15.5) % Lymphocytes # (Manual) 0.77 L (1.0-4.8) k/uL Metamyelocytes # (Man) 0.07 H (0) k/uL PT (9.0-12.0) sec INR (<1.2) APTT (22.0-30.0) sec ABG pH (7.35-7.45) ABG pO2 (83-108) mmHg ABG HCO3 (21-25) mmol/L ABG Total CO2 (19-24) mmol/L ABG O2 Saturation (94-97) % Sodium 134 L (137-145) mmol/L Potassium 7.9 H* (3.5-5.1) mmol/L Chloride 94 L (98-107) mmol/L Carbon Dioxide 18 L (22-30) mmol/L BUN 58 H (7-17) mg/dL Creatinine 2.81 H (0.52-1.04) mg/dL Glucose <20 L* (74-99) mg/dL POC Glucose (mg/dL) (75-99) mg/dL Plasma Lactic Acid Darrell (0.7-2.0) mmol/L Total Bilirubin 2.2 H (0.2-1.3) mg/dL AST 2780 H (14-36) U/L ALT 598 H (9-52) U/L Total Creatine Kinase 228 H (30-135) U/L CK-MB (CK-2) 7.8 H* (0.0-2.4) ng/mL Troponin I 0.287 H* (0.000-0.034) ng/mL Total Protein 5.2 L (6.3-8.2) g/dL Albumin 2.6 L (3.5-5.0) g/dL Ur Oxycodone Screen (NotDetected) Ur Amphetamines Screen (NotDetected) U Benzodiazepines Scrn (NotDetected) 03/17/17 03/17/17 03/17/17 Range/Units 09:48 09:48 10:08 Hct (34.0-46.0) % MCHC (31.0-37.0) g/dL RDW (11.5-15.5) % Lymphocytes # (Manual) (1.0-4.8) k/uL Metamyelocytes # (Man) (0) k/uL PT 34.8 H (9.0-12.0) sec INR 3.6 H (<1.2) APTT 36.6 H (22.0-30.0) sec ABG pH (7.35-7.45) ABG pO2 (83-108) mmHg ABG HCO3 (21-25) mmol/L ABG Total CO2 (19-24) mmol/L ABG O2 Saturation (94-97) % Sodium (137-145) mmol/L Potassium (3.5-5.1) mmol/L Chloride (98-107) mmol/L Carbon Dioxide (22-30) mmol/L BUN (7-17) mg/dL Creatinine (0.52-1.04) mg/dL Glucose (74-99) mg/dL POC Glucose (mg/dL) (75-99) mg/dL Plasma Lactic Acid Darrell 10.8 H* (0.7-2.0) mmol/L Total Bilirubin (0.2-1.3) mg/dL AST (14-36) U/L ALT (9-52) U/L Total Creatine Kinase (30-135) U/L CK-MB (CK-2) (0.0-2.4) ng/mL Troponin I (0.000-0.034) ng/mL Total Protein (6.3-8.2) g/dL Albumin (3.5-5.0) g/dL Ur Oxycodone Screen Detected H (NotDetected) Ur Amphetamines Screen Detected H (NotDetected) U Benzodiazepines Scrn Detected H (NotDetected) 03/17/17 03/17/17 03/17/17 Range/Units 10:27 11:25 13:25 Hct (34.0-46.0) % MCHC (31.0-37.0) g/dL RDW (11.5-15.5) % Lymphocytes # (Manual) (1.0-4.8) k/uL Metamyelocytes # (Man) (0) k/uL PT (9.0-12.0) sec INR (<1.2) APTT (22.0-30.0) sec ABG pH 7.26 L (7.35-7.45) ABG pO2 391 H (83-108) mmHg ABG HCO3 16 L (21-25) mmol/L ABG Total CO2 17 L (19-24) mmol/L ABG O2 Saturation 100.0 H (94-97) % Sodium (137-145) mmol/L Potassium 6.6 H* (3.5-5.1) mmol/L Chloride (98-107) mmol/L Carbon Dioxide (22-30) mmol/L BUN (7-17) mg/dL Creatinine (0.52-1.04) mg/dL Glucose (74-99) mg/dL POC Glucose (mg/dL) 27 L (75-99) mg/dL Plasma Lactic Acid Darrell (0.7-2.0) mmol/L Total Bilirubin (0.2-1.3) mg/dL AST (14-36) U/L ALT (9-52) U/L Total Creatine Kinase (30-135) U/L CK-MB (CK-2) (0.0-2.4) ng/mL Troponin I (0.000-0.034) ng/mL Total Protein (6.3-8.2) g/dL Albumin (3.5-5.0) g/dL Ur Oxycodone Screen (NotDetected) Ur Amphetamines Screen (NotDetected) U Benzodiazepines Scrn (NotDetected) 03/17/17 03/17/17 03/17/17 Range/Units 14:11 15:01 16:02 Hct (34.0-46.0) % MCHC (31.0-37.0) g/dL RDW (11.5-15.5) % Lymphocytes # (Manual) (1.0-4.8) k/uL Metamyelocytes # (Man) (0) k/uL PT (9.0-12.0) sec INR (<1.2) APTT (22.0-30.0) sec ABG pH (7.35-7.45) ABG pO2 (83-108) mmHg ABG HCO3 (21-25) mmol/L ABG Total CO2 (19-24) mmol/L ABG O2 Saturation (94-97) % Sodium (137-145) mmol/L Potassium (3.5-5.1) mmol/L Chloride (98-107) mmol/L Carbon Dioxide (22-30) mmol/L BUN (7-17) mg/dL Creatinine (0.52-1.04) mg/dL Glucose (74-99) mg/dL POC Glucose (mg/dL) 23 L 156 H 176 H (75-99) mg/dL Plasma Lactic Acid Darrell (0.7-2.0) mmol/L Total Bilirubin (0.2-1.3) mg/dL AST (14-36) U/L ALT (9-52) U/L Total Creatine Kinase (30-135) U/L CK-MB (CK-2) (0.0-2.4) ng/mL Troponin I (0.000-0.034) ng/mL Total Protein (6.3-8.2) g/dL Albumin (3.5-5.0) g/dL Ur Oxycodone Screen (NotDetected) Ur Amphetamines Screen (NotDetected) U Benzodiazepines Scrn (NotDetected) 03/17/17 03/17/17 Range/Units 16:43 18:19 Hct (34.0-46.0) % MCHC (31.0-37.0) g/dL RDW (11.5-15.5) % Lymphocytes # (Manual) (1.0-4.8) k/uL Metamyelocytes # (Man) (0) k/uL PT (9.0-12.0) sec INR (<1.2) APTT (22.0-30.0) sec ABG pH (7.35-7.45) ABG pO2 (83-108) mmHg ABG HCO3 (21-25) mmol/L ABG Total CO2 (19-24) mmol/L ABG O2 Saturation (94-97) % Sodium (137-145) mmol/L Potassium (3.5-5.1) mmol/L Chloride (98-107) mmol/L Carbon Dioxide (22-30) mmol/L BUN (7-17) mg/dL Creatinine (0.52-1.04) mg/dL Glucose (74-99) mg/dL POC Glucose (mg/dL) 202 H (75-99) mg/dL Plasma Lactic Acid Darrell 9.4 H* (0.7-2.0) mmol/L Total Bilirubin (0.2-1.3) mg/dL AST (14-36) U/L ALT (9-52) U/L Total Creatine Kinase (30-135) U/L CK-MB (CK-2) (0.0-2.4) ng/mL Troponin I (0.000-0.034) ng/mL Total Protein (6.3-8.2) g/dL Albumin (3.5-5.0) g/dL Ur Oxycodone Screen (NotDetected) Ur Amphetamines Screen (NotDetected) U Benzodiazepines Scrn (NotDetected) Diabetes panel 03/17/17 03/17/17 Range/Units 09:48 11:25 Sodium 134 L (137-145) mmol/L Potassium 7.9 H* 6.6 H* (3.5-5.1) mmol/L Chloride 94 L (98-107) mmol/L Carbon Dioxide 18 L (22-30) mmol/L BUN 58 H (7-17) mg/dL Creatinine 2.81 H (0.52-1.04) mg/dL Glucose <20 L* (74-99) mg/dL Calcium 8.9 (8.4-10.2) mg/dL AST 2780 H (14-36) U/L ALT 598 H (9-52) U/L Alkaline Phosphatase 118 (38-126) U/L Total Protein 5.2 L (6.3-8.2) g/dL Albumin 2.6 L (3.5-5.0) g/dL Calcium panel 03/17/17 Range/Units 09:48 Calcium 8.9 (8.4-10.2) mg/dL Albumin 2.6 L (3.5-5.0) g/dL Pituitary panel 03/17/17 03/17/17 Range/Units 09:48 11:25 Sodium 134 L (137-145) mmol/L Potassium 7.9 H* 6.6 H* (3.5-5.1) mmol/L Chloride 94 L (98-107) mmol/L Carbon Dioxide 18 L (22-30) mmol/L BUN 58 H (7-17) mg/dL Creatinine 2.81 H (0.52-1.04) mg/dL Glucose <20 L* (74-99) mg/dL Calcium 8.9 (8.4-10.2) mg/dL Adrenal panel 03/17/17 03/17/17 Range/Units 09:48 11:25 Sodium 134 L (137-145) mmol/L Potassium 7.9 H* 6.6 H* (3.5-5.1) mmol/L Chloride 94 L (98-107) mmol/L Carbon Dioxide 18 L (22-30) mmol/L BUN 58 H (7-17) mg/dL Creatinine 2.81 H (0.52-1.04) mg/dL Glucose <20 L* (74-99) mg/dL Calcium 8.9 (8.4-10.2) mg/dL Total Bilirubin 2.2 H (0.2-1.3) mg/dL AST 2780 H (14-36) U/L ALT 598 H (9-52) U/L Alkaline Phosphatase 118 (38-126) U/L Total Protein 5.2 L (6.3-8.2) g/dL Albumin 2.6 L (3.5-5.0) g/dL - Imaging Comments: CT of the head was reviewed personally demonstrated no hemorrhagic stroke. Chest x-ray: report reviewed, image reviewed CT scan - abdomen: report reviewed, image reviewed CT scan - pelvis: report reviewed, image reviewed Additional studies: CT of them pelvis was reviewed demonstrating diffuse ascites with small amount of pneumoperitoneum at the liver. Moderate stool burden along the cecum and ascending colon. Possible lesions involving the liver. Chest x-ray without large free air. Assessment and Plan (1) Multi-organ failure with liver failure Status: Acute (2) Unresponsiveness Status: Acute (3) Respiratory failure Status: Acute (4) Sepsis Status: Acute (5) Ascites Status: Acute (6) Intra-abdominal abscess Status: Acute (7) Kidney failure Status: Acute (8) Liver failure Status: Acute (9) Peritoneal free air Status: Acute (10) Acute exacerbation of chronic obstructive airways disease Status: Acute (11) Elevated troponin Status: Acute (12) Lung mass Status: Acute (13) Hyperkalemia Status: Acute (14) Coagulopathy Status: Acute (15) Acidosis Status: Acute Plan: 1. Diagnostic studies were reviewed in detail. Findings included moderate ascites including retained fecal matter of the cecum and some few small areas of pneumoperitoneum is identified as I personally reviewed her studies. 2. Patient presents with multisystem organ failure including unresponsive, kidney failure, coagulopathic, hyperkalemic, liver failure, respiratory failure and are requiring pressors. 3. With these findings, I had a detailed discussion with the patient's family including high chance of immediate mortality upon attempting surgery. 4. As a result, comfort care was described as an option. The patient's family were encouraged to be at bedside along with her as they are awaiting their father's presence and final decision. Critical care time over 45 minutes.
[2017-03-17 23:55] LABS: Glucose,Whole Blood 136 mg/dL (75-99)
[2017-03-18] MEDS: PIPERACILLIN-TAZOBACTAM 3.375 GM in DEXTROSE/WATER 1 50ML.BAG IVPB SCH (00:55)
[2017-03-18] MEDS: metroNIDAZOLE-NS PMX 500 MG in SALINE 1 100ML.BAG IVPB SCH ×2 (00:56→06:02)
[2017-03-18 02:50] LABS: Glucose,Whole Blood 41 mg/dL (75-99)
[2017-03-18] MEDS ORDERED: DEXTROSE 10 % IN WATER 250 ML IV STA ×4 (02:55→05:48)
[2017-03-18 03:25] LABS: Glucose,Whole Blood 53 mg/dL (75-99)
[2017-03-18 03:51] LABS: Glucose,Whole Blood 77 mg/dL (75-99)
[2017-03-18 04:56] LABS: Glucose,Whole Blood 45 mg/dL (75-99)
[2017-03-18 05:36] LABS: Glucose,Whole Blood 68 mg/dL (75-99)
[2017-03-18 05:42] LABS: INR 3.5 (<1.2); Partial Thromboplastin Time 52.7 sec (22.0-30.0); Prothrombin Time 34.1 sec (9.0-12.0)
[2017-03-18 05:45] LABS: Calcium 7.2 mg/dL (8.4-10.2); Magnesium 1.6 mg/dL (1.6-2.3); Total Bilirubin 3.7 mg/dL (0.2-1.3); Total Protein 3.9 g/dL (6.3-8.2)
[2017-03-18 06:04] LABS: Anisocytosis Slight; CH 26.9; CHCM 27.2; HCT 40.6 % (34.0-46.0); HDW 2.79; Hypochromasia Marked; Immature Gran Flag Marked; Large Platelets Flag Marked; MCH 28.9 pg (25.0-35.0); MCHC 29.1 g/dL (31.0-37.0); Macrocytosis Slight; RBC 4.08 m/uL (3.80-5.40); RDW 16.8 % (11.5-15.5); WBC (Perox) 11.41
[2017-03-18 06:05] LABS: HGB 11.8 gm/dL (11.4-16.0); MCV 99.5 fL (80.0-100.0)
[2017-03-18 06:11] LABS: Potassium 6.7 mmol/L (3.5-5.1)
[2017-03-18 06:12] LABS: Phosphorous 9.2 mg/dL (2.5-4.5)
[2017-03-18 06:16] VITALS: BP 31/22
[2017-03-18 06:26] LABS: Glucose,Whole Blood 88 mg/dL (75-99)
[2017-03-18 06:41] LABS: Add Differential Manual Differential
[2017-03-18 06:45] LABS: Band Neutrophils % 8 %; Manual Review Performed; Nucleated Red Blood Cells 7 /100 WBC (0-0); Total Cells Counted 200; WBC 10.6 k/uL (3.8-10.6)
[2017-03-18 06:46] LABS: Large Platelets Present
[2017-03-18 07:49] VITALS: BMI 21.4
--- NOTE | 2017-03-18 08:25 | P.PN ---
Progress Note - Text This 71-year-old female patient has pneumoperitoneum, septic shock and multisystem organ failure. Decision was not to proceed with surgery knowing that this is a absolute mortality with or without surgery. Based on that the patient was brought in to the intensive care unit for comfort care measures. The family opted to wait another 12 hours and continue with the vent support until more family arrive to the ICU. The patient remains completely unresponsive. Overnight she was kept on a mechanical ventilator. She was profoundly hypotensive. The systolic blood pressures in the mid 40s. Mortality is eminent. Proceed with comfort care this morning.
[2017-03-18] MEDS ORDERED: MORPHINE SULFATE 4 MG/ML SYRINGE IVP ONE (09:00)
[2017-03-18] MEDS ORDERED: LORazepam 2 MG/ML SYRINGE IV PRN (09:00)
[2017-03-18] MEDS ORDERED: SCOPOLAMINE 1.5MG/72HR PATCH TRANSDERM PRN (09:00)
[2017-03-18] MEDS ORDERED: MORPHINE SULFATE (100 MG/2 ML) 100 MG in SODIUM CHLORIDE 0.9% 100 ML IV SCH (09:00)
[2017-03-18 09:09] VITALS: PULSE 80; RESP 24
--- NOTE | 2017-03-18 10:54 | P.PN ---
Progress Note - Text Patient has been made comfort care. I spoke to the patient's . My condolences to her family.
[2017-03-18] MEDS ORDERED: LEVOFLOXACIN 750MG-D5W PMX 750 MG in DEXTROSE/WATER 1 150ML.BAG IVPB SCH (14:00)
--- NOTE | 2017-03-21 08:28 | P.DS ---
Providers Date of admission: 03/17/17 15:05 Expected date of discharge: 03/18/17 Attending physician: Abhijeet Cardenas Consults: 03/17/17 15:05 Consult Physician Urgent Consulting Provider: Cristiana Kohler Consult Reason/Comments: Intra-abdominal abscess Do you want consulting provider notified?: Yes 03/17/17 15:33 Consult Physician Urgent Consulting Provider: Jeffy Perales Consult Reason/Comments: ICU and vent. management/resp. failure Do you want consulting provider notified?: Already Contacted [facility]: This is a 71-year-old female one of with a previous medical history significant for advanced COPD, chronic hypoxic respiratory failure, severe pulmonary hypertension with a right-sided failure, along with history of hyperlipidemia, hypertension and hypertensive cardio vascular disease, fibromyalgia maintained on oral narcotic medication for pain control, once patient chronic constipation, apparently the patient was found by a family member unresponsive patient was brought into the emergency department at [facility],this patient arrived to the emergency department unresponsive. She was not responding to any verbal or painful stimulation. Based on that, the patient was immediately intubated and placed on a mechanical ventilator. The initial blood work showed marked derangements. The patient was severely acidotic and lactic acid level was at 10. No significant leukocytosis however the patient had 11% bandemia. She was in acute kidney injury and the creatinine was up to 2.8. Her potassium level was at 6.6. She had an anion gap metabolic acidosis a bicarb level of 18. Liver function tests were markedly abnormal with a LDL of 598 and AST of 2780. Bilirubin was at 2.0. Troponin was at 0.2. The post intubation blood gases showed a pH of 7.26 with a pCO2 of 36 and pO2 of 391. This was done while the patient being an assist-control of 12, tidal volume 400, FiO2 of 100% and PEEP of 5. CAT scan of the brain showed no acute intracranial process. There was mild to moderate diffuse age-related atrophy. Upon further evaluation, the patient was found to have some distended abdomen. Based on that a CAT scan of the abdomen was done that showed evidence of pneumoperitoneum. There was suspicious fecal debris's and the right pelvis in which there was a developing collection, probably an abscess. There was moderate amount of abdominal and pelvic ascites. The liver showed some new heterogeneous lesions probably abscesses. The patient was immediately given accommodation Zosyn and Levaquin and surgical consultation was requested. Meanwhile, the patient was noted to have abnormalities in the correlation profile and she will be given fresh frozen plasma. She was having episodes of hypoglycemia for which she was given D50 and placed on D5 water and later on she continued to have the same episodes of hypoglycemia for which she was placed on D10 at the rate of 100 mL an hour. Post intubation she was also found to be hypotensive currently on 10 mics of levophed a triple lumen cath was also inserted in his right IJ. Surgical consultation is pending at this point family elected not to go for any surgical intervention, they are aware that the is imminent. 02/15: Patient was made comfort care and on March 18. Please see nursing documentation for details. Discharge diagnoses: 1. Acute ventilator-dependent respiratory failure due to acute septic shock due to pneumoperitoneum with perforated viscus and possible abscess formation. 2. Pneumoperitoneum with septic shock and multiorgan failure including the liver failure and renal failure and hypoglycemia this indicates a very poor prognosis. 3. Acute kidney injury secondary to above. 4. Acute liver failure with underlying coagulopathy, hypoglycemia, disturbed LFTs. 5. Acute hyperkalemia. 6. Hypotension/shock secondary to above currently pressor dependent 7. Advanced COPD. 8. Chronic hypoxic respiratory failure. 9. History of lung cancer with recently found right lung spiculated lesion suggestive of malignancy. 10. Fibromyalgia. 11. Hypertension. 12. Severe pulmonary hypertension with signs of right-sided heart failure 13. Hyperlipidemia. 14. Chronic tobacco use and dependence. 15. Chronic opiate dependence maintained on oxycodone 16. Severe protein calorie malnourishment/cachexia. Impression and plan of care have been directed as dictated by the signing physician. Alisa Griffin nurse practitioner acting as scribe for signing physician. Cc: Dr. Pepe Patient Condition at Discharge: Undetermined Plan - Discharge Summary New Discharge Prescriptions: No Action oxyCODONE HCL/ACETAMINOPHEN [Oxycodone-Acetaminophen 10-325] 1 tab PO TID Pregabalin [Lyrica] 75 mg PO BID Metoprolol Tartrate 25 mg PO BID Fenofibrate Nanocrystallized [Fenofibrate] 145 mg PO DAILY Albuterol Inhaler [Ventolin Hfa Inhaler] 2 puff INHALATION RT-QID PRN PRN Reason: Shortness Of Breath Aspirin EC [Ecotrin Low Dose] 81 mg PO DAILY #30 tablet.dr Armendarizmutessence Subsalicylate [Pepto-Bismol] 262 mg PO BID PRN PRN Reason: Gi Upset Aspirin/Acetaminophen/Caffeine [Excedrin Extra Strength Caplet] 2 tab PO BID PRN PRN Reason: Pain Furosemide [Lasix] 20 mg PO DAILY PRN PRN Reason: Edema Calcium Carbonate/Vitamin D3 [Calcium 600-Vit D3 400 Tablet] 1 tab PO DAILY Tiotropium 18 Mcg/Puff [Spiriva] 1 cap INHALATION RT-DAILY Dicyclomine [Bentyl] 10 mg PO QID PRN PRN Reason: Abdominal Pain Cyclobenzaprine [Flexeril] 10 mg PO DAILY PRN PRN Reason: Muscle Spasm/Pain LORazepam [Ativan] 1 mg PO TID Dextroamphetamine/Amphetamine [Adderall] 15 mg PO QAM Discharge Medication List Fenofibrate Nanocrystallized [Fenofibrate] 145 mg PO DAILY 08/27/15 [History] Metoprolol Tartrate 25 mg PO BID 08/27/15 [History] Pregabalin [Lyrica] 75 mg PO BID 08/27/15 [History] oxyCODONE HCL/ACETAMINOPHEN [Oxycodone-Acetaminophen 10-325] 1 tab PO TID [History] Albuterol Inhaler [Ventolin Hfa Inhaler] 2 puff INHALATION RT-QID PRN 11/13/16 [ History] Aspirin EC [Ecotrin Low Dose] 81 mg PO DAILY #30 tablet. 11/17/16 [Rx] Aspirin/Acetaminophen/Caffeine [Excedrin Extra Strength Caplet] 2 tab PO BID PRN 03/17/17 [History] Bismuth Subsalicylate [Pepto-Bismol] 262 mg PO BID PRN 03/17/17 [History] Calcium Carbonate/Vitamin D3 [Calcium 600-Vit D3 400 Tablet] 1 tab PO DAILY 09/01 [History] Cyclobenzaprine [Flexeril] 10 mg PO DAILY PRN 03/17/17 [History] Dextroamphetamine/Amphetamine [Adderall] 15 mg PO QAM 03/17/17 [History] Dicyclomine [Bentyl] 10 mg PO QID PRN 03/17/17 [History] Furosemide [Lasix] 20 mg PO DAILY PRN 03/17/17 [History] LORazepam [Ativan] 1 mg PO TID 03/17/17 [History] Tiotropium 18 Mcg/Puff [Spiriva] 1 cap INHALATION RT-DAILY 03/17/17 [History] Follow up Appointment(s)/Referral(s): Heidi Pepe MD [Primary Care Provider] - 1-2 days Discharge Disposition: - Preliminary Cause of Preliminary Cause of : pneumoperitoneum with perforated viscus and possible abscess formation
== END 2017-03-18 13:20 | disposition expired | DRG 871 ==
LOC: EC 09:36 → 6ICU 15:05
PROVIDERS: ADMIT Internal Medicine; ATTEND Internal Medicine
PROC: 5A1935Z Respiratory Ventilation, Less than 24 Consecutive Hours (ICD-10-PCS; principal; 2017-03-17)
PROC: 0BH17EZ Insertion of Endotracheal Airway into Trachea, Via Natural or Artificial Opening (ICD-10-PCS; 2017-03-17)
PROC: 05HM33Z Insertion of Infusion Device into Right Internal Jugular Vein, Percutaneous Approach (ICD-10-PCS; 2017-03-17)
DX: A41.9 Sepsis, unspecified organism (principal); K72.00 Acute and subacute hepatic failure without coma; J96.21 Acute and chronic respiratory failure with hypoxia; K65.1 Peritoneal abscess; R65.21 Severe sepsis with septic shock; K63.1 Perforation of intestine (nontraumatic); E43 Unspecified severe protein-calorie malnutrition; E87.2 Acidosis; N17.9 Acute kidney failure, unspecified; D68.9 Coagulation defect, unspecified; F11.20 Opioid dependence, uncomplicated; Z51.5 Encounter for palliative care; J44.1 Chronic obstructive pulmonary disease with (acute) exacerbation; R18.8 Other ascites; I11.0 Hypertensive heart disease with heart failure; I50.9 Heart failure, unspecified; E87.5 Hyperkalemia; I27.2 Other secondary pulmonary hypertension; E16.2 Hypoglycemia, unspecified; E78.5 Hyperlipidemia, unspecified; F17.200 Nicotine dependence, unspecified, uncomplicated; K59.00 Constipation, unspecified; M79.7 Fibromyalgia; G89.29 Other chronic pain; M19.90 Unspecified osteoarthritis, unspecified site; R74.8 Abnormal levels of other serum enzymes; K66.8 Other specified disorders of peritoneum; R91.8 Other nonspecific abnormal finding of lung field; Z96.652 Presence of left artificial knee joint; Z85.118 Personal history of other malignant neoplasm of bronchus and lung; Z79.82 Long term (current) use of aspirin; Z79.899 Other long term (current) drug therapy
CPT/HCPCS: 36415; 36600; 43753; 70450; 71010; 74176; 80053; 80306; 81003; 82140; 82550; 82553; 82805; 83520; 83605; 83735; 84100; 84132; 84484; 85025; 85610; 85730; 86850; 86900; 86901; 87040; 93005; 94002; 94003; 96365; 96366; 96367; 96368; 96375; 99291